=== PATIENT | female | born 1940 | race Caucasian/White ===

== ENCOUNTER 2017-01-01 17:32 | Emergency (ER) | payer MEDICARE ==
--- NOTE | 2017-01-01 18:11 | ERPHSYRPT ---
- History of Present Illness Time Seen by Provider: 01/01/17 18:04 Source: patient, family Patient Subjective Stated Complaint: stepped off ladder too soon and twisted right knee. also having pain to right hand Triage Nursing Assessment: amublated to room limping on right leg. skin w/d, color normal, resp easy. right knee tender to touch. no swelling noted. good pedal pulse noted Physician History: CC: fall Hx: 76 y/o patient of Dr Estrada/Stefanie stepped off second rung of ladder and fell at 2:30 PM today. She twisted and injured the right knee. No neck or back pain. No other injuries. No lOC. Not better with ice so came to ER. She has bilateral knee prosthesis. Severity of Pain-Max: moderate Severity of Pain-Current: moderate Lower Extremities Pain: knee: right Allergies/Adverse Reactions: Penicillins Allergy (Mild, Verified 01/01/17 18:06) rash ibuprofen [From Motrin] Allergy (Unknown, Verified 01/01/17 18:06) Swelling high doses only soy Allergy (Unknown, Verified 01/01/17 18:06) Swelling swell to the point of suffocation aspirin Adverse Reaction (Verified 01/01/17 18:06) pt is on low dose and dose fine. Pt states she brakes out with regular dose asa Home Medications: Iron,Carbonyl [Iron Chews] 65 mg PO DAILY 09/25/14 [History] Multivitamin [Multivitamins] 1 cap PO DAILY 09/25/14 [History] Omeprazole 40 mg PO DAILY 09/25/14 [History] Potassium 99 mg PO DAILY PRN PRN 09/25/14 [History] Torsemide [Demadex] 20 mg PO DAILY PRN PRN 09/25/14 [History] Alendronate Sodium 70 mg [Fosamax 70 MG] 70 mg PO WEEKLY 03/06/15 [History ] Folic Acid 1 mg PO DAILY 03/06/15 [History] Losartan Potassium 100 mg PO DAILY 03/06/15 [History] Methotrexate Sodium [Methotrexate] 6 tab PO WEEKLY 03/06/15 [History] Naproxen Sodium 220 mg [Aleve 220 MG] 440 mg PO BID 11/14/15 [History] Hydrocodone Bit/Acetaminophen [Hydrocodon-Acetaminophen 5-325] 1 each PO Q6H PRN PRN 01/17/16 [History] Metoprolol Tartrate 25 mg [Lopressor 25MG Tab] 25 mg PO HS 01/17/16 [ History] Metoprolol Tartrate 50 mg [Lopressor 50 MG] 50 mg PO DAILY 01/17/16 [ History] Prednisone 10 mg [Deltasone 10 mg] 10 mg PO DAILY 01/17/16 [History] Hx Tetanus, Diphtheria Vaccination/Date Given: No (UP TO DATE) Hx Influenza Vaccination/Date Given: Yes Hx Pneumococcal Vaccination/Date Given: Yes - Review of Systems Constitutional: No Symptoms Respiratory: No Dyspnea Cardiac: No Chest Pain, No Syncope Abdominal/Gastrointestinal: No Abdominal Pain, No Nausea, No Vomiting Musculoskeletal: Fall, Injury (right knee), No Back Pain, No Neck Pain Neurological: No Focal Weakness, No Headache, No Parasthesia All Other Systems: Reviewed and Negative - Past Medical History Pertinent Past Medical History: Yes Neurological History: No Pertinent History ENT History: Cataracts Cardiac History: Hypertension, Other Respiratory History: COPD, Pneumonia, Sleep Apnea, Other Endocrine Medical History: No Pertinent History Musculoskeletal History: Arthritis, Rheumatoid Arthritis GI Medical History: GERD, Hemorrhoids, Polyps History: No Pertinent History Psycho-Social History: No Pertinent History Female Reproductive Disorders: Abnormal Uterine Bleeding Other Medical History: POLYMYALGIA, COPD, CPAP FOR NIGHT, OXYGEN FOR NIGHT USE. - Past Surgical History Past Surgical History: Yes Neuro Surgical History: No Pertinent History Cardiac: Cardiac Catheterization Respiratory: Lobectomy Gastrointestinal: Appendectomy Genitourinary: No Pertinent History Musculoskeletal: Orthopedic Surgery Female Surgical History: Hysterectomy Other Surgical History: ZAHIDA KNEE REPLACEMENTS, knee scopes also - Social History Smoking Status: Former smoker How long have you smoked: 1 year Exposure to second hand smoke: No Drug Use: none Patient Lives Alone: No - Nursing Vital Signs Nursing Vital Signs: Initial Vital Signs Temperature 97.6 F Temperature Source Oral Pulse Rate 67 Respiratory Rate 16 Pain Intensity 8 - Physical Exam General Appearance: alert, other (pleasant lady) Eyes, Ears, Nose, Throat Exam: normal ENT inspection, moist mucous membranes Neck Exam: normal inspection, non-tender, supple, No tenderness midline Cardiovascular/Respiratory Exam: chest non-tender, normal breath sounds, regular rate/rhythm Gastrointestinal/Abdominal Exam: non-tender, soft Back Exam: normal inspection, No vertebral tenderness Hips Exam: bilateral: non-tender, normal range of motion, no evidence of injury Knees Exam: right knee: bone tenderness Ankle Exam: bilateral ankle: non-tender, normal inspection, normal range of motion Foot Exam: bilateral foot: non-tender, normal inspection, normal range of motion Neuro/Tendon Exam: normal sensation (some neuropathy reported feet), normal motor functions Mental Status Exam: alert, oriented x 3, cooperative Skin Exam: warm, dry SpO2 Interpretation: normal SpO2: 96 Oxygen Delivery: Room Air - Course Nursing assessment & vital signs reviewed: Yes - Radiology Exams right knee X-ray Interpretation: Reviewed by me, No Fracture (harware intact) Ordered Tests: Active Orders 24 hr Category Date Time Status Cold Application STAT Care 01/01/17 18:08 Active KNEE (3 VIEWS) Stat Exams 01/01/17 18:08 Taken - Progress Progress Note: 01/01/17 18:51 She has a walker at home. Will use shivam wrap. Advised follow up with Dr Diaz. She declines pain meds here or at home. Counseled pt/family regarding: diagnosis, need for follow-up, rad results - Departure Time of Disposition: 18:51 Departure Disposition: Home Clinical Impression: History of arthroplasty of right knee Sprain of right knee Qualifiers: Encounter type: initial encounter Involved ligament of knee: other ligament Qualified Code(s): S83.8X1A - Sprain of other specified parts of right knee, initial encounter Condition: Stable Critical Care Time: No Referrals: TYREL ESTRADA MD [Primary Care Provider] - REJI DIAZ [NON-STAFF PHY W/O PRIVILEGES] - Instructions: Knee Sprain, Use an Elastic Bandage-Knee Sprain, Choose and Use a Walker Additional Instructions: Shivam wrap right knee. Ice packs off and on. Use a walker to limit weight beating. Follow up next week with Dr Rush.
[2017-01-01 19:07] VITALS: BP 140/62; PULSE 64; O2SAT 95
--- NOTE | 2017-01-02 08:05 | XRAY ---
Indication: Pain following twisting injury. Comparison: None 3 views of the right knee intact with osteopenia and previous total knee arthroplasty with intact prosthesis. Tiny anterior soft tissue calcified granulomas. No other bony, articular, or soft tissue abnormalities.
== END 2017-01-01 19:28 | disposition home or self-care (01) ==
LOC: ED 17:32
DX: S83.8X1A Sprain of other specified parts of right knee, initial encounter (principal); W11.XXXA Fall on and from ladder, initial encounter; X50.0XXA Overexertion from strenuous movement or load, initial encounter; Z98.890 Other specified postprocedural states; Z79.899 Other long term (current) drug therapy; I10 Essential (primary) hypertension; J44.9 Chronic obstructive pulmonary disease, unspecified
CPT/HCPCS: 73562; 99282

== ENCOUNTER 2017-05-23 20:05 | Observation (INO) | payer MEDICARE ==
[2017-05-23] MEDS ORDERED: Pepcid 20 MG VIAL IV ONE ×2 (20:13→20:23)
[2017-05-23] MEDS ORDERED: PROVENTIL 2.5 MG/3 ML NEB IH ONE ×4 (20:13→23:20)
[2017-05-23] MEDS ORDERED: solu-MEDROL 125 MG IV ONE (20:13)
[2017-05-23] MEDS ORDERED: Sodium Chloride 0.9% 1000 ML 1,000 ML IV SCH (20:15)
[2017-05-23] MEDS ORDERED: Sodium Chloride 0.9% 1000 ML 1,000 ML ONE (20:23)
[2017-05-23] MEDS ORDERED: solu-MEDROL 125 MG ONE (20:23)
--- NOTE | 2017-05-23 20:29 | ERPHSYRPT ---
- History of Present Illness Time Seen by Provider: 05/23/17 20:10 Historian: patient, family Physician History: CC: abd pain HX: 77 y/o patient of Dr Cazares has abd pain since this AM, similar to prior diverticulitis. Some urinary dribbling and freq and burning. She had diarrhea until yesterday but none today. No vomiting. No fever or chills. She finished her abtx prescribed for infection last month. Pain is aching and moderate. She had prior abdominal surgeries including cholecystectomy, ventral hernia, hysterectomy, unsure about appy. Timing/Duration: today Allergies/Adverse Reactions: Penicillins Allergy (Mild, Verified 01/01/17 18:06) rash ibuprofen [From Motrin] Allergy (Unknown, Verified 01/01/17 18:06) Swelling high doses only soy Allergy (Unknown, Verified 01/01/17 18:06) Swelling swell to the point of suffocation aspirin Adverse Reaction (Verified 01/01/17 18:06) pt is on low dose and dose fine. Pt states she brakes out with regular dose asa Home Medications: Iron,Carbonyl [Iron Chews] 65 mg PO DAILY 09/25/14 [History] Multivitamin [Multivitamins] 1 cap PO DAILY 09/25/14 [History] Omeprazole 40 mg PO DAILY 09/25/14 [History] Potassium 99 mg PO DAILY PRN PRN 09/25/14 [History] Torsemide [Demadex] 20 mg PO DAILY PRN PRN 09/25/14 [History] Alendronate Sodium 70 mg [Fosamax 70 MG] 70 mg PO WEEKLY 03/06/15 [History ] Folic Acid 1 mg PO DAILY 03/06/15 [History] Losartan Potassium 100 mg PO DAILY 03/06/15 [History] Methotrexate Sodium [Methotrexate] 6 tab PO WEEKLY 03/06/15 [History] Naproxen Sodium 220 mg [Aleve 220 MG] 440 mg PO BID 11/14/15 [History] Hydrocodone Bit/Acetaminophen [Hydrocodon-Acetaminophen 5-325] 1 each PO Q6H PRN PRN 01/17/16 [History] Metoprolol Tartrate 25 mg [Lopressor 25MG Tab] 25 mg PO HS 01/17/16 [ History] Metoprolol Tartrate 50 mg [Lopressor 50 MG] 50 mg PO DAILY 01/17/16 [ History] Prednisone 10 mg [Deltasone 10 mg] 10 mg PO DAILY 01/17/16 [History] Hx Tetanus, Diphtheria Vaccination/Date Given: No (UP TO DATE) Hx Influenza Vaccination/Date Given: Yes Hx Pneumococcal Vaccination/Date Given: Yes - Review of Systems Constitutional: Malaise, Weakness, No Fever, No Chills Eyes: No Symptoms Ears, Nose, & Throat: No Symptoms Respiratory: No Cough, No Dyspnea Cardiac: No Chest Pain Abdominal/Gastrointestinal: Abdominal Pain, No Nausea, No Vomiting, No Constipation Genitourinary Symptoms: Dysuria, Frequency, Hesitancy Skin: No Rash Neurological: No Focal Weakness, No Headache, No Parasthesia All Other Systems: Reviewed and Negative - Past Medical History Pertinent Past Medical History: Yes Neurological History: No Pertinent History ENT History: Cataracts Cardiac History: No Pertinent History Respiratory History: COPD Endocrine Medical History: No Pertinent History Musculoskeletal History: Osteoarthritis, Rheumatoid Arthritis, Other GI Medical History: GERD, Hemorrhoids, Polyps History: No Pertinent History Psycho-Social History: No Pertinent History Female Reproductive Disorders: Abnormal Uterine Bleeding Other Medical History: RA diagnosis 2014, goes for infusion every 8 weeks. - Past Surgical History Past Surgical History: Yes Neuro Surgical History: No Pertinent History Cardiac: Cardiac Catheterization Respiratory: Lobectomy Gastrointestinal: Appendectomy Genitourinary: No Pertinent History Musculoskeletal: Orthopedic Surgery Female Surgical History: Hysterectomy Other Surgical History: ZAHIDA KNEE REPLACEMENTS, knee scopes also - Social History Smoking Status: Former smoker How long have you smoked: 1 year Exposure to second hand smoke: No Drug Use: none Patient Lives Alone: No - Nursing Vital Signs Nursing Vital Signs: Initial Vital Signs Pulse Rate 90 05/23/17 20:21 Respiratory Rate 20 05/23/17 20:21 O2 Sat by Pulse Oximetry 96 05/23/17 20:21 - Physical Exam General Appearance: alert, other (pleasant lady) Eye Exam: PERRL/EOMI Ears, Nose, Throat Exam: moist mucous membranes Neck Exam: normal inspection, non-tender, supple Respiratory Exam: normal breath sounds Cardiovascular Exam: regular rate/rhythm Gastrointestinal/Abdomen Exam: soft, tenderness (mild diffuse discomfort), No distention, No mass, No guarding Back Exam: normal inspection Extremity Exam: normal inspection, normal range of motion Neurologic Exam: alert, oriented x 3, cooperative, sensation nml, No motor deficits Skin Exam: warm, dry, No rash SpO2 Interpretation: normal SpO2: 96 Oxygen Delivery: Room Air - Course Nursing assessment & vital signs reviewed: Yes Ordered Tests: Active Orders 24 hr Category Date Time Status EKG-ER Only STAT Care 05/23/17 20:13 Active IV Insertion STAT Care 05/23/17 20:13 Active Pulse Oximetry (ED) STAT Care 05/23/17 20:13 Active BMP Stat Lab 05/23/17 20:13 Ordered Respiratory Nebulizer STAT RT 05/23/17 20:14 Completed Medication Summary Generic Name Dose Route Start Last Admin Trade Name Freq PRN Reason Stop Dose Admin Sodium Chloride 1,000 mls @ 100 mls/hr 05/23/17 20:15 05/23/17 20:26 Sodium Chloride 0.9% 1000 Ml IV 06/22/17 20:14 100 mls/hr .Q10H MALIK Administration Discontinued Medications Generic Name Dose Route Start Last Admin Trade Name Freq PRN Reason Stop Dose Admin Albuterol Sulfate 2.5 mg 05/23/17 20:13 05/23/17 20:21 Proventil 2.5 Mg/3 Ml Neb IH 05/23/17 20:14 2.5 mg STAT ONE Administration Albuterol Sulfate Confirm 05/23/17 20:17 Proventil 2.5 Mg/3 Ml Neb Administered 05/23/17 20:18 Dose 2.5 mg IH .STK-MED ONE Famotidine 20 mg 05/23/17 20:13 05/23/17 20:26 Pepcid 20 Mg Vial IV 05/23/17 20:14 20 mg STAT ONE Administration Famotidine Confirm 05/23/17 20:23 Pepcid 20 Mg Vial Administered 05/23/17 20:24 Dose 20 mg IV .STK-MED ONE Methylprednisolone Sodium Succinate 125 mg 05/23/17 20:13 05/23/17 20:26 Solu-Medrol 125 Mg IV 05/23/17 20:14 125 mg STAT ONE Administration Methylprednisolone Sodium Succinate Confirm 05/23/17 20:23 Solu-Medrol 125 Mg Administered 05/23/17 20:24 Dose 125 mg .ROUTE .STK-MED ONE - Departure Referrals: TYREL JIN MD [Primary Care Provider] -
--- NOTE | 2017-05-23 20:33 | ERPHSYRPT ---
- History of Present Illness Time Seen by Provider: 05/23/17 20:10 Source: patient Physician History: CC: allergic Hx: 77 y/o patient of Dr Jin is allergic to soft serve ice cream. She carries epi pen but has never used before. Tonite she thought butter ariana looked good so ate a small dish. She had swelling of the lips, itching, hives. She felt trouble breathing so took 3 benadryl tablets and then used epi pen and came to ER. 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 She now has some improvement. No V/D. Rash better. Still feels some itching. No chest pain. No hx of heart disease. Timing/Duration: today Severity: severe Allergies/Adverse Reactions: Penicillins Allergy (Mild, Verified 01/01/17 18:06) rash ibuprofen [From Motrin] Allergy (Unknown, Verified 01/01/17 18:06) Swelling high doses only soy Allergy (Unknown, Verified 01/01/17 18:06) Swelling swell to the point of suffocation aspirin Adverse Reaction (Verified 01/01/17 18:06) pt is on low dose and dose fine. Pt states she brakes out with regular dose asa Home Medications: Iron,Carbonyl [Iron Chews] 65 mg PO DAILY 09/25/14 [History] Multivitamin [Multivitamins] 1 cap PO DAILY 09/25/14 [History] Omeprazole 40 mg PO DAILY 09/25/14 [History] Potassium 99 mg PO DAILY PRN PRN 09/25/14 [History] Torsemide [Demadex] 20 mg PO DAILY PRN PRN 09/25/14 [History] Alendronate Sodium 70 mg [Fosamax 70 MG] 70 mg PO WEEKLY 03/06/15 [History ] Folic Acid 1 mg PO DAILY 03/06/15 [History] Losartan Potassium 100 mg PO DAILY 03/06/15 [History] Methotrexate Sodium [Methotrexate] 6 tab PO WEEKLY 03/06/15 [History] Naproxen Sodium 220 mg [Aleve 220 MG] 440 mg PO BID 11/14/15 [History] Hydrocodone Bit/Acetaminophen [Hydrocodon-Acetaminophen 5-325] 1 each PO Q6H PRN PRN 01/17/16 [History] Metoprolol Tartrate 25 mg [Lopressor 25MG Tab] 25 mg PO HS 01/17/16 [ History] Metoprolol Tartrate 50 mg [Lopressor 50 MG] 50 mg PO DAILY 01/17/16 [ History] Prednisone 10 mg [Deltasone 10 mg] 10 mg PO DAILY 01/17/16 [History] Hx Tetanus, Diphtheria Vaccination/Date Given: No (UP TO DATE) Hx Influenza Vaccination/Date Given: Yes Hx Pneumococcal Vaccination/Date Given: Yes - Review of Systems Constitutional: No Fever, No Chills Eyes: No Symptoms Ears, Nose, & Throat: Mouth Swelling Respiratory: Dyspnea, No Cough Cardiac: No Chest Pain, No Palpitations, No Syncope Abdominal/Gastrointestinal: No Abdominal Pain, No Nausea, No Vomiting, No Diarrhea Skin: Pruritis, Rash Neurological: No Dizziness, No Focal Weakness, No Headache, No Parasthesia All Other Systems: Reviewed and Negative - Past Medical History Pertinent Past Medical History: Yes Neurological History: No Pertinent History ENT History: Cataracts Cardiac History: No Pertinent History Respiratory History: COPD Endocrine Medical History: No Pertinent History Musculoskeletal History: Osteoarthritis, Rheumatoid Arthritis, Other GI Medical History: GERD, Hemorrhoids, Polyps History: No Pertinent History Psycho-Social History: No Pertinent History Female Reproductive Disorders: Abnormal Uterine Bleeding Other Medical History: RA diagnosis 2014, goes for infusion every 8 weeks. - Past Surgical History Past Surgical History: Yes Neuro Surgical History: No Pertinent History Cardiac: Cardiac Catheterization Respiratory: Lobectomy Gastrointestinal: Appendectomy Genitourinary: No Pertinent History Musculoskeletal: Orthopedic Surgery Female Surgical History: Hysterectomy Other Surgical History: ZAHIDA KNEE REPLACEMENTS, knee scopes also - Social History Smoking Status: Former smoker How long have you smoked: 1 year Exposure to second hand smoke: No Drug Use: none Patient Lives Alone: No - Nursing Vital Signs Nursing Vital Signs: Initial Vital Signs Temperature 98.1 F 05/23/17 20:05 Pulse Rate 88 05/23/17 20:05 Respiratory Rate 20 05/23/17 20:05 Blood Pressure 154/78 05/23/17 20:05 O2 Sat by Pulse Oximetry 98 05/23/17 20:05 Pain Scale Pain Intensity 0 - Physical Exam General Appearance: alert, other (no stridor) Eye Exam: PERRL/EOMI Ears, Nose, Throat Exam: moist mucous membranes, other (no lip swelling) Neck Exam: normal inspection, non-tender, supple Respiratory Exam: normal breath sounds, lungs clear, No respiratory distress, No wheezing Cardiovascular Exam: regular rate/rhythm, No murmur Gastrointestinal/Abdomen Exam: soft, No tenderness, No distention Extremity Exam: normal inspection, normal range of motion Neurologic Exam: alert, oriented x 3, cooperative, sensation nml, No motor deficits Skin Exam: warm, dry, No rash SpO2 Interpretation: normal SpO2: 96 Oxygen Delivery: Room Air - Course Nursing assessment & vital signs reviewed: Yes EKG Interpreted by Me: RATE (87), Sinus Rhythm, NORMAL AXIS, NORMAL INTERVALS ( QTc 433), NORMAL QRS, NORMAL ST-T Ordered Tests: Active Orders 24 hr Category Date Time Status EKG-ER Only STAT Care 05/23/17 20:13 Active EKG-ER Only STAT Care 05/23/17 23:15 Active IV Insertion STAT Care 05/23/17 20:13 Active Pulse Oximetry (ED) STAT Care 05/23/17 20:13 Active BMP Stat Lab 05/23/17 20:32 Completed CBC W DIFF Stat Lab 05/23/17 20:13 Completed TROPONIN Q3H Lab 05/23/17 20:13 Completed TROPONIN Q3H Lab 05/24/17 02:15 Ordered TROPONIN Q3H Lab 05/24/17 05:15 Ordered TROPONIN Q3H Lab 05/24/17 08:15 Ordered TROPONIN Routine Lab 05/23/17 23:30 Completed Respiratory Nebulizer STAT RT 05/23/17 20:14 Completed Respiratory Nebulizer STAT RT 05/23/17 23:05 Completed Medication Summary Generic Name Dose Route Start Last Admin Trade Name Freq PRN Reason Stop Dose Admin Sodium Chloride 1,000 mls @ 100 mls/hr 05/23/17 20:15 05/23/17 20:26 Sodium Chloride 0.9% 1000 Ml IV 06/22/17 20:14 100 mls/hr .Q10H MALIK Administration Discontinued Medications Generic Name Dose Route Start Last Admin Trade Name Freq PRN Reason Stop Dose Admin Albuterol Sulfate 2.5 mg 05/23/17 20:13 05/23/17 20:21 Proventil 2.5 Mg/3 Ml Neb IH 05/23/17 20:14 2.5 mg STAT ONE Administration Albuterol Sulfate Confirm 05/23/17 20:17 Proventil 2.5 Mg/3 Ml Neb Administered 05/23/17 20:18 Dose 2.5 mg IH .STK-MED ONE Albuterol Sulfate 2.5 mg 05/23/17 23:05 05/23/17 23:21 Proventil 2.5 Mg/3 Ml Neb IH 05/23/17 23:06 2.5 mg STAT ONE Administration Albuterol Sulfate Confirm 05/23/17 23:20 Proventil 2.5 Mg/3 Ml Neb Administered 05/23/17 23:21 Dose 2.5 mg IH .STK-MED ONE Diphenhydramine HCl 25 mg 05/23/17 23:15 05/23/17 23:25 Benadryl 50 Mg/Ml IV 05/23/17 23:16 25 mg STAT ONE Administration Diphenhydramine HCl Confirm 05/23/17 23:24 Benadryl 50 Mg/Ml Administered 05/23/17 23:25 Dose 50 mg .ROUTE .STK-MED ONE Epinephrine HCl 0.3 mg 05/23/17 22:26 05/23/17 22:31 Epinephrine 1mg/Ml Amp IM 05/23/17 22:27 0.3 mg STAT ONE Administration Epinephrine HCl Confirm 05/23/17 22:29 Epinephrine 1mg/Ml Amp Administered 05/23/17 22:30 Dose 1 mg .ROUTE .STK-MED ONE Famotidine 20 mg 05/23/17 20:13 05/23/17 20:26 Pepcid 20 Mg Vial IV 05/23/17 20:14 20 mg STAT ONE Administration Famotidine Confirm 05/23/17 20:23 Pepcid 20 Mg Vial Administered 05/23/17 20:24 Dose 20 mg IV .STK-MED ONE Methylprednisolone Sodium Succinate 125 mg 05/23/17 20:13 05/23/17 20:26 Solu-Medrol 125 Mg IV 05/23/17 20:14 125 mg STAT ONE Administration Methylprednisolone Sodium Succinate Confirm 05/23/17 20:23 Solu-Medrol 125 Mg Administered 05/23/17 20:24 Dose 125 mg .ROUTE .STK-MED ONE Lab/Rad Data: Laboratory Result Diagrams 05/23/17 20:13 05/23/17 20:32 Laboratory Results 05/23/17 05/23/17 05/23/17 Range/Units 23:30 20:32 20:13 WBC 5.6 (4.0-10.5) K/mm3 RBC 3.56 L (4.1-5.4) M/mm3 Hgb 11.7 L (12.0-16.0) gm/dl Hct 36.2 (35-47) % MCV 101.7 H (78-100) fl MCH 32.8 H (26-32) pg MCHC 32.3 (32-36) g/dl RDW 13.8 (11.5-14.0) % Plt Count 155 (150-450) K/mm3 MPV 13.4 H (6-9.5) fl Gran % 37.3 (36.0-66.0) % Lymphocytes % 49.5 H (24.0-44.0) % Monocytes % 10.9 (0.0-12.0) % Eosinophils % 1.8 (0.00-5.0) % Basophils % 0.5 (0.0-0.4) % Basophils # 0.03 (0-0.4) Sodium 142 (136-145) mEq/L Potassium 4.6 (3.5-5.1) mEq/L Chloride 106 (98-107) mEq/L Carbon Dioxide 24.2 (21-32) mEq/L Anion Gap 16.3 H (5-15) MEQ/L BUN 21 H (9-20) mg/dL Creatinine 1.24 (0.55-1.30) mg/dl Estimated GFR 45 ML/MIN Glucose 140 H (70-110) MG/DL Calcium 9.1 (8.5-10.1) mg/dL Troponin I < 0.017 (0.000-0.056) ng/ml 05/23/17 Range/Units 20:13 WBC (4.0-10.5) K/mm3 RBC (4.1-5.4) M/mm3 Hgb (12.0-16.0) gm/dl Hct (35-47) % MCV (78-100) fl MCH (26-32) pg MCHC (32-36) g/dl RDW (11.5-14.0) % Plt Count (150-450) K/mm3 MPV (6-9.5) fl Gran % (36.0-66.0) % Lymphocytes % (24.0-44.0) % Monocytes % (0.0-12.0) % Eosinophils % (0.00-5.0) % Basophils % (0.0-0.4) % Basophils # (0-0.4) Sodium (136-145) mEq/L Potassium (3.5-5.1) mEq/L Chloride (98-107) mEq/L Carbon Dioxide (21-32) mEq/L Anion Gap (5-15) MEQ/L BUN (9-20) mg/dL Creatinine (0.55-1.30) mg/dl Estimated GFR ML/MIN Glucose (70-110) MG/DL Calcium (8.5-10.1) mg/dL Troponin I < 0.017 (0.000-0.056) ng/ml - Progress Progress Note: 05/23/17 22:27 She was feeling better. Up to BR. Itchign gone. Then vomited. Now has feeling of dyspnea and throat closing like before. Will repeat epi IM. She will need to stay for observation. 05/24/17 00:30 REpeat EKG wnl. She ambulated to BR. She is breathing better. 05/24/17 00:[address] Elena and will place in ICU observation for anaphylaxis. 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
[2017-05-23 20:49] LABS: ANION GAP 16.3 MEQ/L (5-15); Carbon Dioxide 24.2 mEq/L (21-32); Potassium 4.6 mEq/L (3.5-5.1)
[2017-05-23] MEDS ORDERED: EPINEPHRINE 1MG/ML AMP IM ONE (22:26)
[2017-05-23] MEDS ORDERED: EPINEPHRINE 1MG/ML AMP ONE (22:29)
[2017-05-23] MEDS ORDERED: BENADRYL 50 MG/ML IV ONE (23:15)
[2017-05-23 23:20] LABS: BASOPHIL % 0.5 % (0.0-0.4); Eosinophil % 1.8 % (0.00-5.0); Granulocytes % 37.3 % (36.0-66.0); Lymphocytes % 49.5 % (24.0-44.0); Mean Cell Volume 101.7 fl (78-100); Mean Platelet Volume 13.4 fl (6-9.5); Monocytes % 10.9 % (0.0-12.0); Platelet Count 155 K/mm3 (150-450); Red Blood Count 3.56 M/mm3 (4.1-5.4); Red Cell Distribution Width 13.8 % (11.5-14.0); White Blood Count 5.6 K/mm3 (4.0-10.5)
[2017-05-23] MEDS ORDERED: BENADRYL 50 MG/ML ONE (23:24)
[2017-05-23 23:25] LABS: Mean Corpuscular Hemoglobin 32.8 pg (26-32)
[2017-05-24] MEDS ORDERED: PROVENTIL 2.5 MG/3 ML NEB IH PRN (01:22)
[2017-05-24] MEDS ORDERED: solu-MEDROL 125 MG IV SCH ×2 (01:22→12:00)
[2017-05-24] MEDS ORDERED: Sodium Chloride 0.9% 1000 ML 1,000 ML IV SCH (01:22)
[2017-05-24] MEDS ORDERED: BENADRYL 50 MG/ML IV PRN (01:22)
[2017-05-24] MEDS ORDERED: NovoLOG Insulin SQ PRN (01:22)
[2017-05-24 08:32] VITALS: PULSE 78; O2SAT 96
--- NOTE | 2017-05-24 08:35 | PCM.SSS ---
History of Present Illness - Chief Complaint Chief Complaint: anaphylaxis History of Present Illness: is a 77 year old female who has a history of soft serve ice cream allergy. Yesterday evening she ate some hard serve butter pecan ice cream and developed tingling around her mouth, difficulty swallowing and shortness of breath. she took benadryl and used her epi-pen with improvement, her symptoms recurred in the ER so she had to be given a second dose and was kept for observation. she has no difficulty swallowing, is tolerating a regular diet, oxygen saturation is normal and she has no rash or complaints today. - Review of Systems Constitutional: No Fever, No Chills Respiratory: No Cough, No Short Of Breath Cardiac: No Chest Pain, No Edema, No Syncope Abdominal/Gastrointestinal: No Abdominal Pain, No Nausea, No Vomiting, No Diarrhea Skin: Rash All Other Systems: Reviewed and Negative Medications & Allergies Home Medications: Home Medication List Iron,Carbonyl [Iron Chews] 65 mg PO DAILY 09/25/14 [History Confirmed 05/24/17] Multivitamin [Multivitamins] 1 cap PO DAILY 09/25/14 [History Confirmed 05/24/17 ] Omeprazole 40 mg PO DAILY 09/25/14 [History Confirmed 05/24/17] Potassium 99 mg PO DAILY PRN PRN 09/25/14 [History Confirmed 05/24/17] Torsemide [Demadex] 20 mg PO DAILY PRN PRN 09/25/14 [History Confirmed 05/24/17] Alendronate Sodium 70 mg [Fosamax 70 MG] 70 mg PO WEEKLY 03/06/15 [ History Confirmed 05/24/17] Folic Acid 1 mg PO DAILY 03/06/15 [History Confirmed 05/24/17] Losartan Potassium 50 mg PO BID 03/06/15 [History Confirmed 05/24/17] Methotrexate Sodium [Methotrexate] 6 tab PO WEEKLY 03/06/15 [History Confirmed 05/24/17] Albuterol 2.5 mg/3 ml Neb [Proventil 2.5 mg/3 ml Neb] 2.5 mg IH QID #30 udcap 11/17/15 [Rx Confirmed 05/24/17] Metoprolol Tartrate 50 mg [Lopressor 50 MG] 100 mg PO BID 01/17/16 [ History Confirmed 05/24/17] Methylprednisolone [Medrol Dose Pack] 4 mg PO UD #1 pack 05/24/17 [Rx] Allergies/Adverse Reactions: Allergies Allergy/AdvReac Type Severity Reaction Status Date / Time Penicillins Allergy Mild Verified 01/01/17 18:06 ibuprofen [From Motrin] Allergy Unknown Swelling Verified 01/01/17 18:06 soy Allergy Unknown Swelling Verified 01/01/17 18:06 aspirin AdvReac Verified 01/01/17 18:06 - Past Medical History Past Medical History: Yes Neurological History: No Pertinent History ENT History: Cataracts Cardiac History: No Pertinent History Respiratory History: COPD Endocrine Medical History: No Pertinent History Musculoskelatal History: Osteoarthritis, Rheumatoid Arthritis, Other GI Medical History: GERD, Hemorrhoids, Polyps History: No Pertinent History Pyscho-Social History: No Pertinent History Reproductive Disorders: No Pertinent History Comment: RA diagnosis 2014, goes for infusion every 8 weeks. - Female History Are you now?: No - Past Surgical History Past Surgical History: Yes Neuro Surgical History: No Pertinent History Cardiac History: Cardiac Catheterization Respiratory Surgery: Lobectomy GI Surgical History: Appendectomy Genitourinary Surgical Hx: No Pertinent History Musculskeletal Surgical Hx: Orthopedic Surgery Female Surgical History: Hysterectomy Other Surgical History: ZAHIDA KNEE REPLACEMENTS, knee scopes x4, carpel tunnel x2 - Social History Smoking Status: Former smoker How long have you smoked: 1 year Exposure to second hand smoke: No Alcohol: None Drug Use: none - Physical Exam Vital Signs: Vital Signs - 24 hr Temp Pulse Resp BP Pulse Ox 05/24/17 06:00 60 18 94 L 05/24/17 04:00 60 20 135/66 93 L 05/24/17 01:37 97.9 F 85 20 144/71 96 05/24/17 01:28 88 18 96 05/24/17 00:57 101 H 20 140/62 96 05/24/17 00:54 96 05/24/17 00:44 90 20 140/62 95 05/23/17 23:54 94 H 18 140/76 94 L 05/23/17 23:29 76 20 161/75 100 05/23/17 23:21 77 23 93 L 05/23/17 23:04 98.1 F 80 22 153/66 97 05/23/17 22:42 81 24 162/78 95 05/23/17 22:35 73 28 H 152/79 95 05/23/17 22:09 70 18 151/83 96 05/23/17 21:10 90 18 131/50 96 05/23/17 20:34 98 05/23/17 20:21 90 20 96 05/23/17 20:05 98.1 F 88 20 154/78 98 General Appearance: no apparent distress, alert Eye Exam: PERRL/EOMI, eyes nml inspection Neck Exam: normal inspection, non-tender, supple, full range of motion Respiratory Exam: normal breath sounds, lungs clear, No respiratory distress Cardiovascular Exam: regular rate/rhythm, normal heart sounds, normal peripheral pulses Gastrointestinal/Abdomen Exam: soft, normal bowel sounds, No tenderness, No mass Extremity Exam: normal inspection, normal range of motion, pelvis stable Results - Labs Lab/Micro Results: Accuchecks Date 05/24/17 Time 07:49 Accucheck Value: 146 Lab Results-Last 24 Hours 05/24/17 05/24/17 Range/Units 02:24 05:15 Troponin I < 0.017 < 0.017 (0.000-0.056) ng/ml Accuchecks Date 05/24/17 Time 07:49 Accucheck Value: 146 - Other Procedures and Tests Respiratory Therapy 05/24/17 01:47 Oxygen NASAL CANNULA 2 lpm Respiratory Nebulizer PRN Assessment/Plan (1) Anaphylaxis due to food Current Visit: No Status: Acute Qualifiers: Encounter type: initial encounter Qualified Code(s): T78.00XA - Anaphylactic reaction due to unspecified food, initial encounter Assessment & Plan: will send home on medrol dosepak Code(s): T78.00XA - ANAPHYLACTIC REACTION DUE TO UNSPECIFIED FOOD, [facility] Summary - Vitals & Intake/Output Vital Signs: Vital Signs Temperature 97.9 F 05/24/17 01:37 Pulse Rate 60 05/24/17 06:00 Respiratory Rate 18 05/24/17 06:00 Blood Pressure 135/66 05/24/17 04:00 O2 Sat by Pulse Oximetry 94 L 05/24/17 06:00 Intake & Output: Intake & Output 05/21/17 05/22/17 05/23/17 05/24/17 11:59 11:59 11:59 11:59 Intake Total 560 Balance 560 Weight 92.7 kg - Lab Result Diagrams: 05/23/17 20:13 05/23/17 20:32 Lab Results-Last 24 Hrs: Accuchecks Date 05/24/17 Time 07:49 Accucheck Value: 146 Lab Results-Last 24 Hours 05/24/17 05/24/17 Range/Units 02:24 05:15 Troponin I < 0.017 < 0.017 (0.000-0.056) ng/ml Micro Results-Entire Visit: Accuchecks Date 05/24/17 Time 07:49 Accucheck Value: 146 - Procedures and Test Procedures and Tests throughout Hospitalization: Therapy Orders & Screens 05/24/17 01:47 Oxygen NASAL CANNULA 2 lpm Comment: TO KEEP SPO2 >92% PER R.T. PROTOCOL Diagnosis: anaphylaxis Respiratory Nebulizer PRN Comment: ALBUTEROL Q4PRN FOR SOB/WHEEZING Diagnosis: anaphylaxis 05/24/17 01:48 Respiratory Therapy Consult ROUTINE Comment: Reason For Exam: Diagnosis: anaphylaxis - Discharge Disposition: Home, Self-Care Condition: Stable Prescriptions: New Methylprednisolone [Medrol Dose Pack] 4 mg PO UD #1 pack Continue Iron,Carbonyl [Iron Chews] 65 mg PO DAILY Torsemide [Demadex] 20 mg PO DAILY PRN PRN PRN Reason: FLUID RETENTION Omeprazole 40 mg PO DAILY Multivitamin [Multivitamins] 1 cap PO DAILY Potassium 99 mg PO DAILY PRN PRN PRN Reason: FLUID RETENTION Alendronate Sodium 70 mg [Fosamax 70 MG] 70 mg PO WEEKLY Methotrexate Sodium [Methotrexate] 6 tab PO WEEKLY Losartan Potassium 50 mg PO BID Folic Acid 1 mg PO DAILY Albuterol 2.5 mg/3 ml Neb [Proventil 2.5 mg/3 ml Neb] 2.5 mg IH QID # 30 udcap Metoprolol Tartrate 50 mg [Lopressor 50 MG] 100 mg PO BID Follow up with: TYREL JIN MD [Primary Care Provider] -
[2017-05-24 08:49] VITALS: BP 156/77
[2017-05-24] MEDS ORDERED: Pepcid 20 MG VIAL IV SCH (10:00)
== END 2017-05-24 10:00 | disposition home or self-care (01) ==
LOC: ED 20:05 → ICU 05-24 01:05
PROVIDERS: ADMIT Internal Medicine; ATTEND Family Medicine
DX: T78.07XA Anaphylactic reaction due to milk and dairy products, initial encounter (principal)
CPT/HCPCS: 36000; 36415; 80048; 84484; 85025; 93005; 93268; 94640; 96360; 96361; 96372; 99285; G0378; J0171; J1200; J2930; A9270-GY

== ENCOUNTER 2019-04-19 11:39 | Emergency (ER) | payer MEDICARE ==
[2019-04-19] MEDS ORDERED: Nitrostat 0.4 MG (ED) SL ONE ×2 (12:00→12:22)
[2019-04-19] MEDS ORDERED: Sodium Chloride 0.9% 1000 ML 1,000 ML IV SCH (12:00)
[2019-04-19] MEDS ORDERED: Pepcid 20 MG VIAL IV ONE ×2 (12:00→12:22)
[2019-04-19] MEDS ORDERED: BABY ASPIRIN 81 MG CHEW PO ONE (12:00)
--- NOTE | 2019-04-19 12:21 | XRAY ---
Indication: Dyspnea. Short of breath. Comparison: August 30, 2006. Portable chest remains clear again with right upper lobe fibrosis/scarring. Heart is not enlarged with interval enlarging large hiatal hernia and intrathoracic stomach. Bony thorax intact again with osteopenia and degenerative changes.
--- NOTE | 2019-04-19 12:21 | ERPHSYRPT ---
- History of Present Illness Historian: patient Exam Limitations: no limitations Patient Subjective Stated Complaint: Pt states "I have had chest pressure for the past 3 days. I am not sure what I was doing when it first started. " Triage Nursing Assessment: Pt presented through the front. Pt brought down from [facility] due to having chest pressure. Pt in no apparent respiratory distres. Pt able to speak in clear full sentences. Timing/Duration: day(s) (3) Location: substernal Chest Pain Radiation: no radiation Severity of Pain-Max: moderate Severity of Pain-Current: moderate Modifying Factors: Improves With: nothing Associated Symptoms: No nausea, No vomiting, No palpitations, No heartburn, No abdominal pain, No shortness of breath, No cough, No hurts to breathe, No diaphoresis, No chills, No fever, No fatigue, No weakness, No swelling/lump in chest, No syncope, No rash, No headache, No dizziness, No edema, No back pain Prior Chest Pain/Cardiac Workup: no prior chest pain Nitro Today/Relief: no nitro taken today Aspirin Treatment Today: no aspirin today Allergies/Adverse Reactions: Penicillins Allergy (Mild, Verified 01/01/17 18:06) rash ibuprofen [From Motrin] Allergy (Unknown, Verified 01/01/17 18:06) Swelling high doses only soy Allergy (Unknown, Verified 01/01/17 18:06) Swelling swell to the point of suffocation aspirin Adverse Reaction (Verified 01/01/17 18:06) pt is on low dose and dose fine. Pt states she brakes out with regular dose asa Home Medications: Iron,Carbonyl [Iron Chews] 65 mg PO DAILY 09/25/14 [History] Multivitamin [Multivitamins] 1 cap PO DAILY 09/25/14 [History] Omeprazole 40 mg PO DAILY 09/25/14 [History] Potassium 99 mg PO DAILY PRN PRN 09/25/14 [History] Torsemide [Demadex] 20 mg PO DAILY PRN PRN 09/25/14 [History] Alendronate Sodium 70 mg [Fosamax 70 MG] 70 mg PO WEEKLY 03/06/15 [History ] Folic Acid 1 mg PO DAILY 03/06/15 [History] Losartan Potassium 50 mg PO BID 03/06/15 [History] Methotrexate Sodium [Methotrexate] 6 tab PO WEEKLY 03/06/15 [History] Metoprolol Tartrate 50 mg [Lopressor 50 MG] 100 mg PO BID 01/17/16 [ History] Hx Tetanus, Diphtheria Vaccination/Date Given: No Hx Influenza Vaccination/Date Given: Yes Hx Pneumococcal Vaccination/Date Given: Yes Immunizations Up to Date: Yes - Review of Systems Constitutional: No Fever, No Chills Eyes: No Symptoms Ears, Nose, & Throat: No Symptoms Respiratory: No Cough, No Dyspnea, No Dyspnea on Exertion (ROONEY) Cardiac: Chest Pain, No Edema, No Syncope Abdominal/Gastrointestinal: No Abdominal Pain, No Nausea, No Vomiting, No Diarrhea, No Hematemesis, No Hematochezia Genitourinary Symptoms: No Dysuria, No Hematuria, No Flank Pain Musculoskeletal: No Back Pain, No Neck Pain Skin: No Rash Neurological: No Dizziness, No Focal Weakness, No Sensory Changes Psychological: No Symptoms Endocrine: No Symptoms Hematologic/Lymphatic: No Easy Bleeding, No Easy Bruising All Other Systems: Reviewed and Negative - Past Medical History Pertinent Past Medical History: Yes Neurological History: No Pertinent History ENT History: Cataracts Cardiac History: No Pertinent History Respiratory History: COPD Endocrine Medical History: No Pertinent History Musculoskeletal History: Osteoarthritis, Rheumatoid Arthritis, Other GI Medical History: GERD, Hemorrhoids, Polyps History: No Pertinent History Psycho-Social History: No Pertinent History Female Reproductive Disorders: No Pertinent History Other Medical History: RA diagnosis 2014, goes for infusion every 8 weeks. - Past Surgical History Past Surgical History: Yes Neuro Surgical History: No Pertinent History Cardiac: Cardiac Catheterization Respiratory: Lobectomy Gastrointestinal: Appendectomy Genitourinary: No Pertinent History Musculoskeletal: Orthopedic Surgery Female Surgical History: Hysterectomy Other Surgical History: ZAHIDA KNEE REPLACEMENTS, knee scopes x4, carpel tunnel x2 - Social History Smoking Status: Former smoker How long have you smoked: 1 year Exposure to second hand smoke: Yes Drug Use: none Patient Lives Alone: No - Female History Hx Now: No - Nursing Vital Signs Nursing Vital Signs: Initial Vital Signs Temperature 97.3 F 04/19/19 11:44 Pulse Rate 60 04/19/19 11:44 Respiratory Rate 16 04/19/19 11:44 Blood Pressure 161/61 04/19/19 11:44 O2 Sat by Pulse Oximetry 94 L 04/19/19 11:44 Pain Scale Pain Intensity 0 - Physical Exam General Appearance: no apparent distress, alert Eye Exam: PERRL/EOMI, eyes nml inspection Ears, Nose, Throat Exam: normal ENT inspection, moist mucous membranes Neck Exam: normal inspection, non-tender, supple, full range of motion Respiratory Exam: normal breath sounds, lungs clear, No respiratory distress, No accessory muscle use, No crackles/rales, No rhonchi, No wheezing Cardiovascular Exam: regular rate/rhythm, normal heart sounds Gastrointestinal/Abdomen Exam: soft, No tenderness, No mass Back Exam: normal inspection, No CVA tenderness, No vertebral tenderness Extremity Exam: normal inspection, normal range of motion, No calf tenderness Neurologic Exam: alert, oriented x 3, cooperative, normal mood/affect, sensation nml, No motor deficits Skin Exam: normal color, warm, dry SpO2: 94 - Course Nursing assessment & vital signs reviewed: Yes EKG Interpreted by Me: RATE (63), Sinus Rhythm, NORMAL AXIS, NORMAL INTERVALS, NORMAL QRS, NORMAL ST-T, Other (no change from comparison EKG from 05/24/2017) - Radiology Exams Chest X-ray Interpretation: Reviewed by me, No Pneumonia, No Pneumothorax, Nml Alignment, Nml Heart Size, Pneumonia, Other (interval enlarging large hiatal hernia and intrathoracic stomach. Right upper lobe fibrosis/scarring. Bony thorax intact again with osteopenia and degenerative changes.) Ordered Tests: Active Orders 24 hr Category Date Time Status Drywall Application Supervisor STAT Care 04/19/19 12:00 Active EKG-ER Only STAT Care 04/19/19 12:00 Active IV Insertion STAT Care 04/19/19 12:00 Active Pulse Oximetry (ED) STAT Care 04/19/19 12:00 Active Re-Check Vital Signs STAT Care 04/19/19 12:00 Active CHEST 1 VIEW (PORTABLE) Stat Exams 04/19/19 12:00 Completed AMYLASE Stat Lab 04/19/19 13:44 Ordered CBC W DIFF Stat Lab 04/19/19 12:00 Completed CK-Creatinine Phosphokinase Stat Lab 04/19/19 12:00 Completed CMP Stat Lab 04/19/19 12:00 Completed LIPASE Stat Lab 04/19/19 13:44 Ordered MAGNESIUM Stat Lab 04/19/19 12:00 Completed NT PRO BNP Stat Lab 04/19/19 12:00 Completed PROTIME WITH INR Stat Lab 04/19/19 12:00 Completed PTT Stat Lab 04/19/19 12:00 Completed TROPONIN Q3H Lab 04/19/19 12:00 Completed TROPONIN Q3H Lab 04/19/19 15:00 Ordered TROPONIN Q3H Lab 04/19/19 18:00 Ordered TROPONIN Q3H Lab 04/19/19 21:00 Ordered TROPONIN Q3H Lab 04/20/19 00:00 Ordered Medication Summary Generic Name Dose Route Start Last Admin Trade Name Freq PRN Reason Stop Dose Admin Sodium Chloride 1,000 mls @ 100 mls/hr 04/19/19 12:00 04/19/19 12:24 Sodium Chloride 0.9% 1000 Ml IV 05/19/19 11:59 100 mls/hr .Q10H MALIK Administration Discontinued Medications Generic Name Dose Route Start Last Admin Trade Name Freq PRN Reason Stop Dose Admin Aspirin 324 mg 04/19/19 12:00 04/19/19 12:23 Baby Aspirin 81 Mg Chew PO 04/19/19 12:01 324 mg STAT ONE Administration Aspirin Confirm 04/19/19 12:22 Baby Aspirin 81 Mg Chew Administered 04/19/19 12:23 Dose 324 mg .ROUTE .STK-MED ONE Famotidine 20 mg 04/19/19 12:00 04/19/19 12:24 Pepcid 20 Mg Vial IV 04/19/19 12:01 20 mg STAT ONE Administration Famotidine Confirm 04/19/19 12:22 Pepcid 20 Mg Vial Administered 04/19/19 12:23 Dose 20 mg IV .STK-MED ONE Nitroglycerin 0.4 mg 04/19/19 12:00 04/19/19 12:24 Nitrostat 0.4 Mg (Ed) SL 04/19/19 12:01 0.4 mg STAT ONE Administration Nitroglycerin Confirm 04/19/19 12:22 Nitrostat 0.4 Mg (Ed) Administered 04/19/19 12:23 Dose 0.4 mg SL .STK-MED ONE Lab/Rad Data: Laboratory Result Diagrams 04/19/19 12:00 04/19/19 12:00 Laboratory Results 04/19/19 04/19/19 04/19/19 Range/Units Unknown 12:00 12:00 WBC (4.0-10.5) K/mm3 RBC (4.1-5.4) M/mm3 Hgb (12.0-16.0) gm/dl Hct (35-47) % MCV (78-100) fl MCH (26-32) pg MCHC (32-36) g/dl RDW (11.5-14.0) % Plt Count (150-450) K/mm3 MPV (6-9.5) fl Gran % (36.0-66.0) % Eos # (Auto) (0-0.5) Absolute Lymphs (auto) (1.0-4.6) Absolute Monos (auto) (0.0-1.3) Lymphocytes % (24.0-44.0) % Monocytes % (0.0-12.0) % Eosinophils % (0.00-5.0) % Basophils % (0.0-0.4) % Absolute Granulocytes (1.4-6.9) Basophils # (0-0.4) PT 11.3 (9.95-12.35) SECONDS INR 1.00 (0.8-3.0) APTT 28.2 (25.3-37.0) SECONDS Sodium 140 (137-145) mmol/L Potassium 4.2 (3.5-5.1) mmol/L Chloride 107 (98-107) mmol/L Carbon Dioxide 27 (22-30) mmol/L Anion Gap 10.0 (5-15) MEQ/L BUN 24 H (7-17) mg/dL Creatinine 1.16 H (0.52-1.04) mg/dL Estimated GFR 48.1 ML/MIN Glucose 129 H (74-106) mg/dL Calcium 9.4 (8.4-10.2) mg/dL Magnesium 1.7 (1.6-2.3) mg/dL Total Bilirubin 0.40 (0.2-1.3) mg/dL AST 26 (14-36) U/L ALT 24 (0-35) U/L Alkaline Phosphatase 57 (38-126) U/L Creatine Kinase 32 (30-135) U/L Troponin I (0.000-0.034) ng/mL NT-Pro-B Natriuret Pep 415 (0-1800) pg/mL Serum Total Protein 7.6 (6.3-8.2) g/dL Albumin 3.8 (3.5-5.0) g/dL Amylase 51 (30-110) U/L Lipase 77 (23-300) U/L 04/19/19 04/19/19 Range/Units 12:00 12:00 WBC 4.9 (4.0-10.5) K/mm3 RBC 3.42 L (4.1-5.4) M/mm3 Hgb 11.3 L (12.0-16.0) gm/dl Hct 35.7 (35-47) % MCV 104.4 H (78-100) fl MCH 33.0 H (26-32) pg MCHC 31.7 L (32-36) g/dl RDW 13.6 (11.5-14.0) % Plt Count 159 (150-450) K/mm3 MPV 10.0 H (6-9.5) fl Gran % 60.1 (36.0-66.0) % Eos # (Auto) 0.14 (0-0.5) Absolute Lymphs (auto) 1.23 (1.0-4.6) Absolute Monos (auto) 0.54 (0.0-1.3) Lymphocytes % 25.3 (24.0-44.0) % Monocytes % 11.1 (0.0-12.0) % Eosinophils % 2.9 (0.00-5.0) % Basophils % 0.6 (0.0-0.4) % Absolute Granulocytes 2.92 (1.4-6.9) Basophils # 0.03 (0-0.4) PT (9.95-12.35) SECONDS INR (0.8-3.0) APTT (25.3-37.0) SECONDS Sodium (137-145) mmol/L Potassium (3.5-5.1) mmol/L Chloride (98-107) mmol/L Carbon Dioxide (22-30) mmol/L Anion Gap (5-15) MEQ/L BUN (7-17) mg/dL Creatinine (0.52-1.04) mg/dL Estimated GFR ML/MIN Glucose (74-106) mg/dL Calcium (8.4-10.2) mg/dL Magnesium (1.6-2.3) mg/dL Total Bilirubin (0.2-1.3) mg/dL AST (14-36) U/L ALT (0-35) U/L Alkaline Phosphatase (38-126) U/L Creatine Kinase (30-135) U/L Troponin I < 0.012 (0.000-0.034) ng/mL NT-Pro-B Natriuret Pep (0-1800) pg/mL Serum Total Protein (6.3-8.2) g/dL Albumin (3.5-5.0) g/dL Amylase (30-110) U/L Lipase (23-300) U/L - Progress Progress: improved, re-examined Air Movement: good Progress Note: 04/19/19 13:45 Patient's chest pressure is improved, down to a 2-3/10, but she has a mild headache from the SL nitroglycerin 04/19/19 13:[address] Jin, patient's physician/hospitalist. With patient 's negative troponin, normal EKG, and findings on chest x-ray with enlarging hiatal hernia, Dr. Jin recommends the patient be discharged home with a PPI and does not need admitted at this time for further cardiac evaluation or immediate endoscopy or meets any other inpatient admission criteria at this time. Blood Culture(s) Obtained: No Antibiotics given: No Discussed with : Roderick Will see patient in: office Counseled pt/family regarding: lab results, diagnosis, need for follow-up, rad results - Departure Departure Disposition: Home, Extended Care Facility Clinical Impression: Chest pressure, Hiatal hernia, Elevated blood pressure reading without diagnosis of hypertension Condition: Good Critical Care Time: No Referrals: TYREL JIN MD [Primary Care Provider] - Instructions: DASH Diet, Hernia Repair (DC), Chest Pain (DC) Additional Instructions: return immediately back to the emergency room if any worse at any time including any recurrent or worsening chest pain, any shortness of breath, new or worsening abdominal pain, back pain, and any other concerning signs or symptoms that were not present at the emergency department today for immediate evaluation. Prescriptions: Omeprazole 40 mg PO BID #10 capsule.
[2019-04-19] MEDS ORDERED: BABY ASPIRIN 81 MG CHEW ONE (12:22)
[2019-04-19] MEDS ORDERED: Sodium Chloride 0.9% 1000 ML 1,000 ML ONE (12:22)
[2019-04-19 12:23] LABS: BASOPHIL % 0.6 % (0.0-0.4); Basophil (Absolute #) 0.03 (0-0.4); Eosinophil % 2.9 % (0.00-5.0); Eosinophil (Absolute #) 0.14 (0-0.5); Granulocyte Absolute (ANC) 2.92 (1.4-6.9); Granulocytes % 60.1 % (36.0-66.0); Hematocrit 35.7 % (35-47); Hemoglobin 11.3 gm/dl (12.0-16.0); Lymphocyte (Absolute #) 1.23 (1.0-4.6); Lymphocytes % 25.3 % (24.0-44.0); Mean Cell Volume 104.4 fl (78-100); Mean Corpuscular Hgb Concent. 31.7 g/dl (32-36); Monocyte (Absolute #) 0.54 (0.0-1.3); Monocytes % 11.1 % (0.0-12.0); Platelet Count 159 K/mm3 (150-450); Red Blood Count 3.42 M/mm3 (4.1-5.4); Red Cell Distribution Width 13.6 % (11.5-14.0); White Blood Count 4.9 K/mm3 (4.0-10.5)
[2019-04-19 12:29] LABS: PROTIME 11.3 SECONDS (9.95-12.35)
[2019-04-19 12:32] LABS: PTT 28.2 SECONDS (25.3-37.0)
[2019-04-19 12:44] LABS: ALBUMIN 3.8 g/dL (3.5-5.0); BILIRUBIN,TOTAL 0.4 mg/dL (0.2-1.3); Calcium 9.4 mg/dL (8.4-10.2); Creatinine 1 1.16 mg/dL (0.52-1.04); MAGNESIUM 1.7 mg/dL (1.6-2.3); Potassium 4.2 mmol/L (3.5-5.1); Total Protein 7.6 g/dL (6.3-8.2)
[2019-04-19 13:57] LABS: AMYLASE 51 U/L (30-110); LIPASE 77 U/L (23-300)
[2019-04-19 14:07] VITALS: BP 125/66; PULSE 57
[2019-04-19 14:08] VITALS: O2SAT 94
== END 2019-04-19 14:18 | disposition home or self-care (01) ==
LOC: ED 11:39
DX: R07.89 Other chest pain (principal); K44.9 Diaphragmatic hernia without obstruction or gangrene; R03.0 Elevated blood-pressure reading, without diagnosis of hypertension; I10 Essential (primary) hypertension
CPT/HCPCS: 36000; 36415; 71045; 80053; 82150; 82550; 83690; 83735; 83880; 84484; 85025; 85610; 85730; 93005; 93041; 94760; 96360; 96361; 96374; 96375; 99284; A9270-GY

== ENCOUNTER 2020-09-06 23:11 | Emergency (ER) | payer MEDICARE ==
--- NOTE | 2020-09-06 23:36 | ERPHSYRPT ---
- History of Present Illness Time Seen by Provider: 09/06/20 23:20 Source: patient Exam Limitations: no limitations Physician History: Patient is a 80-year-old female with history of rheumatoid arthritis who presents with right ankle pain. Onset was last night. Patient denies any injury or trauma. No history of same. Patient does get pretty severe pain on her hands from her rheumatoid arthritis and had to be seen in the ER here in the past. No history of blood clots. No history of gout. Patient currently denies fever or any other issues. Patient has chronic calf pain due to bilateral knee replacements. Patient also complains of swelling as well. Especially on the right. Method of Injury: unknown Occurred: yesterday Quality: constant, aching, throbbing Severity of Pain-Max: mild Severity of Pain-Current: moderate Lower Extremities Pain: ankle: right Modifying Factors: Improves With: movement Allergies/Adverse Reactions: Penicillins Allergy (Mild, Verified 09/06/20 23:20) rash ibuprofen [From Motrin] Allergy (Unknown, Verified 09/06/20 23:20) Swelling high doses only soy Allergy (Unknown, Verified 09/06/20 23:20) Swelling swell to the point of suffocation aspirin Adverse Reaction (Verified 09/06/20 23:20) pt is on low dose and dose fine. Pt states she brakes out with regular dose asa Home Medications: Iron,Carbonyl [Iron Chews] 65 mg PO DAILY 09/25/14 [History] Multivitamin [Multivitamins] 1 cap PO DAILY 09/25/14 [History] Omeprazole 40 mg PO DAILY 09/25/14 [History] Potassium 99 mg PO DAILY PRN PRN 09/25/14 [History] Torsemide [Demadex] 20 mg PO DAILY PRN PRN 09/25/14 [History] Alendronate Sodium 70 mg [Fosamax 70 MG] 70 mg PO WEEKLY 03/06/15 [History] Folic Acid 1 mg PO DAILY 03/06/15 [History] Losartan Potassium 50 mg PO BID 03/06/15 [History] Metoprolol Tartrate 50 mg [Lopressor 50 MG] 100 mg PO BID 01/17/16 [History] hydroCHLOROthiazide [Hydrochlorothiazide] 1 tab PO DAILY 09/06/20 [History] Hx Tetanus, Diphtheria Vaccination/Date Given: No Hx Influenza Vaccination/Date Given: Yes Hx Pneumococcal Vaccination/Date Given: Yes - Review of Systems Constitutional: No Fever, No Chills Eyes: No Symptoms Ears, Nose, & Throat: No Symptoms Respiratory: No Cough, No Dyspnea Cardiac: Edema, No Chest Pain, No Syncope Abdominal/Gastrointestinal: No Abdominal Pain, No Nausea, No Vomiting, No Diarrhea Genitourinary Symptoms: No Dysuria Musculoskeletal: Arthralgias, Joint Swelling, No Back Pain, No Neck Pain Skin: No Rash Neurological: No Dizziness, No Focal Weakness, No Sensory Changes Psychological: No Symptoms Endocrine: No Symptoms All Other Systems: Reviewed and Negative - Past Medical History Pertinent Past Medical History: Yes Neurological History: No Pertinent History ENT History: Cataracts Cardiac History: No Pertinent History Respiratory History: COPD Endocrine Medical History: No Pertinent History Musculoskeletal History: Osteoarthritis, Rheumatoid Arthritis, Other GI Medical History: GERD, Hemorrhoids, Polyps History: No Pertinent History Psycho-Social History: No Pertinent History Female Reproductive Disorders: No Pertinent History Other Medical History: RA diagnosis 2014, goes for infusion every 8 weeks. - Past Surgical History Past Surgical History: Yes Neuro Surgical History: No Pertinent History Cardiac: Cardiac Catheterization Respiratory: Lobectomy Gastrointestinal: Appendectomy Genitourinary: No Pertinent History Musculoskeletal: Orthopedic Surgery Female Surgical History: Hysterectomy Other Surgical History: ZAHIDA KNEE REPLACEMENTS, knee scopes x4, carpel tunnel x2 - Social History Smoking Status: Former smoker How long have you smoked: 1 year Exposure to second hand smoke: Yes Drug Use: none Patient Lives Alone: No - Nursing Vital Signs Nursing Vital Signs: Initial Vital Signs Temperature 98.9 F 09/06/20 23:12 Pulse Rate 91 H 09/06/20 23:12 Respiratory Rate 20 09/06/20 23:12 Blood Pressure 149/73 09/06/20 23:12 O2 Sat by Pulse Oximetry 96 09/06/20 23:12 Pain Scale Pain Intensity 5 - Physical Exam General Appearance: alert Eyes, Ears, Nose, Throat Exam: moist mucous membranes Neck Exam: non-tender, supple Cardiovascular/Respiratory Exam: chest non-tender, normal breath sounds, regular rate/rhythm, no respiratory distress Gastrointestinal/Abdominal Exam: non-tender, guarding Back Exam: normal inspection, No vertebral tenderness Hips Exam: bilateral: non-tender, normal inspection, normal range of motion, no evidence of injury Legs Exam: right leg: swelling, left leg: soft tissue tenderness, bilateral leg: no evidence of injury Knees Exam: bilateral knee: normal inspection, normal range of motion, no evidence of injury Ankle Exam: right ankle: no evidence of injury, pain, swelling Foot Exam: bilateral foot: non-tender, normal inspection, normal range of motion, no evidence of injury Neuro/Tendon Exam: normal sensation, normal motor functions Mental Status Exam: alert, oriented x 3, cooperative Skin Exam: normal color, warm, dry SpO2 Interpretation: normal - Course Nursing assessment & vital signs reviewed: Yes - Radiology Exams Right Ankle X-ray Interpretation: Interpreted by me, Negative, No Fracture - Radiology Ultrasound Exam Right Venous Lower Extremity Ultrasound: Other (US tech with neg prelim report) Ordered Tests: Active Orders 24 hr Category Date Time Status IV Insertion STAT Care 09/06/20 23:26 Active ANKLE (3 VIEWS) Stat Exams 09/06/20 23:26 Taken VENOUS UNILAT/LIMITED EXTREMIT [US] Stat Exams 09/07/20 00:04 Taken CBC W DIFF Stat Lab 09/06/20 23:43 Completed CMP Stat Lab 09/06/20 23:43 Completed D-DIMER QUANTITATIVE Stat Lab 09/06/20 23:43 Completed ESR [Erythrocyte Sedimentation Rate] Stat Lab 09/06/20 23:43 Completed PROTIME WITH INR Stat Lab 09/07/20 00:00 Completed PTT Stat Lab 09/07/20 00:00 Completed Uric Acid Stat Lab 09/06/20 23:43 Completed Medication Summary Discontinued Medications Generic Name Dose Route Start Last Admin Trade Name Kennedyq PRN Reason Stop Dose Admin Dexamethasone Sodium Phosphate 10 mg 09/07/20 00:43 09/07/20 01:05 Decadron 10mg Inj. IV 09/07/20 00:44 10 mg STAT ONE Administration Dexamethasone Sodium Phosphate Confirm 09/07/20 01:04 Decadron 10mg Inj. Administered 09/07/20 01:05 Dose 10 mg .ROUTE .STK-MED ONE Morphine Sulfate 2 mg 09/06/20 23:28 09/06/20 23:48 Morphine Sulfate 2 Mg Inj IV 09/06/20 23:29 2 mg STAT ONE Administration Morphine Sulfate Confirm 09/06/20 23:45 Morphine Sulfate 2 Mg Inj Administered 09/06/20 23:46 Dose 2 mg .ROUTE .STK-MED ONE Ondansetron HCl 4 mg 09/06/20 23:44 09/06/20 23:48 Zofran 4 Mg/2 Ml Vial IV 09/06/20 23:45 4 mg STAT ONE Administration Ondansetron HCl Confirm 09/06/20 23:45 Zofran 4 Mg/2 Ml Vial Administered 09/06/20 23:46 Dose 4 mg .ROUTE .STK-MED ONE Oxycodone/Acetaminophen 1 tab 09/07/20 00:42 09/07/20 01:05 Percocet Tablet 5/325mg PO 09/07/20 00:43 1 tab STAT STA Administration Oxycodone/Acetaminophen Confirm 09/07/20 01:04 Percocet Tablet 5/325mg Administered 09/07/20 01:05 Dose 1 tab .ROUTE .STK-MED ONE Lab/Rad Data: Laboratory Result Diagrams 09/06/20 23:43 09/06/20 23:43 Laboratory Results 09/07/20 09/06/20 09/06/20 Range/Units 00:00 23:43 23:43 WBC (4.0-10.5) K/mm3 RBC (4.1-5.4) M/mm3 Hgb (12.0-16.0) gm/dl Hct (35-47) % MCV (78-100) fl MCH (26-32) pg MCHC (32-36) g/dl RDW (11.5-14.0) % Plt Count (150-450) K/mm3 MPV (7.5-11.0) fl Gran % (36.0-66.0) % Eos # (Auto) (0-0.5) Absolute Lymphs (auto) (1.0-4.6) Absolute Monos (auto) (0.0-1.3) Lymphocytes % (24.0-44.0) % Monocytes % (0.0-12.0) % Eosinophils % (0.00-5.0) % Basophils % (0.0-0.4) % Absolute Granulocytes (1.4-6.9) Basophils # (0-0.4) ESR (0-20) mm/hr PT 11.9 (9.95-12.35) SECONDS INR 1.05 (0.8-3.0) APTT 26.5 (25.3-37.0) SECONDS D-Dimer 1643 H* (215-500) ng/mL Sodium 136 L (137-145) mmol/L Potassium 4.6 (3.5-5.1) mmol/L Chloride 101 (98-107) mmol/L Carbon Dioxide 28 (22-30) mmol/L Anion Gap 10.8 (5-15) MEQ/L BUN 28 H (7-17) mg/dL Creatinine 1.44 H (0.52-1.04) mg/dL Estimated GFR 37.4 ML/MIN Glucose 131 H (74-106) mg/dL Uric Acid 6.2 H (2.6-6.0) mg/dL Calcium 9.3 (8.4-10.2) mg/dL Total Bilirubin 0.60 (0.2-1.3) mg/dL AST 21 (14-36) U/L ALT 19 (0-35) U/L Alkaline Phosphatase 61 (38-126) U/L Serum Total Protein 8.1 (6.3-8.2) g/dL Albumin 3.9 (3.5-5.0) g/dL 09/06/20 Range/Units 23:43 WBC 9.3 (4.0-10.5) K/mm3 RBC 3.50 L (4.1-5.4) M/mm3 Hgb 11.0 L (12.0-16.0) gm/dl Hct 35.3 (35-47) % MCV 100.9 H (78-100) fl MCH 31.4 (26-32) pg MCHC 31.2 L (32-36) g/dl RDW 13.0 (11.5-14.0) % Plt Count 173 (150-450) K/mm3 MPV 9.3 (7.5-11.0) fl Gran % 62.1 (36.0-66.0) % Eos # (Auto) 0.14 (0-0.5) Absolute Lymphs (auto) 2.05 (1.0-4.6) Absolute Monos (auto) 1.30 (0.0-1.3) Lymphocytes % 22.0 L (24.0-44.0) % Monocytes % 14.0 H (0.0-12.0) % Eosinophils % 1.5 (0.00-5.0) % Basophils % 0.4 (0.0-0.4) % Absolute Granulocytes 5.78 (1.4-6.9) Basophils # 0.04 (0-0.4) ESR 83 H (0-20) mm/hr PT (9.95-12.35) SECONDS INR (0.8-3.0) APTT (25.3-37.0) SECONDS D-Dimer (215-500) ng/mL Sodium (137-145) mmol/L Potassium (3.5-5.1) mmol/L Chloride (98-107) mmol/L Carbon Dioxide (22-30) mmol/L Anion Gap (5-15) MEQ/L BUN (7-17) mg/dL Creatinine (0.52-1.04) mg/dL Estimated GFR ML/MIN Glucose (74-106) mg/dL Uric Acid (2.6-6.0) mg/dL Calcium (8.4-10.2) mg/dL Total Bilirubin (0.2-1.3) mg/dL AST (14-36) U/L ALT (0-35) U/L Alkaline Phosphatase (38-126) U/L Serum Total Protein (6.3-8.2) g/dL Albumin (3.5-5.0) g/dL - Progress Progress: improved Progress Note: 09/07/20 02:19 Pt better with meds. Ankle XR, uric acid, D-dimer, labs. XR neg, uric acid slightly positive, D-dimer very positive. LE venous doppler neg for DVT. no SOB, hypoxia, tachycardia, coughs, h emoptysis, CP. Do not suspect PE. Will treat as gout. Can't use colchicine due to renal impairment. DC with steroids and pain meds. Follow up recommended with PCP. Counseled pt/family regarding: lab results, diagnosis, need for follow-up, rad results - Departure Departure Disposition: Home Clinical Impression: Acute gout of ankle, Renal failure, Elevated d-dimer Condition: Stable Critical Care Time: No Referrals: TYREL JIN MD [Primary Care Provider] - Instructions: Gout (DC) Additional Instructions: Monitor symptoms closely. Take meds as prescribed. May be due to your water pills. Minimize intake of red meat and alcohol. Follow up with your PCP for recheck. Return to ER if worse. Prescriptions: Oxycodone HCl/Acetaminophen [Percocet 5-325 mg Tablet] 1 each PO Q6H PRN PRN #12 tablet MDD 20mg PRN Reason: Pain Prednisone 20 mg [Deltasone 20 mg] 40 mg PO DAILY 5 Days #10 tablet
[2020-09-06] MEDS ORDERED: Zofran 4 MG/2 ML VIAL ONE (23:45)
[2020-09-06] MEDS ORDERED: MORPHINE SULFATE 2 MG INJ ONE (23:45)
[2020-09-06 23:47] LABS: Absolute Neutrophil Ct (ANC) 5.78 (1.4-6.9); BASOPHIL % 0.4 % (0.0-0.4); Basophil (Absolute #) 0.04 (0-0.4); Eosinophil % 1.5 % (0.00-5.0); Eosinophil (Absolute #) 0.14 (0-0.5); Hematocrit 35.3 % (35-47); Lymphocyte (Absolute #) 2.05 (1.0-4.6); Mean Cell Volume 100.9 fl (78-100); Mean Corpuscular Hemoglobin 31.4 pg (26-32); Mean Corpuscular Hgb Concent. 31.2 g/dl (32-36); Mean Platelet Volume 9.3 fl (7.5-11.0); Neutrophil % 62.1 % (36.0-66.0); Platelet Count 173 K/mm3 (150-450); White Blood Count 9.3 K/mm3 (4.0-10.5)
[2020-09-06] MEDS: Zofran 4 MG/2 ML VIAL IV ONE (23:48)
[2020-09-06] MEDS: MORPHINE SULFATE 2 MG INJ IV ONE (23:48)
[2020-09-06 23:59] LABS: ALBUMIN 3.9 g/dL (3.5-5.0); ANION GAP 10.8 MEQ/L (5-15); BILIRUBIN,TOTAL 0.6 mg/dL (0.2-1.3); Calcium 9.3 mg/dL (8.4-10.2); Creatinine 1 1.44 mg/dL (0.52-1.04); EST GLOMERULAR FILTRATION RATE 37.4 ML/MIN; Potassium 4.6 mmol/L (3.5-5.1); Total Protein 8.1 g/dL (6.3-8.2); Uric Acid 6.2 mg/dL (2.6-6.0)
[2020-09-07 00:12] LABS: Erythrocyte Sedimentation Rate 83 mm/hr (0-20)
[2020-09-07] MEDS ORDERED: DECADRON 10MG INJ. ONE (01:04)
[2020-09-07] MEDS ORDERED: PERCOCET TABLET 5/325MG ONE (01:04)
[2020-09-07] MEDS: PERCOCET TABLET 5/325MG PO STA (01:05)
[2020-09-07] MEDS: DECADRON 10MG INJ. IV ONE (01:05)
[2020-09-07 01:10] LABS: INR 1.05 (0.8-3.0); PROTIME 11.9 SECONDS (9.95-12.35)
[2020-09-07 01:12] LABS: PTT 26.5 SECONDS (25.3-37.0)
[2020-09-07 02:11] VITALS: BP 142/58; PULSE 89; O2SAT 99
--- NOTE | 2020-09-07 07:47 | XRAY ---
Indication: Pain right ankle pain and swelling. 2-dimensional sonogram and color Doppler imaging of the major venous vessels of the right leg was performed. Comparison: None No thrombus seen in the examined deep vessels of the right leg including greater saphenous vein. Veins demonstrate normal compressibility. Venous waveforms are normal with and without augmentation. Impression: Right leg negative for DVT. Comment: Preliminary report was given.
--- NOTE | 2020-09-07 07:52 | XRAY ---
Indication: Pain and swelling. No known injury. Comparison: January 19, 2016. 3 view right ankle again demonstrates mild soft tissue swelling, osteopenia, moderate midfoot degenerative changes, small plantar heel spur, faint calcifications Achilles tendon/plantar aponeurosis, and cuboid accessory ossicle. No new/acute bony, articular, or soft tissue abnormalities.
== END 2020-09-07 02:30 | disposition home or self-care (01) ==
LOC: ED 23:11
DX: M10.9 Gout, unspecified (principal); N19 Unspecified kidney failure; R79.1 Abnormal coagulation profile; M79.661 Pain in right lower leg
CPT/HCPCS: 36000; 36415; 73610; 80053; 84550; 85025; 85379; 85610; 85652; 85730; 93971; 96374; 96375; 99284; J1100; J2270; J2405; A9270-GY

== ENCOUNTER 2022-01-16 07:15 | Observation (INO) | payer MEDICARE ==
[2022-01-16] MEDS ORDERED: MORPHINE SULFATE 2 MG INJ IV ONE (07:25)
[2022-01-16] MEDS ORDERED: NITRO-BID 2% UD PACKETS TOP ONE (07:25)
[2022-01-16] MEDS ORDERED: Zofran 4 MG/2 ML VIAL IV ONE (07:25)
--- NOTE | 2022-01-16 07:30 | ERPHSYRPT ---
- History of Present Illness Time Seen by Provider: 01/16/22 07:25 Historian: patient Exam Limitations: no limitations Patient Subjective Stated Complaint: PT HERE FOR CHEST PAIN THAT WOKE HER UP AT 0500 TODAY, SHEWAS GIVEN ASA AT HOME, CO INCREASE SOB BUT STATES SHE IS NOMRALLY SOB AT TIMES, HAS INCREASE SWELLING TO LOWER LEGS Triage Nursing Assessment: PT ALERT, RESP LABORED AT TIMES, FACE MASK IN PLACE, CHEST CLEAR, ABD SOFT, HAS SWELLING TO LOWER LEGS , Physician History: 81-year-old female with a history of hypertension, hyperlipidemia, congestive heart failure presented in the ER with sudden onset substernal chest pressure or fullness waking her up from sleep around 5 AM. Patient described this initially 8/10 intensity, without radiation, was given 4 baby aspirin and started to improve and currently 4/10. Does have shortness of breath at her baseline off and on which is not any worse than usual. Denies palpitations. Denies fever chills or cough. No known sick contact. Per patient she had a cardiac work-up done in 2019 which was negative. She does have increased bilateral lower extremity swelling lately without any pain. Timing/Duration: hour(s) (2), constant, sudden, improved Activities at Onset: rest, sleep Quality: fullness, pressure Location: substernal Chest Pain Radiation: no radiation Severity of Pain-Max: severe Severity of Pain-Current: moderate Modifying Factors: Improves With: aspirin Associated Symptoms: denies symptoms Nitro Today/Relief: no nitro taken today Aspirin Treatment Today: 81 mg x 4 Allergies/Adverse Reactions: Penicillins Allergy (Mild, Verified 01/16/22 07:24) rash ibuprofen [From Motrin] Allergy (Unknown, Verified 01/16/22 07:24) Swelling high doses only soy Allergy (Unknown, Verified 01/16/22 07:24) Swelling swell to the point of suffocation aspirin Adverse Reaction (Verified 01/16/22 07:24) pt is on low dose and dose fine. Pt states she brakes out with regular dose asa Home Medications: Iron,Carbonyl [Iron Chews] 65 mg PO DAILY 09/25/14 [History] Multivitamin [Multivitamins] 1 cap PO DAILY 09/25/14 [History] Potassium 99 mg PO DAILY PRN PRN 09/25/14 [History] Torsemide [Demadex] 20 mg PO DAILY PRN PRN 09/25/14 [History] Folic Acid 1 mg PO DAILY 03/06/15 [History] Losartan Potassium 50 mg PO BID 03/06/15 [History] Metoprolol Tartrate 50 mg [Lopressor 50 MG] 100 mg PO BID 01/17/16 [History] hydroCHLOROthiazide [Hydrochlorothiazide] 1 tab PO DAILY 09/06/20 [History] Mecobalamin [B12 Active] 500 mg DAILY 01/16/22 [History] Hx Tetanus, Diphtheria Vaccination/Date Given: No Hx Influenza Vaccination/Date Given: Yes Hx Pneumococcal Vaccination/Date Given: Yes Immunizations Up to Date: Yes Travel Risk - International Travel Have you traveled outside of the country in past 3 weeks: No - Coronavirus Screening Are you exhibiting any of the following symptoms?: No Close contact with a COVID-19 positive Pt in past 14-21 Days: No - Vaccine Status Have you recieved a Covid-19 vaccination: Yes 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: [employer] - Vaccination Dates Date of 2cond Vaccination (if applicable): 2020 - Review of Systems Constitutional: No Symptoms Eyes: No Symptoms Ears, Nose, & Throat: No Symptoms Respiratory: No Symptoms Cardiac: Chest Pain, Edema Abdominal/Gastrointestinal: No Symptoms Genitourinary Symptoms: No Symptoms Musculoskeletal: No Symptoms Skin: No Symptoms Neurological: No Symptoms Psychological: No Symptoms Endocrine: No Symptoms Hematologic/Lymphatic: No Symptoms Immunological/Allergic: No Symptoms - Past Medical History Pertinent Past Medical History: Yes Neurological History: No Pertinent History ENT History: Cataracts Cardiac History: No Pertinent History Respiratory History: COPD Endocrine Medical History: No Pertinent History Musculoskeletal History: Osteoarthritis, Rheumatoid Arthritis, Other GI Medical History: GERD, Hemorrhoids, Polyps History: No Pertinent History Psycho-Social History: No Pertinent History Female Reproductive Disorders: No Pertinent History Other Medical History: RA diagnosis 2014, goes for infusion every 8 weeks. - Past Surgical History Past Surgical History: Yes Neuro Surgical History: No Pertinent History Cardiac: Cardiac Catheterization Respiratory: Lobectomy Gastrointestinal: Appendectomy Genitourinary: No Pertinent History Musculoskeletal: Orthopedic Surgery Female Surgical History: Hysterectomy Other Surgical History: ZAHIDA KNEE REPLACEMENTS, knee scopes x4, carpel tunnel x2 - Social History Smoking Status: Former smoker How long have you smoked: 1 year Exposure to second hand smoke: Yes Drug Use: none Patient Lives Alone: No - Nursing Vital Signs Nursing Vital Signs: Initial Vital Signs Temperature 97.2 F 01/16/22 07:15 Pulse Rate 83 01/16/22 07:15 Respiratory Rate 20 01/16/22 07:15 Blood Pressure 141/87 01/16/22 07:15 O2 Sat by Pulse Oximetry 94 L 01/16/22 07:15 Pain Scale Pain Intensity 2 - Physical Exam General Appearance: no apparent distress, alert Eye Exam: PERRL/EOMI Ears, Nose, Throat Exam: normal ENT inspection Neck Exam: normal inspection, supple, full range of motion Respiratory Exam: normal breath sounds, lungs clear Cardiovascular Exam: regular rate/rhythm, normal heart sounds Gastrointestinal/Abdomen Exam: soft, No tenderness Back Exam: normal inspection, normal range of motion Extremity Exam: normal inspection, normal range of motion Neurologic Exam: alert, oriented x 3, cooperative Skin Exam: normal color SpO2 Interpretation: normal SpO2: 94 O2 Delivery: Room Air - Course EKG Interpreted by Me: RATE (77), Sinus Rhythm, NORMAL AXIS, NORMAL INTERVALS, NORMAL QRS Ordered Tests: Active Orders 24 hr Category Date Time Status Fish Butcher STAT Care 01/16/22 07:26 Active EKG-ER Only STAT Care 01/16/22 07:25 Active IV Insertion STAT Care 01/16/22 07:25 Active CHEST 1 VIEW (PORTABLE) Stat Exams 01/16/22 07:26 Completed CBC W DIFF Stat Lab 01/16/22 07:30 Completed CK-Creatinine Phosphokinase Stat Lab 01/16/22 07:30 Completed CMP Stat Lab 01/16/22 07:30 Completed NT PRO BNP Stat Lab 01/16/22 07:30 Completed TROPONIN Q3H Lab 01/16/22 07:30 Completed TROPONIN Q3H Lab 01/16/22 10:30 Ordered TROPONIN Q3H Lab 01/16/22 13:30 Ordered TROPONIN Q3H Lab 01/16/22 16:30 Ordered TROPONIN Q3H Lab 01/16/22 19:30 Ordered Transfer Order Routine Transfer 01/16/22 Ordered Medication Summary Discontinued Medications Generic Name Dose Route Start Last Admin Trade Name Freq PRN Reason Stop Dose Admin Morphine Sulfate 2 mg 01/16/22 07:25 01/16/22 07:36 Morphine Sulfate 2 Mg/Ml Inj IV 01/16/22 07:26 2 mg STAT ONE Administration Morphine Sulfate Confirm 01/16/22 07:34 Morphine Sulfate 2 Mg/Ml Inj Administered 01/16/22 07:35 Dose 2 mg .ROUTE .STK-MED ONE Nitroglycerin 0.5 gm 01/16/22 07:25 01/16/22 07:40 Nitroglycerin 1 Gm Packet TOP 01/16/22 07:26 0.5 gm STAT ONE Administration Nitroglycerin Confirm 01/16/22 07:33 Nitroglycerin 1 Gm Packet Administered 01/16/22 07:34 Dose 1 gm .ROUTE .STK-MED ONE Ondansetron HCl 4 mg 01/16/22 07:25 01/16/22 07:35 Ondansetron Hcl 4 Mg/2 Ml Vial IV 01/16/22 07:26 4 mg STAT ONE Administration Ondansetron HCl Confirm 01/16/22 07:33 Ondansetron Hcl 4 Mg/2 Ml Vial Administered 01/16/22 07:34 Dose 4 mg .ROUTE .STK-MED ONE Lab/Rad Data: Laboratory Result Diagrams 01/16/22 07:30 01/16/22 07:30 Laboratory Results 01/16/22 01/16/22 01/16/22 Range/Units 07:30 07:30 07:30 WBC 4.7 (4.0-10.5) x10^3/uL RBC 3.20 L (4.1-5.4) x10^6/uL Hgb 10.3 L (12.0-16.0) g/dL Hct 32.0 L (35-47) % MCV 100.0 (78-100) fL MCH 32.2 H (26-32) pg MCHC 32.2 (32-36) g/dL RDW 13.3 (11.5-14.0) % Plt Count 156 (150-450) x10^3/uL MPV 9.9 (7.5-11.0) fL Gran % 34.2 L (36.0-66.0) % Immature Gran % (Auto) 0.0 (0.00-0.4) % Nucleat RBC Rel Count 0.0 (0.00-0.1) % Eos # (Auto) 0.22 (0-0.5) x10^3/uL Immature Gran # (Auto) 0.00 (0.00-0.03) x10^3u/L Absolute Lymphs (auto) 2.28 (1.0-4.6) x10^3/uL Absolute Monos (auto) 0.57 (0.0-1.3) x10^3/uL Absolute Nucleated RBC 0.00 (0.00-0.01) x10^3u/L Lymphocytes % 48.4 H (24.0-44.0) % Monocytes % 12.1 H (0.0-12.0) % Eosinophils % 4.7 (0.00-5.0) % Basophils % 0.6 (0.0-0.4) % Absolute Granulocytes 1.61 (1.4-6.9) x10^3/uL Basophils # 0.03 (0-0.4) x10^3/uL Sodium 139 (137-145) mmol/L Potassium 4.4 (3.5-5.1) mmol/L Chloride 103 (98-107) mmol/L Carbon Dioxide 26 (22-30) mmol/L Anion Gap 14.4 (5-15) MEQ/L BUN 33 H (7-17) mg/dL Creatinine 1.40 H (0.52-1.04) mg/dL Estimated GFR 38.6 ML/MIN Glucose 100 (74-106) mg/dL Calcium 9.3 (8.4-10.2) mg/dL Total Bilirubin 0.40 (0.2-1.3) mg/dL AST 25 (14-36) U/L ALT 18 (0-35) U/L Alkaline Phosphatase 57 (38-126) U/L Creatine Kinase 46 (30-135) U/L Troponin I < 0.012 (0.000-0.034) ng/mL NT-Pro-B Natriuret Pep 490 (0-1800) pg/mL Serum Total Protein 8.1 (6.3-8.2) g/dL Albumin 3.9 (3.5-5.0) g/dL - Progress Progress: improved Air Movement: fair Progress Note: 01/16/22 09:01 81-year-old is evaluated for chest pain. EKG showed sinus rhythm without any ST elevations. Negative initial troponins, chest x-ray no acute cardiopulmonary findings. She has full dose aspirin prior to arrival. She is given 2 mg IV morphine along with Nitropaste, on reevaluation is pressure in the chest is much improved. Does have multiple risk factors for CAD and a heart score of 4, discussed with Dr. Estrada and patient is being admitted Blood Culture(s) Obtained: No Antibiotics given: No Discussed with : Roderick Will see patient in: hospital (observation) Counseled pt/family regarding: lab results, diagnosis, rad results - Departure Departure Disposition: Observation Clinical Impression: Chest pain, rule out acute myocardial infarction Condition: Stable Critical Care Time: No Referrals: MARY ALICE VIZCAINO FNP [Primary Care Provider] - Follow up/PCP as directed
[2022-01-16] MEDS ORDERED: NITRO-BID 2% UD PACKETS ONE (07:33)
[2022-01-16] MEDS ORDERED: Zofran 4 MG/2 ML VIAL ONE (07:33)
[2022-01-16] MEDS ORDERED: MORPHINE SULFATE 2 MG INJ ONE (07:34)
[2022-01-16 07:41] LABS: Absolute Neutrophil Ct (ANC) 1.61 x10^3/uL (1.4-6.9); Basophil (Absolute #) 0.03 x10^3/uL (0-0.4); Eosinophil % 4.7 % (0.00-5.0); Eosinophil (Absolute #) 0.22 x10^3/uL (0-0.5); Hemoglobin 10.3 g/dL (12.0-16.0); Lymphocyte (Absolute #) 2.28 x10^3/uL (1.0-4.6); Lymphocytes % 48.4 % (24.0-44.0); Mean Corpuscular Hemoglobin 32.2 pg (26-32); Mean Corpuscular Hgb Concent. 32.2 g/dL (32-36); Mean Platelet Volume 9.9 fL (7.5-11.0); Monocyte (Absolute #) 0.57 x10^3/uL (0.0-1.3); Monocytes % 12.1 % (0.0-12.0); Neutrophil % 34.2 % (36.0-66.0); Platelet Count 156 x10^3/uL (150-450); Red Cell Distribution Width 13.3 % (11.5-14.0); White Blood Count 4.7 x10^3/uL (4.0-10.5)
[2022-01-16 08:01] LABS: ALBUMIN 3.9 g/dL (3.5-5.0); ANION GAP 14.4 MEQ/L (5-15); BILIRUBIN,TOTAL 0.4 mg/dL (0.2-1.3); Calcium 9.3 mg/dL (8.4-10.2); Creatinine 1 1.4 mg/dL (0.52-1.04); EST GLOMERULAR FILTRATION RATE 38.6 ML/MIN; Potassium 4.4 mmol/L (3.5-5.1); Total Protein 8.1 g/dL (6.3-8.2)
--- NOTE | 2022-01-16 08:33 | XRAY ---
Indication: Chest pain. Comparison: January 01, 2021. Portable apical lordotic chest again hyperinflated with scattered fibrosis/scarring. No focal infiltrate, consolidation, or large effusion. Heart borderline enlarged again with large hiatal hernia. Bony thorax intact again with osteopenia and degenerative changes. Impression: Nonacute hyperinflated chest with chronic features.
[2022-01-16 09:30] LABS: INFLUENZA A NEGATIVE (NEGATIVE); INFLUENZA B NEGATIVE (NEGATIVE); RESPIRATORY SYNCTIAL VIRUS NEGATIVE (Negative); SARS-CoV-2 Xpert Express NEGATIVE (NEGATIVE)
[2022-01-16] MEDS ORDERED: DUONEB 0.5-3 MG/3 ml Neb IH PRN (10:15)
[2022-01-16] MEDS ORDERED: TYLENOL 325 MG PO PRN (10:15)
[2022-01-16] MEDS ORDERED: PROTONIX 40 MG IV IV SCH (10:15)
[2022-01-16] MEDS ORDERED: Zofran 4 MG/2 ML VIAL IV PRN (10:15)
[2022-01-16] MEDS ORDERED: MORPHINE SULFATE 2 MG INJ IV PRN (10:15)
[2022-01-16] MEDS: PROTONIX 40 MG IV IV SCH (12:40)
[2022-01-16] MEDS ORDERED: POTASSIUM GLUCONATE 600 MG PO SCH (13:15)
[2022-01-16] MEDS: NEURONTIN PO SCH ×2 (14:54→21:20)
[2022-01-16] MEDS: DEMADEX 20 MG PO SCH (14:54)
[2022-01-16] MEDS: hydroDIURIL 25 MG PO SCH (14:55)
[2022-01-16] MEDS: Cozaar 50 MG PO SCH ×2 (14:55→21:20)
[2022-01-16] MEDS ORDERED: VENTOLIN COMMON CANISTER IH PRN (15:00)
[2022-01-16] MEDS: NORCO 7.5/325 MG TAB PO PRN (15:00)
[2022-01-16] MEDS ORDERED: Neurontin PO SCH (15:00)
[2022-01-16] MEDS ORDERED: PROVENTIL 2.5 MG/3 ML NEB IH SCH (17:00)
[2022-01-16] MEDS: TYLENOL EXTRA STRENGTH 500 MG PO SCH (21:20)
[2022-01-16] MEDS: Lopressor 50 MG PO SCH (21:20)
[2022-01-16] MEDS ORDERED: NON-FORMULARY ITEM (Losartan Potassium [Losartan Potassium] 100 MG Tablet) PO SCH (22:00)
[2022-01-16] MEDS ORDERED: Singulair 10 MG PO SCH (22:00)
[2022-01-17] MEDS: NORCO 7.5/325 MG TAB PO PRN (06:02)
[2022-01-17 06:16] LABS: Basophil (Absolute #) 0.03 x10^3/uL (0-0.4); Eosinophil % 4.4 % (0.00-5.0); Eosinophil (Absolute #) 0.17 x10^3/uL (0-0.5); Hematocrit 33.5 % (35-47); Hemoglobin 10.8 g/dL (12.0-16.0); Lymphocyte (Absolute #) 1.47 x10^3/uL (1.0-4.6); Lymphocytes % 37.7 % (24.0-44.0); Mean Cell Volume 99.7 fL (78-100); Mean Corpuscular Hemoglobin 32.1 pg (26-32); Mean Corpuscular Hgb Concent. 32.2 g/dL (32-36); Mean Platelet Volume 9.8 fL (7.5-11.0); Monocyte (Absolute #) 0.62 x10^3/uL (0.0-1.3); Monocytes % 15.9 % (0.0-12.0); Neutrophil % 40.9 % (36.0-66.0); Platelet Count 181 x10^3/uL (150-450); Red Blood Count 3.36 x10^6/uL (4.1-5.4); Red Cell Distribution Width 13.6 % (11.5-14.0); White Blood Count 3.9 x10^3/uL (4.0-10.5)
[2022-01-17 06:29] LABS: ALBUMIN 3.9 g/dL (3.5-5.0); ANION GAP 11.2 MEQ/L (5-15); BILIRUBIN,TOTAL 0.6 mg/dL (0.2-1.3); Creatinine 1 1.37 mg/dL (0.52-1.04); EST GLOMERULAR FILTRATION RATE 39.5 ML/MIN; Potassium 4.3 mmol/L (3.5-5.1); Total Protein 8.5 g/dL (6.3-8.2)
[2022-01-17] MEDS: Lopressor 50 MG PO SCH (09:52)
[2022-01-17] MEDS: DEMADEX 20 MG PO SCH (09:53)
[2022-01-17] MEDS: Cozaar 50 MG PO SCH (09:53)
[2022-01-17] MEDS: hydroDIURIL 25 MG PO SCH (09:53)
[2022-01-17] MEDS: NEURONTIN PO SCH ×2 (09:53→15:46)
[2022-01-17] MEDS: TYLENOL EXTRA STRENGTH 500 MG PO SCH (09:53)
[2022-01-17] MEDS: PROTONIX 40 MG IV IV SCH (09:55)
[2022-01-17] MEDS ORDERED: NON-FORMULARY ITEM (Hydrochlorothiazide [Hydrochlorothiazide] 12.5 MG Tablet) PO SCH (10:00)
[2022-01-17] MEDS ORDERED: Klor Con PO SCH (10:00)
[2022-01-17 12:18] VITALS: BP 110/60; PULSE 65; O2SAT 95
--- NOTE | 2022-01-17 15:08 | PCM.SSS ---
History of Present Illness - Chief Complaint Chief Complaint: Chest pain rule out acute CO History of Present Illness: is a 81 year old female pt of Maki Goodson NP (out of Dr. Durand's office) with hx anemia, HTN, hyperlipidemia, CHF, RA, and partial R lung resection (d/t histoplasmosis) who was admitted through ER with chest pain to rule out CO. She has had herpes zoster on her L leg since 11/24/21 and she was having pain all night 2 nights ago. She woke at 5 am with L sided chest pain, 05/25, with L arm numbness and palpitations/pounding heart (no diaphoresis). She sat for a n hour but it didn't resolve - in fact she felt worse, as though her throat was closing off. Her daughter is a nurse and took her BP (180/102) and gave her 325mg ASA and took her to the ER. - Review of Systems Ears, Nose, & Throat: Throat Swelling Respiratory: Short Of Breath Cardiac: Chest Pain, Edema (increased bilat x 3-4 weeks. ), Palpitations Musculoskeletal: Other (L leg pain) Skin: Rash (Herpes zoster on L) All Other Systems: Reviewed and Negative Medications & Allergies Home Medications: Home Medication List Iron,Carbonyl [Iron Chews] 65 mg PO DAILY 09/25/14 [History Confirmed 01/16/22] Multivitamin [Multivitamins] 1 cap PO DAILY 09/25/14 [History Confirmed 01/16/22] Torsemide [Demadex] 20 mg PO UD PRN 09/25/14 [History Confirmed 01/16/22] Folic Acid 1 mg PO DAILY 03/06/15 [History Confirmed 01/16/22] Losartan Potassium 50 mg PO BID 03/06/15 [History Confirmed 01/16/22] Albuterol 2.5 mg/3 ml Neb [Proventil 2.5 mg/3 ml Neb] 2.5 mg IH QID #30 udcap 11/17/15 [Rx Confirmed 01/16/22] Metoprolol Tartrate 50 mg [Lopressor 50 MG] 100 mg PO BID 01/17/16 [Hist ory Confirmed 01/16/22] hydroCHLOROthiazide [Hydrochlorothiazide] 12.5 mg PO DAILY 09/06/20 [History Confirmed 01/16/22] Acetaminophen 500 mg [Tylenol Extra Strength 500 mg] 500 mg PO BID [History Confirmed 01/16/22] Cyclobenzaprine HCl 5 mg PO UD PRN 01/16/22 [History Confirmed 01/16/22] Gabapentin 300 mg PO TID 01/16/22 [History Confirmed 01/16/22] Hydrocodone/Acetaminophen [Hydrocodone-Acetamin 7.5-325] 1 each PO Q4H PRN PRN 01/16/22 [History Confirmed 01/16/22] Mecobalamin [B12 Active] 500 mg DAILY 01/16/22 [History Confirmed 01/16/22] Montelukast Sodium 10 mg [Singulair 10 MG] 10 mg PO QPM 01/16/22 [History Confirmed 01/16/22] Potassium Gluconate [Potassium] 595 mg PO UD 01/16/22 [History Confirmed 01/16/22] Prednisone 5 mg [Deltasone 5 mg] 5 mg PO UD 01/16/22 [History Confirmed 01/16/22] Allergies/Adverse Reactions: Allergies Allergy/AdvReac Type Severity Reaction Status Date / Time Penicillins Allergy Mild Verified 01/16/22 11:15 ibuprofen [From Motrin] Allergy Unknown Swelling Verified 01/16/22 07:24 soy Allergy Unknown Swelling Verified 01/16/22 07:24 aspirin AdvReac Verified 01/16/22 07:24 - Past Medical History Past Medical History: Yes Neurological History: No Pertinent History ENT History: Cataracts Cardiac History: No Pertinent History Respiratory History: COPD Endocrine Medical History: No Pertinent History Musculoskelatal History: Osteoarthritis, Osteoporosis, Rheumatoid Arthritis, Other GI Medical History: GERD, Hemorrhoids, Hernia, Polyps History: Other Pyscho-Social History: No Pertinent History Reproductive Disorders: No Pertinent History Comment: RA diagnosis 2014, goes for infusion every [address] Ulrich for "borderline" kidney disease , bladder infections, - Female History Are you now?: No - Past Surgical History Past Surgical History: Yes Neuro Surgical History: No Pertinent History Cardiac History: Cardiac Catheterization Respiratory Surgery: Lobectomy GI Surgical History: Appendectomy, Hernia Repair Genitourinary Surgical Hx: No Pertinent History Musculskeletal Surgical Hx: Orthopedic Surgery Female Surgical History: Hysterectomy Other Surgical History: ZAHIDA KNEE REPLACEMENTS, knee scopes x4, carpel tunnel x2 R hip replacement november 2020, - Social History Smoking Status: Former smoker How long have you smoked: 1 year Exposure to second hand smoke: Yes Alcohol: Rarely Drug Use: none - Physical Exam Vital Signs: Vital Signs - 24 hr Temp Pulse Resp BP Pulse Ox 01/17/22 12:00 97.1 F 65 18 110/60 95 01/17/22 08:03 96 01/17/22 08:00 98 F 77 21 123/67 96 01/17/22 04:05 97.9 F 76 20 130/62 98 01/16/22 23:27 97.7 F 88 24 131/59 94 L 01/16/22 19:17 97.0 F 92 H 18 106/55 94 L 01/16/22 18:17 93 L 01/16/22 15:51 97.5 F 91 H 20 117/66 91 L General Appearance: no apparent distress, alert Neurologic Exam: oriented x 3, cooperative Eye Exam: eyes nml inspection Ears, Nose, Throat Exam: moist mucous membranes Neck Exam: normal inspection, non-tender, No mass, No lymphadenopathy Respiratory Exam: normal breath sounds, lungs clear, No crackles/rales, No rhon chi, No wheezing Cardiovascular Exam: regular rate/rhythm, normal heart sounds, No murmur Gastrointestinal/Abdomen Exam: soft, normal bowel sounds, No tenderness, No distention, No mass, No guarding, No rebound Back Exam: normal inspection, No CVA tenderness, No rash Extremity Exam: swelling (trace pretibial edema bilat) Skin Exam: normal color, warm, dry, No rash Results - Labs Lab/Micro Results: Lab Results-Last 24 Hours 01/16/22 01/16/22 01/17/22 Range/Units 16:30 19:29 05:58 WBC 3.9 L (4.0-10.5) x10^3/uL RBC 3.36 L (4.1-5.4) x10^6/uL Hgb 10.8 L (12.0-16.0) g/dL Hct 33.5 L (35-47) % MCV 99.7 (78-100) fL MCH 32.1 H (26-32) pg MCHC 32.2 (32-36) g/dL RDW 13.6 (11.5-14.0) % Plt Count 181 (150-450) x10^3/uL MPV 9.8 (7.5-11.0) fL Gran % 40.9 (36.0-66.0) % Immature Gran % (Auto) 0.3 (0.00-0.4) % Nucleat RBC Rel Count 0.0 (0.00-0.1) % Eos # (Auto) 0.17 (0-0.5) x10^3/uL Immature Gran # (Auto) 0.01 (0.00-0.03) x10^3u/L Absolute Lymphs (auto) 1.47 (1.0-4.6) x10^3/uL Absolute Monos (auto) 0.62 (0.0-1.3) x10^3/uL Absolute Nucleated RBC 0.00 (0.00-0.01) x10^3u/L Lymphocytes % 37.7 (24.0-44.0) % Monocytes % 15.9 H (0.0-12.0) % Eosinophils % 4.4 (0.00-5.0) % Basophils % 0.8 (0.0-0.4) % Absolute Granulocytes 1.60 (1.4-6.9) x10^3/uL Basophils # 0.03 (0-0.4) x10^3/uL Sodium (137-145) mmol/L Potassium (3.5-5.1) mmol/L Chloride (98-107) mmol/L Carbon Dioxide (22-30) mmol/L Anion Gap (5-15) MEQ/L BUN (7-17) mg/dL Creatinine (0.52-1.04) mg/dL Estimated GFR ML/MIN Glucose (74-106) mg/dL Calcium (8.4-10.2) mg/dL Total Bilirubin (0.2-1.3) mg/dL AST (14-36) U/L ALT (0-35) U/L Alkaline Phosphatase (38-126) U/L Troponin I < 0.012 < 0.012 (0.000-0.034) ng/mL Serum Total Protein (6.3-8.2) g/dL Albumin (3.5-5.0) g/dL 01/17/22 Range/Units 05:58 WBC (4.0-10.5) x10^3/uL RBC (4.1-5.4) x10^6/uL Hgb (12.0-16.0) g/dL Hct (35-47) % MCV (78-100) fL MCH (26-32) pg MCHC (32-36) g/dL RDW (11.5-14.0) % Plt Count (150-450) x10^3/uL MPV (7.5-11.0) fL Gran % (36.0-66.0) % Immature Gran % (Auto) (0.00-0.4) % Nucleat RBC Rel Count (0.00-0.1) % Eos # (Auto) (0-0.5) x10^3/uL Immature Gran # (Auto) (0.00-0.03) x10^3u/L Absolute Lymphs (auto) (1.0-4.6) x10^3/uL Absolute Monos (auto) (0.0-1.3) x10^3/uL Absolute Nucleated RBC (0.00-0.01) x10^3u/L Lymphocytes % (24.0-44.0) % Monocytes % (0.0-12.0) % Eosinophils % (0.00-5.0) % Basophils % (0.0-0.4) % Absolute Granulocytes (1.4-6.9) x10^3/uL Basophils # (0-0.4) x10^3/uL Sodium 138 (137-145) mmol/L Potassium 4.3 (3.5-5.1) mmol/L Chloride 98 (98-107) mmol/L Carbon Dioxide 33 H (22-30) mmol/L Anion Gap 11.2 (5-15) MEQ/L BUN 29 H (7-17) mg/dL Creatinine 1.37 H (0.52-1.04) mg/dL Estimated GFR 39.5 ML/MIN Glucose 101 (74-106) mg/dL Calcium 9.0 (8.4-10.2) mg/dL Total Bilirubin 0.60 (0.2-1.3) mg/dL AST 28 (14-36) U/L ALT 19 (0-35) U/L Alkaline Phosphatase 53 (38-126) U/L Troponin I (0.000-0.034) ng/mL Serum Total Protein 8.5 H (6.3-8.2) g/dL Albumin 3.9 (3.5-5.0) g/dL - Radiology Impressions Radiology Exams & Impressions: Radiology Procedures Category Date Time Status CHEST 1 VIEW (PORTABLE) Stat Exams 01/16/22 07:26 Completed Assessment/Plan (1) Chest pain, rule out acute myocardial infarction Current Visit: Yes Status: Acute Assessment & Plan: Troponins neg, CO ruled out. Pain resolved. F/u with PCP in 1 week. Code(s): R07.9 - CHEST PAIN, UNSPECIFIED (2) Hypertensive urgency Current Visit: Yes Status: Resolved Assessment & Plan: She thinks related to her pain last night and I think this is reasonable. She does need to return to ER for similar increase in BP and/or chest pain. BP since admission have certainly been well-controlled, mostly in the 120s-130s systolic and down to 110 systolic. Code(s): I16.0 - HYPERTENSIVE URGENCY (3) Hypertension Current Visit: No Status: Chronic Qualifiers: Hypertension type: primary hypertension Qualified Code(s): I10 - Essential (primary) hypertension Code(s): I10 - ESSENTIAL (PRIMARY) HYPERTENSION (4) Anemia Current Visit: No Status: Chronic Qualifiers: Anemia type: unspecified type Qualified Code(s): D64.9 - Anemia, unspecified Assessment & Plan: Was told by Dr. Combs to take OTC iron. Code(s): D64.9 - ANEMIA, UNSPECIFIED (5) Chronic renal insufficiency Current Visit: Yes Status: Chronic Qualifiers: Chronic kidney disease stage: stage 3 (moderate) Assessment & Plan: sees Dr. Ulrich. eGFR is 39.5 this morning (was 38.6 on admission). Recheck BMP in 1 week. Code(s): N18.9 - CHRONIC KIDNEY DISEASE, UNSPECIFIED (6) Rheumatoid arthritis Current Visit: No Status: Chronic Qualifiers: Rheumatoid arthritis location: unspecified site Rheumatoid factor presence: unspecified presence Qualified Code(s): M06.9 - Rheumatoid arthritis, unspecif ied Assessment & Plan: Sees Dr. Combs. Code(s): M06.9 - RHEUMATOID ARTHRITIS, UNSPECIFIED Hospital Summary - Hospital Course Hospital Course: Pt was admitted through ER for chest pain and increased shortness of breath - troponins were neg x 5 and cxr was nonacute. She was hypertensive at home (180/100) but BP in the hospital have been well-controlled. D-dimer was not done in ER, but at the time of hospital discharge, she is back to baseline with no chest pain and her normal degree of dyspnea, so will not check at this time and will discharge her to home. 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 - Vitals & Intake/Output Vital Signs: Vital Signs Temperature 97.1 F 01/17/22 12:00 Pulse Rate 65 01/17/22 12:00 Respiratory Rate 18 01/17/22 12:00 Blood Pressure 110/60 01/17/22 12:00 O2 Sat by Pulse Oximetry 95 01/17/22 12:00 Intake & Output: Intake & Output 01/15/22 01/16/22 01/17/22 01/18/22 11:59 11:59 11:59 11:59 Intake Total 2060 480 Output Total 3750 Balance -1690 480 Weight 90.9 kg - Lab Result Diagrams: 01/17/22 05:58 01/17/22 05:58 Lab Results-Last 24 Hrs: Lab Results-Last 24 Hours 01/16/22 01/16/22 01/17/22 Range/Units 16:30 19:29 05:58 WBC 3.9 L (4.0-10.5) x10^3/uL RBC 3.36 L (4.1-5.4) x10^6/uL Hgb 10.8 L (12.0-16.0) g/dL Hct 33.5 L (35-47) % MCV 99.7 (78-100) fL MCH 32.1 H (26-32) pg MCHC 32.2 (32-36) g/dL RDW 13.6 (11.5-14.0) % Plt Count 181 (150-450) x10^3/uL MPV 9.8 (7.5-11.0) fL Gran % 40.9 (36.0-66.0) % Immature Gran % (Auto) 0.3 (0.00-0.4) % Nucleat RBC Rel Count 0.0 (0.00-0.1) % Eos # (Auto) 0.17 (0-0.5) x10^3/uL Immature Gran # (Auto) 0.01 (0.00-0.03) x10^3u/L Absolute Lymphs (auto) 1.47 (1.0-4.6) x10^3/uL Absolute Monos (auto) 0.62 (0.0-1.3) x10^3/uL Absolute Nucleated RBC 0.00 (0.00-0.01) x10^3u/L Lymphocytes % 37.7 (24.0-44.0) % Monocytes % 15.9 H (0.0-12.0) % Eosinophils % 4.4 (0.00-5.0) % Basophils % 0.8 (0.0-0.4) % Absolute Granulocytes 1.60 (1.4-6.9) x10^3/uL Basophils # 0.03 (0-0.4) x10^3/uL Sodium (137-145) mmol/L Potassium (3.5-5.1) mmol/L Chloride (98-107) mmol/L Carbon Dioxide (22-30) mmol/L Anion Gap (5-15) MEQ/L BUN (7-17) mg/dL Creatinine (0.52-1.04) mg/dL Estimated GFR ML/MIN Glucose (74-106) mg/dL Calcium (8.4-10.2) mg/dL Total Bilirubin (0.2-1.3) mg/dL AST (14-36) U/L ALT (0-35) U/L Alkaline Phosphatase (38-126) U/L Troponin I < 0.012 < 0.012 (0.000-0.034) ng/mL Serum Total Protein (6.3-8.2) g/dL Albumin (3.5-5.0) g/dL 01/17/22 Range/Units 05:58 WBC (4.0-10.5) x10^3/uL RBC (4.1-5.4) x10^6/uL Hgb (12.0-16.0) g/dL Hct (35-47) % MCV (78-100) fL MCH (26-32) pg MCHC (32-36) g/dL RDW (11.5-14.0) % Plt Count (150-450) x10^3/uL MPV (7.5-11.0) fL Gran % (36.0-66.0) % Immature Gran % (Auto) (0.00-0.4) % Nucleat RBC Rel Count (0.00-0.1) % Eos # (Auto) (0-0.5) x10^3/uL Immature Gran # (Auto) (0.00-0.03) x10^3u/L Absolute Lymphs (auto) (1.0-4.6) x10^3/uL Absolute Monos (auto) (0.0-1.3) x10^3/uL Absolute Nucleated RBC (0.00-0.01) x10^3u/L Lymphocytes % (24.0-44.0) % Monocytes % (0.0-12.0) % Eosinophils % (0.00-5.0) % Basophils % (0.0-0.4) % Absolute Granulocytes (1.4-6.9) x10^3/uL Basophils # (0-0.4) x10^3/uL Sodium 138 (137-145) mmol/L Potassium 4.3 (3.5-5.1) mmol/L Chloride 98 (98-107) mmol/L Carbon Dioxide 33 H (22-30) mmol/L Anion Gap 11.2 (5-15) MEQ/L BUN 29 H (7-17) mg/dL Creatinine 1.37 H (0.52-1.04) mg/dL Estimated GFR 39.5 ML/MIN Glucose 101 (74-106) mg/dL Calcium 9.0 (8.4-10.2) mg/dL Total Bilirubin 0.60 (0.2-1.3) mg/dL AST 28 (14-36) U/L ALT 19 (0-35) U/L Alkaline Phosphatase 53 (38-126) U/L Troponin I (0.000-0.034) ng/mL Serum Total Protein 8.5 H (6.3-8.2) g/dL Albumin 3.9 (3.5-5.0) g/dL - Radiology Exams Ordered Rad Exams-Entire Visit: Radiology Procedures Category Date Time Status CHEST 1 VIEW (PORTABLE) Stat Exams 01/16/22 07:26 Completed - Procedures and Test Procedures and Tests throughout Hospitalization: Therapy Orders & Screens 01/16/22 10:15 Oxygen Nasal Cannula 2 lpm Comment: - Discharge Disposition: Home, Self-Care Condition: Stable Prescriptions: Continue Iron,Carbonyl [Iron Chews] 65 mg PO DAILY Torsemide [Demadex] 20 mg PO UD PRN PRN Reason: FLUID RETENTION Multivitamin [Multivitamins] 1 cap PO DAILY Losartan Potassium 50 mg PO BID Folic Acid 1 mg PO DAILY Albuterol 2.5 mg/3 ml Neb [Proventil 2.5 mg/3 ml Neb] 2.5 mg IH QID #30 udcap Metoprolol Tartrate 50 mg [Lopressor 50 MG] 100 mg PO BID hydroCHLOROthiazide [Hydrochlorothiazide] 12.5 mg PO DAILY Mecobalamin [B12 Active] 500 mg DAILY Cyclobenzaprine HCl 5 mg PO UD PRN PRN Reason: Muscle Spasms Prednisone 5 mg [Deltasone 5 mg] 5 mg PO UD Hydrocodone/Acetaminophen [Hydrocodone-Acetamin 7.5-325] 1 each PO Q4H PRN PRN PRN Reason: Pain Montelukast Sodium 10 mg [Singulair 10 MG] 10 mg PO QPM Potassium Gluconate [Potassium] 595 mg PO UD Gabapentin 300 mg PO TID Acetaminophen 500 mg [Tylenol Extra Strength 500 mg] 500 mg PO BID Instructions: Chest Pain (DC)
== END 2022-01-17 15:55 | disposition home or self-care (01) ==
LOC: ED 07:15 → MED SURG 10:14
PROVIDERS: ADMIT Family Medicine; ATTEND Family Medicine
DX: R07.9 Chest pain, unspecified (principal); I16.0 Hypertensive urgency; I11.0 Hypertensive heart disease with heart failure; I50.9 Heart failure, unspecified; D64.9 Anemia, unspecified; N18.9 Chronic kidney disease, unspecified; M06.9 Rheumatoid arthritis, unspecified; E78.5 Hyperlipidemia, unspecified; B02.9 Zoster without complications; M79.89 Other specified soft tissue disorders; Z79.899 Other long term (current) drug therapy; Z20.828 Contact with and (suspected) exposure to other viral communicable diseases; Z90.2 Acquired absence of lung [part of]
CPT/HCPCS: 0241U; 36000; 36415; 71045; 80053; 82550; 83880; 84484; 85025; 93005; 93041; 94760; 96374; 96375; 99285; 93268; 94660; J2270; J2405; A9270-GY; G0378

== ENCOUNTER 2022-09-28 08:34 | Inpatient (IN) | payer MEDICARE ==
[2022-09-28] MEDS ORDERED: MORPHINE SULFATE 4 MG INJ IV ONE (08:46)
[2022-09-28] MEDS ORDERED: ZOFRAN ODT 4 MG PO ONE ×2 (08:46→11:24)
[2022-09-28] MEDS ORDERED: ZOFRAN ODT 4 MG ONE (08:49)
[2022-09-28] MEDS ORDERED: MORPHINE SULFATE 4 MG INJ ONE (08:50)
--- NOTE | 2022-09-28 09:30 | XRAY ---
Indication: Severe low back pain 3 days. History osteoporosis. Multiple contiguous axial images obtained through the lumbar spine. Sagittal and coronal reformatted images obtained. Comparison: None. There is a MRI lumbar spine October 02, 2019. Osseous structures demineralized. Superior endplate L2 demonstrates new concave deformity with approximately 25% height loss favoring fracture of uncertain chronicity. No spinal canal or foraminal compromise. Mild/moderate multilevel thoracolumbar degenerative disc disease including minimal L1-L2/L4-L5 degenerative vacuum disc phenomena. Sagittal and coronal reformatted images demonstrates 3-4 mm anterolisthesis of L4 on L5 unchanged. Visualized noncontrasted soft tissues are unremarkable. Impression: 1. New L2 superior endplate fracture of uncertain chronicity. 2. Multilevel degenerative spondylosis and minimal grade 1 L4 listhesis.
--- NOTE | 2022-09-28 09:42 | ERPHSYRPT ---
- History of Present Illness Time Seen by Provider: 09/28/22 08:45 Source: patient Exam Limitations: no limitations Patient Subjective Stated Complaint: Pt states "I have pain in my lower back and it will not go away." Triage Nursing Assessment: PT presented alert and oriented X 3, skin pwd. Pt able to speak in clear full sentences. Pt grunting and gasping. Pt unable to sit still, pt laying on her side and moaning. Physician History: Patient is an 82-year-old female presents via EMS for evaluation of low back pain. Pain started acutely while she was bending forward to lift her grandchild. Pain progressively worsened. Pain described as a ache that is localized to her lumbar spine. Pain worse with movement and palpation. Patient has a history of osteoporosis per patient. Patient admits to history of chronic back pain but not this severe. Patient advised that she lives alone and does not have any help. Patient denies change in bowel bladder function. No saddle anesthesia. No fever. No recent back procedure. Symptoms are moderate to severe in intensity. Patient voices no other complaints or concerns at this time. Portions of this note were created with voice recognition technology. There may be grammatical, spelling, punctuation or sound alike errors Timing/Duration: day(s) (3 days) Severity: severe (Severe pain) Modifying Factors: Improves With: movement (Movement reproduces pain.) Associated Symptoms: denies symptoms (No associated fever. No trauma. No rash. No change in bowel bladder function. No saddle anesthesia) Allergies/Adverse Reactions: Penicillins Allergy (Mild, Verified 01/16/22 11:15) shakes ibuprofen [From Motrin] Allergy (Unknown, Verified 01/16/22 07:24) Swelling high doses only soy Allergy (Unknown, Verified 01/16/22 07:24) Swelling swell to the point of suffocation aspirin Adverse Reaction (Verified 01/16/22 07:24) pt is on low dose and dose fine. Pt states she brakes out with regular dose asa Home Medications: Iron,Carbonyl [Iron Chews] 65 mg PO DAILY 09/25/14 [History] Multivitamin [Multivitamins] 1 cap PO DAILY 09/25/14 [History] Torsemide [Demadex] 20 mg PO UD PRN 09/25/14 [History] Folic Acid 1 mg PO DAILY 03/06/15 [History] Losartan Potassium 50 mg PO BID 03/06/15 [History] Metoprolol Tartrate 50 mg [Lopressor 50 MG] 100 mg PO BID 01/17/16 [History] hydroCHLOROthiazide [Hydrochlorothiazide] 12.5 mg PO DAILY 09/06/20 [History] Acetaminophen 500 mg [Tylenol Extra Strength 500 mg] 500 mg PO BID 01/16/22 [History] Cyclobenzaprine HCl 5 mg PO UD PRN 01/16/22 [History] Gabapentin 300 mg PO TID 01/16/22 [History] Hydrocodone/Acetaminophen [Hydrocodone-Acetamin 7.5-325] 1 each PO Q4H PRN PRN 01/16/22 [History] Mecobalamin [B12 Active] 500 mg DAILY 01/16/22 [History] Montelukast Sodium 10 mg [Singulair 10 MG] 10 mg PO QPM 01/16/22 [History] Potassium Gluconate [Potassium] 595 mg PO UD 01/16/22 [History] Prednisone 5 mg [Deltasone 5 mg] 5 mg PO UD 01/16/22 [History] Hx Tetanus, Diphtheria Vaccination/Date Given: No Hx Influenza Vaccination/Date Given: Yes Hx Pneumococcal Vaccination/Date Given: Yes Immunizations Up to Date: Yes Travel Risk - International Travel Have you traveled outside of the country in past 3 weeks: No - Coronavirus Screening Are you exhibiting any of the following symptoms?: No Close contact with a COVID-19 positive Pt in past 14-21 Days: No - Vaccine Status Have you recieved a Covid-19 vaccination: Yes 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 - Vaccination Dates Date of 2cond Vaccination (if applicable): 10/2020 Comment: patient states she also had a booster - Review of Systems Constitutional: No Symptoms, No Fever, No Chills Eyes: No Symptoms Ears, Nose, & Throat: No Symptoms Respiratory: No Symptoms, No Cough, No Dyspnea Cardiac: No Symptoms, No Chest Pain, No Edema, No Syncope Abdominal/Gastrointestinal: No Symptoms, No Abdominal Pain, No Nausea, No Vomiting, No Diarrhea Genitourinary Symptoms: No Symptoms, No Dysuria Musculoskeletal: Other (Back pain history of osteoporosis), No Back Pain, No Neck Pain Skin: No Symptoms, No Rash Neurological: No Symptoms, No Dizziness, No Focal Weakness, No Sensory Changes Psychological: No Symptoms Endocrine: No Symptoms Hematologic/Lymphatic: No Symptoms Immunological/Allergic: No Symptoms All Other Systems: Reviewed and Negative - Past Medical History Pertinent Past Medical History: Yes Neurological History: No Pertinent History ENT History: Cataracts Cardiac History: No Pertinent History Respiratory History: COPD Endocrine Medical History: No Pertinent History Musculoskeletal History: Osteoarthritis, Osteoporosis, Rheumatoid Arthritis, Other GI Medical History: GERD, Hemorrhoids, Hernia, Polyps History: Other Psycho-Social History: No Pertinent History Female Reproductive Disorders: No Pertinent History Other Medical History: RA diagnosis 2014, goes for infusion every [address] Ulrich for "borderline" kidney disease , bladder infections, - Past Surgical History Past Surgical History: Yes Neuro Surgical History: No Pertinent History Cardiac: Cardiac Catheterization Respiratory: Lobectomy Gastrointestinal: Appendectomy, Hernia Repair Genitourinary: No Pertinent History Musculoskeletal: Orthopedic Surgery Female Surgical History: Hysterectomy Other Surgical History: ZAHIDA KNEE REPLACEMENTS, knee scopes x4, carpel tunnel x2 R hip replacement november 2020, - Social History Smoking Status: Former smoker How long have you smoked: 1 year Exposure to second hand smoke: Yes Drug Use: none Patient Lives Alone: No - Nursing Vital Signs Nursing Vital Signs: Initial Vital Signs Temperature 98.7 F 09/28/22 08:37 Pulse Rate 67 09/28/22 08:37 Respiratory Rate 24 09/28/22 08:37 Blood Pressure 151/50 09/28/22 08:37 O2 Sat by Pulse Oximetry 97 09/28/22 08:37 Pain Scale Pain Intensity [] 8 Pain Intensity 6 - Physical Exam General Appearance: no apparent distress, alert Eye Exam: PERRL/EOMI, eyes nml inspection Ears, Nose, Throat Exam: normal ENT inspection, TMs normal, pharynx normal, moist mucous membranes Neck Exam: normal inspection, non-tender, supple, full range of motion Respiratory Exam: normal breath sounds, lungs clear, No respiratory distress Cardiovascular Exam: regular rate/rhythm, normal heart sounds, normal peripheral pulses Gastrointestinal/Abdomen Exam: soft, normal bowel sounds, No tenderness, No mass Back Exam: normal inspection, other (Range of motion limited at the lumbar spine due to pain. Tenderness to palpation along the midline lumbar spine and lumbar paraspinal musculature no signs of trauma), No CVA tenderness, No vertebral tenderness Extremity Exam: normal inspection, normal range of motion, pelvis stable Neurologic Exam: alert, oriented x 3, cooperative, normal mood/affect, sensation nml, No motor deficits Skin Exam: normal color, warm, dry, No rash Lymphatic Exam: No adenopathy SpO2 Interpretation: normal SpO2: 97 O2 Delivery: Room Air - Course Nursing assessment & vital signs reviewed: Yes - CT Exams Abdomen/Pelvis CT Interpretation: Tele-radiologist Report (New L2 superior endplate fracture of 25% height loss, chronicity uncertain. Multilevel degenerative spondylolysis and minimal grade 1 L4 spondylolisthesis L4-L5 3 to 4 mm anterolisthesis) Ordered Tests: Active Orders 24 hr Category Date Time Status LUMBAR SPINE W/O [CT] Stat Exams 09/28/22 08:44 Completed UA W/RFX UR CULTURE Stat Lab 09/28/22 09:27 Completed Transfer Order Routine Transfer 09/28/22 Ordered Medication Summary Discontinued Medications Generic Name Dose Route Start Last Admin Trade Name Freq PRN Reason Stop Dose Admin Morphine Sulfate 4 mg 09/28/22 08:46 09/28/22 08:51 Morphine Sulfate 4 Mg/Ml Injection IV 09/28/22 08:47 4 mg STAT ONE Administration Morphine Sulfate Confirm 09/28/22 08:50 Morphine Sulfate 4 Mg/Ml Injection Administered 09/28/22 08:51 Dose 4 mg .ROUTE .STK-MED ONE Ondansetron HCl 4 mg 09/28/22 08:46 09/28/22 08:51 Zofran 4 Mg/Udtablet Orally Disintegrating PO 09/28/22 08:47 4 mg STAT ONE Administration Ondansetron HCl Confirm 09/28/22 08:49 Zofran 4 Mg/Udtablet Orally Disintegrating Administered 09/28/22 08:50 Dose 4 mg .ROUTE .STK-MED ONE Lab/Rad Data: Laboratory Results 09/28/22 09/28/22 Range/Units 10:18 09:27 Urine Color Yellow (Yellow) Urine Appearance Clear (Clear) Urine pH 7.0 (4.6-8.0) Ur Specific [place] 1.010 (1.005-1.030) Urine Protein Negative (Negative) Urine Glucose (UA) Negative (Negative) mg/dL Urine Ketones Negative (Negative) Urine Blood Negative (Negative) Urine Nitrite Negative (Negative) Urine Bilirubin Negative (Negative) Urine Urobilinogen 0.2 (0.2) mg/dL Ur Leukocyte Esterase Trace A (Negative) Urine Microscopic RBC 3-5 (0-5) /HPF Urine Microscopic WBC 0-2 (0-5) /HPF Ur Epithelial Cells None Seen (None Seen) /HPF Urine Bacteria None Seen (None Seen) /HPF Urine Culture Reflexed NO (NO) Influenza Type A Ag NEGATIVE (NEGATIVE) Influenza Type B Ag NEGATIVE (NEGATIVE) RSV (PCR) NEGATIVE (Negative) SARS-CoV-2 (PCR) NEGATIVE (NEGATIVE) - Progress Progress: improved Progress Note: We obtain medical records from [facility]. The CT scan of the abdomen and pelvis with IV contrast read identifies a large paraesophageal hiatal hernia. The pancreatic tail is included in the hernia sac without inflammation. There is a 2 cm right renal cyst noted right hip arthroplasty with hysterectomy observed. A copy of the urinalysis CBC and chemistry was also forwarded to us from [facility]. This was reviewed by Dr. Giron. No significant abnormalities observed. Patient reassessed. Pain significantly improved however patient's pain is tolerable only when she lies onto her left side, left side-lying. Any movement produces severe pain. Patient states she lives alone. Patient has no one to help her at home. Patient requesting admission due to to the level of pain and the level of disability the pain is causing. CT scan reveals a new L2 superior endplate fracture with 25% height loss. This is likely acute. It is possible the patient's severe pain is emanating from this fracture. The patient is an 82-year-old female presents to our ED for evaluation of back pain that started Wednesday. Physical exam reveals significant tenderness at the upper lumbar segment. Patient's complaint is acute. Complexity of patient's problem is moderate. Patient has a history of osteoporosis that may have precipitated this fracture and pain sequence of events. CT scan as reported above. The results of the CT scan was used in medical decision-making. . Patient has a history of stage III kidney disease which she attributes to chronic steroid use. We were unable to give patient Toradol for pain control. Patient given morphine instead. Morphine intramuscularly appears to have been successful in improving patient's symptoms. She is now resting comfortably in a single position however movement reproduces severe pain. Patient unable to perform ADLs at this time due to back pain. We are currently awaiting COVID results for admission. Level of service provided was moderate. Complexity of medical problem addressed is moderate. Complex of data reviewed and analyzed is moderate. Include the level of EM service provided min/straightforward, low, moderate, high, critical care Risk of complication and or risk of morbidity/mortality patient management is moderate. EMS provided significant information regarding the history of HPI. Patient also provided some information although limited due to pain. Initial evaluation suggested possible lumbosacral strain however in light of the CAT scan report it is apparent that patient's pain is coming from her lumbar spine fracture. Time spent in disposition is approximately 15 minutes. Case discussed with Dr. Smiley who accepts admission to observation. Patient agrees to admission [facility] for further evaluation and treatment. Admission diagnoses lumbar spine fracture, intractable pain and acute disability due to pain. portions of this note were created with voice recognition technology. There may be grammatical, spelling, punctuation or sound alike errors 09/28/22 10:[address] Justyna Will see patient in: hospital (observation) Counseled pt/family regarding: lab results, diagnosis, rad results Medical Desision Making - Independent Historian Additional History obtained from: Assistant Oceanographer/EMT - External Record(s) Reviewed Records reviewed as a part of evaluation & management: Discharge Summary (We also obtained a copy of the CT scan laboratory work-up and urinalysis from [facility]) - Discussion of managment Care discussed with:: on-call "doc" Reviewed:: Test results Agreed on:: Treatment plan Will see patient: in hospital - Social Determinants of Health Patient's diagnosis & treatment plan are significantly: Unemployed (Patient lives alone and does not have an anyone to help her during her acute illness.) - Diagnostic Testing Diagnostic Testing: Diagnostic tests were ordered,analyzed, and reviewed by me and used in my medical decision making for this patient. Radiologic studies (if ordered) were read by me initially then discussed with the radiologist . - Risk of complications The pt has a high risk of morbidity or mortality based on: Drug therapy requiring intensive monitoring for toxicity - Departure Departure Disposition: Observation Clinical Impression: Spine fracture, Intractable back pain Condition: Stable Critical Care Time: No Referrals: MACIE MENDEZ MD [Primary Care Provider] - Follow up/PCP as directed
[2022-09-28 10:50] LABS: Appearance Clear (Clear); Bilirubin Negative (Negative); Blood Negative (Negative); Glucose, Urine Negative (Negative); Ketones Negative (Negative); Leukocyte Esterase Trace (Negative); Nitrite Negative (Negative); Protein,Urine Dip Negative (Negative); Urobilinogen 0.2 mg/dL (0.2)
[2022-09-28 10:52] LABS: WBC 0-2 /HPF (0-5)
[2022-09-28 10:53] LABS: ADD URINE CULTURE? NO (NO); Bacteria None Seen /HPF (None Seen); Epithelial Cells None Seen /HPF (None Seen)
[2022-09-28 10:55] LABS: INFLUENZA A NEGATIVE (NEGATIVE); INFLUENZA B NEGATIVE (NEGATIVE); RESPIRATORY SYNCTIAL VIRUS NEGATIVE (Negative); SARS-CoV-2 Xpert Express NEGATIVE (NEGATIVE)
[2022-09-28] MEDS ORDERED: MORPHINE SULFATE 4 MG INJ IV PRN (11:24)
[2022-09-28 14:28] LABS: Absolute Neutrophil Ct (ANC) 3.65 x10^3/uL (1.4-6.9); BASOPHIL % 0.8 % (0.0-0.4); Basophil (Absolute #) 0.05 x10^3/uL (0-0.4); Eosinophil % 3.8 % (0.00-5.0); Eosinophil (Absolute #) 0.25 x10^3/uL (0-0.5); Hematocrit 31.7 % (35-47); Hemoglobin 10.2 g/dL (12.0-16.0); IMMATURE GRAN # 0.01 x10^3u/L (0.00-0.03); IMMATURE GRAN % 0.2 % (0.00-0.4); Lymphocytes % 31.6 % (24.0-44.0); Mean Cell Volume 97.8 fL (78-100); Mean Corpuscular Hemoglobin 31.5 pg (26-32); Mean Corpuscular Hgb Concent. 32.2 g/dL (32-36); Mean Platelet Volume 9.6 fL (7.5-11.0); Monocyte (Absolute #) 0.58 x10^3/uL (0.0-1.3); Monocytes % 8.7 % (0.0-12.0); Neutrophil % 54.9 % (36.0-66.0); Platelet Count 163 x10^3/uL (150-450); Red Blood Count 3.24 x10^6/uL (4.1-5.4); Red Cell Distribution Width 12.5 % (11.5-14.0); White Blood Count 6.6 x10^3/uL (4.0-10.5)
[2022-09-28] MEDS: Hydromorphone 1 mg/ml Injection IV PRN ×2 (14:32→18:19)
[2022-09-28] MEDS ORDERED: Lasix 40 MG PO PRN (14:49)
[2022-09-28] MEDS ORDERED: TYLENOL EXTRA STRENGTH 500 MG PO PRN (14:49)
[2022-09-28] MEDS ORDERED: POTASSIUM GLUCONATE 600 MG PO SCH (15:00)
[2022-09-28] MEDS ORDERED: DELTASONE 5 MG PO PRN (15:00)
[2022-09-28 15:15] LABS: ALBUMIN 3.5 g/dL (3.5-5.0); ANION GAP 8.1 MEQ/L (5-15); BILIRUBIN,TOTAL 0.4 mg/dL (0.2-1.3); Calcium 8.4 mg/dL (8.4-10.2); Creatinine 1 1.16 mg/dL (0.52-1.04); EST GLOMERULAR FILTRATION RATE 47.8 ML/MIN; Potassium 3.8 mmol/L (3.5-5.1); TSH, 3RD Generation 2.34 mIU/L (0.47-4.68); Total Protein 7.6 g/dL (6.3-8.2)
[2022-09-28] MEDS ORDERED: MEDICATION INTERVENTION MC SCH (15:15)
[2022-09-28] MEDS: PROVENTIL 2.5 MG/3 ML NEB IH SCH ×2 (15:34→19:14)
[2022-09-28] MEDS: Cozaar 50 MG PO SCH ×2 (16:55→21:16)
[2022-09-28] MEDS: Lopressor 50 MG PO SCH ×2 (16:56→21:17)
[2022-09-28] MEDS: NORVASC 5 MG PO SCH (16:57)
[2022-09-28] MEDS: Vitamin B-12 500 MCG PO SCH (16:57)
[2022-09-28] MEDS ORDERED: HYDROMORPHONE 30 MG/30 ML-NS PCA IV PRN (18:32)
[2022-09-28] MEDS ORDERED: Sodium Chloride 0.9% 1000 ML 1,000 ML ONE (18:45)
[2022-09-28] MEDS: Sodium Chloride 0.9% 1000 ML 1,000 ML IV SCH (19:25)
[2022-09-28] MEDS: Acidophilus TABLET PO SCH (19:25)
[2022-09-28] MEDS: Protonix 40MG Tablet PO SCH (19:26)
[2022-09-28] MEDS: THERAGRAN MULTIVITAMIN PO SCH (19:26)
[2022-09-28] MEDS: Cyclobenzaprine 10 MG PO SCH ×2 (19:26→21:13)
[2022-09-28] MEDS: NEURONTIN PO SCH (19:26)
[2022-09-28] MEDS: FEOSOL 325 MG PO SCH (19:26)
[2022-09-28] MEDS: Docusate Sodium 100 MG PO SCH (21:16)
[2022-09-28] MEDS: Singulair 10 MG PO SCH (21:17)
[2022-09-28] MEDS ORDERED: NON-FORMULARY ITEM (Losartan Potassium [Losartan Potassium] 100 MG Tablet) PO SCH (22:00)
[2022-09-29] MEDS: Cyclobenzaprine 10 MG PO SCH ×5 (00:12→22:41)
[2022-09-29] MEDS: PROVENTIL 2.5 MG/3 ML NEB IH SCH ×4 (07:25→19:13)
[2022-09-29] MEDS ORDERED: NON-FORMULARY ITEM (Mecobalamin [B12 Active] 1,000 MCG Tab.Chew) PO SCH (10:00)
[2022-09-29] MEDS ORDERED: NON-FORMULARY ITEM (Omeprazole [Omeprazole] 40 MG Capsule.Dr) PO SCH (10:00)
[2022-09-29] MEDS ORDERED: IRON CARBONYL 15 MG PO SCH (10:00)
[2022-09-29] MEDS ORDERED: NON-FORMULARY ITEM (Multivitamin [Multivitamins] 1 EACH Capsule) PO SCH (10:00)
[2022-09-29] MEDS ORDERED: NON-FORMULARY ITEM (L.Acidoph,Paracasei, B.Lactis [Probiotic] 1 EACH Capsule) PO SCH (10:00)
[2022-09-29] MEDS: Protonix 40MG Tablet PO SCH (10:28)
[2022-09-29] MEDS: THERAGRAN MULTIVITAMIN PO SCH (10:28)
[2022-09-29] MEDS: NEURONTIN PO SCH (10:28)
[2022-09-29] MEDS: NORVASC 5 MG PO SCH (10:28)
[2022-09-29] MEDS: Vitamin B-12 500 MCG PO SCH (10:28)
[2022-09-29] MEDS: Cozaar 50 MG PO SCH ×2 (10:28→22:41)
[2022-09-29] MEDS: Acidophilus TABLET PO SCH (10:29)
[2022-09-29] MEDS: FEOSOL 325 MG PO SCH (10:29)
[2022-09-29] MEDS: Lopressor 50 MG PO SCH ×2 (10:29→22:41)
[2022-09-29] MEDS ORDERED: HYDROMORPHONE 30 MG/30 ML-NS PCA IV PRN (14:23)
[2022-09-29] MEDS: Sodium Chloride 0.9% 1000 ML 1,000 ML IV SCH (14:54)
--- NOTE | 2022-09-29 19:26 | PCM.HP ---
History of Present Illness - Chief Complaint Chief Complaint: L2 LUMBAR FRACTURE Date: 09/28/22 History of Present Illness: is a 82 year old female patient who presented to ER with C/O severe LBP that started after lifting her grandchild. Medications & Allergies Home Medications: Home Medication List Iron,Carbonyl [Iron Chews] 65 mg PO DAILY 09/25/14 [History Confirmed 09/28/22] Multivitamin [Multivitamins] 1 cap PO DAILY 09/25/14 [History Confirmed 09/28/22] Losartan Potassium 50 mg PO BID 03/06/15 [History Confirmed 09/28/22] Albuterol 2.5 mg/3 ml Neb [Proventil 2.5 mg/3 ml Neb] 2.5 mg IH QID #30 udcap 11/17/15 [Rx Confirmed 09/28/22] Metoprolol Tartrate 50 mg [Lopressor 50 MG] 100 mg PO BID 01/17/16 [History Confirmed 09/28/22] Acetaminophen 500 mg [Tylenol Extra Strength 500 mg] 500 mg PO BID PRN PRN 01/16/22 [History Confirmed 09/28/22] Cyclobenzaprine HCl 5 mg PO UD PRN 01/16/22 [History Confirmed 09/28/22] Gabapentin 300 mg PO DAILY 01/16/22 [History Confirmed 09/28/22] Mecobalamin [B12 Active] 1,000 mg PO DAILY 01/16/22 [History Confirmed 09/28/22] Montelukast Sodium 10 mg [Singulair 10 MG] 10 mg PO QPM 01/16/22 [History Confirmed 09/28/22] Potassium Gluconate [Potassium] 595 mg PO UD 01/16/22 [History Confirmed 09/28/22] Prednisone 5 mg [Deltasone 5 mg] 5 mg PO UD 01/16/22 [History Confirmed 09/28/22] Amlodipine Besylate 5 mg [Norvasc 5 mg] 10 mg PO DAILY 09/28/22 [History Confirmed 09/28/22] Docusate Sodium [Colace] 200 mg PO HS 09/28/22 [History Confirmed 09/28/22] Furosemide [Lasix] 40 mg PO UD PRN 09/28/22 [History Confirmed 09/28/22] L.acidoph,Paracasei, B.lactis [Probiotic] 1 each PO DAILY 09/28/22 [History Confirmed 09/28/22] Omeprazole 40 mg PO DAILY 09/28/22 [History Confirmed 09/28/22] Allergies/Adverse Reactions: Allergies Allergy/AdvReac Type Severity Reaction Status Date / Time Penicillins Allergy Mild Rash Verified 09/28/22 12:06 ibuprofen [From Motrin] Allergy Unknown Swelling Verified 01/16/22 07:24 soy Allergy Unknown Swelling Verified 01/16/22 07:24 aspirin AdvReac Rash Verified 09/28/22 12:06 - Past Medical History Past Medical History: Yes Neurological History: No Pertinent History ENT History: Cataracts Cardiac History: Hypertension Respiratory History: COPD Endocrine Medical History: No Pertinent History Musculoskelatal History: Osteoarthritis, Osteoporosis, Rheumatoid Arthritis, Other GI Medical History: GERD, Hemorrhoids, Hernia, Polyps History: Other Pyscho-Social History: No Pertinent History Reproductive Disorders: No Pertinent History Comment: RA diagnosis 2014, goes for infusion every [address] Ulrich for "borderline" kidney disease , bladder infections, r hip replacement, partial hysterectomy, double knee replacement - Female History Are you now?: No - Past Surgical History Past Surgical History: Yes Neuro Surgical History: No Pertinent History Cardiac History: Cardiac Catheterization Respiratory Surgery: Lobectomy GI Surgical History: Appendectomy, Hernia Repair Genitourinary Surgical Hx: No Pertinent History Musculskeletal Surgical Hx: Orthopedic Surgery Female Surgical History: Hysterectomy Other Surgical History: ZAHIDA KNEE REPLACEMENTS, knee scopes x4, carpel tunnel x2 R hip replacement november 2020, r upper lobectomy - Social History Smoking Status: Former smoker How long have you smoked: 1 year Exposure to second hand smoke: Yes Alcohol: None Drug Use: none - Physical Exam Vital Signs: Vital Signs - 24 hr Temp Pulse Resp BP Pulse Ox 09/29/22 16:00 100.7 F 74 17 139/70 90 L 09/29/22 11:47 97.6 F 68 18 129/74 91 L 09/29/22 06:45 98.3 F 63 17 128/64 92 L 09/29/22 04:00 98.0 F 65 18 117/56 94 L 09/28/22 23:18 97.5 F 70 18 123/58 94 L Results - Labs Lab/Micro Results: Microbiology 09/28/22 Unknown Urine Culture - Preliminary Urine, Indwelling Catheter NO GROWTH TO DATE - Radiology Impressions Radiology Exams & Impressions: Radiology Procedures Category Date Time Status LUMBAR SPINE W/O [CT] Stat Exams 09/28/22 08:44 Completed - Other Procedures and Tests Respiratory Therapy 09/28/22 22:02 Oxygen Nasal Cannula 2 lpm
[2022-09-29] MEDS ORDERED: PROVENTIL 2.5 MG/3 ML NEB IH PRN (19:54)
[2022-09-29] MEDS: Docusate Sodium 100 MG PO SCH (22:41)
[2022-09-29] MEDS: MILK OF MAGNESIA 30 ML PO PRN (22:41)
[2022-09-29] MEDS: Singulair 10 MG PO SCH (22:42)
[2022-09-30] MEDS ORDERED: HYDROMORPHONE 30 MG/30 ML-NS PCA IV PRN (09:00)
[2022-09-30] MEDS: NEURONTIN PO SCH (09:40)
[2022-09-30] MEDS: Cyclobenzaprine 10 MG PO SCH ×4 (09:40→21:28)
[2022-09-30] MEDS: Protonix 40MG Tablet PO SCH (09:40)
[2022-09-30] MEDS: Cozaar 50 MG PO SCH ×2 (09:40→21:28)
[2022-09-30] MEDS: NORVASC 5 MG PO SCH (09:40)
[2022-09-30] MEDS: Vitamin B-12 500 MCG PO SCH (09:40)
[2022-09-30] MEDS: Lopressor 50 MG PO SCH ×2 (09:40→21:27)
[2022-09-30] MEDS: Acidophilus TABLET PO SCH (09:40)
[2022-09-30] MEDS: THERAGRAN MULTIVITAMIN PO SCH (09:40)
[2022-09-30] MEDS: FEOSOL 325 MG PO SCH (09:40)
[2022-09-30] MEDS: Sodium Chloride 0.9% 1000 ML 1,000 ML IV SCH (11:03)
[2022-09-30] MEDS: OXYCODONE-ACETAMINOPHEN 10-325 PO PRN (11:08)
[2022-09-30] MEDS: Docusate Sodium 100 MG PO SCH (21:27)
[2022-09-30] MEDS: Singulair 10 MG PO SCH (21:28)
[2022-09-30] MEDS: MILK OF MAGNESIA 30 ML PO PRN (21:29)
[2022-10-01] MEDS: Sodium Chloride 0.9% 1000 ML 1,000 ML IV SCH (08:04)
[2022-10-01] MEDS: THERAGRAN MULTIVITAMIN PO SCH (11:06)
[2022-10-01] MEDS: NEURONTIN PO SCH (11:06)
[2022-10-01] MEDS: Vitamin B-12 500 MCG PO SCH (11:06)
[2022-10-01] MEDS: Acidophilus TABLET PO SCH (11:06)
[2022-10-01] MEDS: Cyclobenzaprine 10 MG PO SCH ×4 (11:06→22:51)
[2022-10-01] MEDS: FEOSOL 325 MG PO SCH (11:06)
[2022-10-01] MEDS: Cozaar 50 MG PO SCH ×2 (11:06→22:50)
[2022-10-01] MEDS: NORVASC 5 MG PO SCH (11:06)
[2022-10-01] MEDS: Protonix 40MG Tablet PO SCH (11:06)
[2022-10-01] MEDS: Lopressor 50 MG PO SCH ×2 (11:06→22:51)
[2022-10-01] MEDS: OXYCODONE-ACETAMINOPHEN 10-325 PO PRN ×2 (16:40→22:46)
[2022-10-01] MEDS: Docusate Sodium 100 MG PO SCH (22:50)
[2022-10-01] MEDS: Singulair 10 MG PO SCH (22:50)
[2022-10-01] MEDS: MILK OF MAGNESIA 30 ML PO PRN (22:51)
[2022-10-02] MEDS: OXYCODONE-ACETAMINOPHEN 10-325 PO PRN ×2 (03:13→08:00)
[2022-10-02 05:22] LABS: Absolute Neutrophil Ct (ANC) 4.47 x10^3/uL (1.4-6.9); BASOPHIL % 0.4 % (0.0-0.4); Basophil (Absolute #) 0.03 x10^3/uL (0-0.4); Eosinophil % 6.3 % (0.00-5.0); Eosinophil (Absolute #) 0.45 x10^3/uL (0-0.5); Hematocrit 29.2 % (35-47); Hemoglobin 9.2 g/dL (12.0-16.0); IMMATURE GRAN # 0.03 x10^3u/L (0.00-0.03); IMMATURE GRAN % 0.4 % (0.00-0.4); Lymphocyte (Absolute #) 1.51 x10^3/uL (1.0-4.6); Lymphocytes % 21.2 % (24.0-44.0); Mean Cell Volume 97.3 fL (78-100); Mean Corpuscular Hemoglobin 30.7 pg (26-32); Mean Corpuscular Hgb Concent. 31.5 g/dL (32-36); Mean Platelet Volume 9.9 fL (7.5-11.0); Monocyte (Absolute #) 0.62 x10^3/uL (0.0-1.3); Monocytes % 8.7 % (0.0-12.0); Platelet Count 170 x10^3/uL (150-450); Red Cell Distribution Width 12.6 % (11.5-14.0); White Blood Count 7.1 x10^3/uL (4.0-10.5)
[2022-10-02 05:58] LABS: ALBUMIN 3.3 g/dL (3.5-5.0); ANION GAP 8.1 MEQ/L (5-15); BILIRUBIN,TOTAL 0.4 mg/dL (0.2-1.3); Creatinine 1 1.22 mg/dL (0.52-1.04); EST GLOMERULAR FILTRATION RATE 45.1 ML/MIN; Potassium 4.9 mmol/L (3.5-5.1); Total Protein 7.2 g/dL (6.3-8.2)
[2022-10-02] MEDS ORDERED: ZOFRAN ODT 4 MG PO PRN (10:00)
[2022-10-02] MEDS ORDERED: PERCOCET TABLET 5/325MG PO PRN (10:01)
[2022-10-02] MEDS: Acidophilus TABLET PO SCH (10:59)
[2022-10-02] MEDS: Cyclobenzaprine 10 MG PO SCH ×2 (11:00→14:38)
[2022-10-02] MEDS: MILK OF MAGNESIA 30 ML PO PRN (11:18)
[2022-10-02] MEDS: Protonix 40MG Tablet PO SCH (11:27)
[2022-10-02] MEDS: FEOSOL 325 MG PO SCH (11:36)
[2022-10-02] MEDS: Cozaar 50 MG PO SCH (11:36)
[2022-10-02] MEDS: THERAGRAN MULTIVITAMIN PO SCH (11:37)
[2022-10-02] MEDS: NORVASC 5 MG PO SCH (11:37)
[2022-10-02] MEDS: Vitamin B-12 500 MCG PO SCH (11:37)
[2022-10-02] MEDS: Lopressor 50 MG PO SCH (11:37)
[2022-10-02] MEDS: NEURONTIN PO SCH (11:37)
[2022-10-02 11:59] VITALS: BP 118/59; PULSE 89; O2SAT 92
[2022-10-02] MEDS ORDERED: DULCOLAX 5 MG PO PRN (12:59)
== END 2022-10-02 15:00 | disposition swing bed (61) | DRG 552 ==
LOC: ED 08:34 → MED SURG 11:20 → OBSVTOIN 09-29 09:00
PROVIDERS: ADMIT Family Medicine; ATTEND Family Medicine
DX: S32.029A Unspecified fracture of second lumbar vertebra, initial encounter for closed fracture (principal); N28.9 Disorder of kidney and ureter, unspecified; I10 Essential (primary) hypertension; Z79.899 Other long term (current) drug therapy; Z20.828 Contact with and (suspected) exposure to other viral communicable diseases
CPT/HCPCS: 0241U; 36000; 36415; 72131; 80053; 81001; 82607; 84443; 85025; 87086; 93268; 94762; 96372; 97110; 97161; 97165; 97530; 99285; G0378; J1170; J2270; Q0162; A9270-GY

== ENCOUNTER 2022-10-02 14:01 | Inpatient (IN) | payer MEDICARE ==
[2022-10-02] MEDS ORDERED: PROVENTIL 2.5 MG/3 ML NEB IH PRN (15:24)
[2022-10-02] MEDS ORDERED: MEDICATION INTERVENTION MC SCH (15:24)
[2022-10-02] MEDS ORDERED: DELTASONE 5 MG PO PRN (15:24)
[2022-10-02] MEDS ORDERED: Lasix 40 MG PO PRN (15:24)
[2022-10-02] MEDS: PERCOCET TABLET 5/325MG PO PRN (17:08)
[2022-10-02] MEDS: ZOFRAN ODT 4 MG PO PRN (17:42)
[2022-10-02] MEDS: Cyclobenzaprine 10 MG PO SCH ×2 (17:56→21:26)
[2022-10-02] MEDS: Lopressor 50 MG PO SCH (21:26)
[2022-10-02] MEDS: Docusate Sodium 100 MG PO SCH (21:26)
[2022-10-02] MEDS: Cozaar 50 MG PO SCH (21:26)
[2022-10-02] MEDS: Singulair 10 MG PO SCH (21:27)
[2022-10-03] MEDS: PERCOCET TABLET 5/325MG PO PRN ×2 (08:01→20:01)
[2022-10-03] MEDS: THERAGRAN MULTIVITAMIN PO SCH (08:50)
[2022-10-03] MEDS: Vitamin B-12 500 MCG PO SCH (08:50)
[2022-10-03] MEDS: Cyclobenzaprine 10 MG PO SCH ×4 (08:50→20:01)
[2022-10-03] MEDS: Protonix 40MG Tablet PO SCH (08:50)
[2022-10-03] MEDS: NEURONTIN PO SCH (08:51)
[2022-10-03] MEDS: Cozaar 50 MG PO SCH ×2 (08:51→20:01)
[2022-10-03] MEDS: Acidophilus TABLET PO SCH (08:51)
[2022-10-03] MEDS: NORVASC 5 MG PO SCH (08:52)
[2022-10-03] MEDS: Lopressor 50 MG PO SCH ×2 (08:54→20:01)
[2022-10-03] MEDS: FEOSOL 325 MG PO SCH (08:58)
[2022-10-03] MEDS ORDERED: Aplisol ID ONE (10:00)
[2022-10-03] MEDS ORDERED: Dulcolax 10 MG SUPP PR ONE (14:07)
[2022-10-03] MEDS: MILK OF MAGNESIA 30 ML PO PRN (14:42)
[2022-10-03 15:27] LABS: Absolute Neutrophil Ct (ANC) 3.36 x10^3/uL (1.4-6.9); BASOPHIL % 0.8 % (0.0-0.4); Basophil (Absolute #) 0.05 x10^3/uL (0-0.4); Eosinophil % 6.3 % (0.00-5.0); Eosinophil (Absolute #) 0.39 x10^3/uL (0-0.5); Hematocrit 30.5 % (35-47); Hemoglobin 9.4 g/dL (12.0-16.0); IMMATURE GRAN # 0.02 x10^3u/L (0.00-0.03); IMMATURE GRAN % 0.3 % (0.00-0.4); Lymphocyte (Absolute #) 1.54 x10^3/uL (1.0-4.6); Lymphocytes % 24.8 % (24.0-44.0); Mean Cell Volume 99.7 fL (78-100); Mean Corpuscular Hemoglobin 30.7 pg (26-32); Mean Corpuscular Hgb Concent. 30.8 g/dL (32-36); Mean Platelet Volume 10.2 fL (7.5-11.0); Monocyte (Absolute #) 0.84 x10^3/uL (0.0-1.3); Monocytes % 13.5 % (0.0-12.0); Neutrophil % 54.3 % (36.0-66.0); Platelet Count 169 x10^3/uL (150-450); Red Blood Count 3.06 x10^6/uL (4.1-5.4); Red Cell Distribution Width 12.3 % (11.5-14.0); White Blood Count 6.2 x10^3/uL (4.0-10.5)
[2022-10-03 15:42] LABS: ALBUMIN 3.5 g/dL (3.5-5.0); BILIRUBIN,TOTAL 0.4 mg/dL (0.2-1.3); Calcium 8.4 mg/dL (8.4-10.2); Creatinine 1 1.24 mg/dL (0.52-1.04); EST GLOMERULAR FILTRATION RATE 44.2 ML/MIN; Potassium 4.5 mmol/L (3.5-5.1); Total Protein 7.8 g/dL (6.3-8.2)
[2022-10-03] MEDS ORDERED: Reglan 10 MG PO ONE (17:08)
[2022-10-03] MEDS: Docusate Sodium 100 MG PO SCH (20:01)
--- NOTE | 2022-10-03 20:12 | XRAY ---
Indication: Obstipation. Comparison: None Portable KUB limited due to patient body habitus. Mild diffuse scattered colonic fecal debris. No focal bowel dilatation, obstruction, or large free air. Solid organs unremarkable. Osseous structures intact with osteopenia, degenerative changes, and right hip arthroplasty. Comment: Preliminary interpretation made by [facility]. No critical discrepancy.
[2022-10-03] MEDS: Singulair 10 MG PO SCH (22:31)
[2022-10-04] MEDS: Acidophilus TABLET PO SCH (09:05)
[2022-10-04] MEDS: Cyclobenzaprine 10 MG PO SCH ×4 (09:05→21:08)
[2022-10-04] MEDS: Lopressor 50 MG PO SCH ×2 (09:05→21:09)
[2022-10-04] MEDS: THERAGRAN MULTIVITAMIN PO SCH (09:06)
[2022-10-04] MEDS: DULCOLAX 5 MG PO PRN (09:06)
[2022-10-04] MEDS: Protonix 40MG Tablet PO SCH (09:06)
[2022-10-04] MEDS: Vitamin B-12 500 MCG PO SCH (09:06)
[2022-10-04] MEDS: Cozaar 50 MG PO SCH ×2 (09:07→21:08)
[2022-10-04] MEDS: PERCOCET TABLET 5/325MG PO PRN (09:07)
[2022-10-04] MEDS: NEURONTIN PO SCH (09:07)
[2022-10-04] MEDS: FEOSOL 325 MG PO SCH (09:16)
[2022-10-04] MEDS: NORVASC 5 MG PO SCH (09:23)
[2022-10-04] MEDS ORDERED: Dulcolax 10 MG SUPP PR ONE (15:00)
[2022-10-04] MEDS ORDERED: Reglan 10 MG PO ONE (15:00)
[2022-10-04] MEDS: TYLENOL EXTRA STRENGTH 500 MG PO PRN (16:50)
[2022-10-04] MEDS: ZOFRAN ODT 4 MG PO PRN (18:10)
[2022-10-04] MEDS: Docusate Sodium 100 MG PO SCH (21:08)
[2022-10-04] MEDS: Singulair 10 MG PO SCH (21:09)
[2022-10-05] MEDS: TYLENOL EXTRA STRENGTH 500 MG PO PRN (04:30)
[2022-10-05] MEDS: NORVASC 5 MG PO SCH (11:01)
[2022-10-05] MEDS: Acidophilus TABLET PO SCH (11:01)
[2022-10-05] MEDS: Lopressor 50 MG PO SCH ×2 (11:01→22:01)
[2022-10-05] MEDS: THERAGRAN MULTIVITAMIN PO SCH (11:02)
[2022-10-05] MEDS: Cyclobenzaprine 10 MG PO SCH ×5 (11:02→22:01)
[2022-10-05] MEDS: Cozaar 50 MG PO SCH ×2 (11:02→22:01)
[2022-10-05] MEDS: NEURONTIN PO SCH (11:02)
[2022-10-05] MEDS: Protonix 40MG Tablet PO SCH (11:02)
[2022-10-05] MEDS: Vitamin B-12 500 MCG PO SCH (11:02)
[2022-10-05] MEDS: PERCOCET TABLET 5/325MG PO PRN (12:13)
[2022-10-05] MEDS: Docusate Sodium 100 MG PO SCH (22:00)
[2022-10-05] MEDS: Singulair 10 MG PO SCH (22:01)
[2022-10-06] MEDS: TYLENOL EXTRA STRENGTH 500 MG PO PRN (04:33)
[2022-10-06] MEDS: PERCOCET TABLET 5/325MG PO PRN ×3 (07:40→15:53)
[2022-10-06] MEDS: Cozaar 50 MG PO SCH ×2 (09:22→21:48)
[2022-10-06] MEDS: Vitamin B-12 500 MCG PO SCH (09:22)
[2022-10-06] MEDS: NEURONTIN PO SCH (09:22)
[2022-10-06] MEDS: Protonix 40MG Tablet PO SCH (09:22)
[2022-10-06] MEDS: NORVASC 5 MG PO SCH (09:22)
[2022-10-06] MEDS: Cyclobenzaprine 10 MG PO SCH ×4 (09:22→21:48)
[2022-10-06] MEDS: Lopressor 50 MG PO SCH ×2 (09:22→21:48)
[2022-10-06] MEDS: THERAGRAN MULTIVITAMIN PO SCH (09:23)
[2022-10-06] MEDS: Acidophilus TABLET PO SCH (09:36)
[2022-10-06] MEDS: MILK OF MAGNESIA 30 ML PO PRN (21:48)
[2022-10-06] MEDS: Docusate Sodium 100 MG PO SCH (21:48)
[2022-10-06] MEDS: Singulair 10 MG PO SCH (21:48)
[2022-10-07] MEDS: TYLENOL EXTRA STRENGTH 500 MG PO PRN ×2 (06:26→21:06)
[2022-10-07] MEDS: NORVASC 5 MG PO SCH (09:30)
[2022-10-07] MEDS: NEURONTIN PO SCH (09:31)
[2022-10-07] MEDS: PERCOCET TABLET 5/325MG PO PRN ×2 (09:31→13:57)
[2022-10-07] MEDS: DULCOLAX 5 MG PO PRN (09:31)
[2022-10-07] MEDS: Vitamin B-12 500 MCG PO SCH (09:31)
[2022-10-07] MEDS: THERAGRAN MULTIVITAMIN PO SCH (09:31)
[2022-10-07] MEDS: Cyclobenzaprine 10 MG PO SCH ×4 (09:32→21:06)
[2022-10-07] MEDS: Protonix 40MG Tablet PO SCH (09:32)
[2022-10-07] MEDS: Lopressor 50 MG PO SCH ×2 (09:32→21:07)
[2022-10-07] MEDS: Cozaar 50 MG PO SCH ×2 (09:32→21:07)
[2022-10-07] MEDS: Acidophilus TABLET PO SCH (09:32)
[2022-10-07] MEDS: MILK OF MAGNESIA 30 ML PO PRN (16:24)
[2022-10-07] MEDS: Singulair 10 MG PO SCH (21:06)
[2022-10-07] MEDS: Docusate Sodium 100 MG PO SCH (21:07)
[2022-10-08] MEDS: Vitamin B-12 500 MCG PO SCH (08:29)
[2022-10-08] MEDS: PERCOCET TABLET 5/325MG PO PRN ×2 (08:29→13:15)
[2022-10-08] MEDS: DULCOLAX 5 MG PO PRN (08:29)
[2022-10-08] MEDS: NORVASC 5 MG PO SCH (08:29)
[2022-10-08] MEDS: Lopressor 50 MG PO SCH ×2 (08:29→21:27)
[2022-10-08] MEDS: Protonix 40MG Tablet PO SCH (08:29)
[2022-10-08] MEDS: Cyclobenzaprine 10 MG PO SCH ×4 (08:30→21:27)
[2022-10-08] MEDS: Acidophilus TABLET PO SCH (08:30)
[2022-10-08] MEDS: NEURONTIN PO SCH (08:30)
[2022-10-08] MEDS: THERAGRAN MULTIVITAMIN PO SCH (08:30)
[2022-10-08] MEDS: Cozaar 50 MG PO SCH ×2 (08:30→21:27)
[2022-10-08] MEDS: FEOSOL 325 MG PO SCH (09:42)
[2022-10-08] MEDS ORDERED: Dulcolax 10 MG SUPP PR PRN (12:56)
[2022-10-08] MEDS: Docusate Sodium 100 MG PO SCH (21:26)
[2022-10-08] MEDS: Singulair 10 MG PO SCH (21:27)
[2022-10-08] MEDS: TYLENOL EXTRA STRENGTH 500 MG PO PRN (21:28)
[2022-10-09 07:13] VITALS: BP 101/53; PULSE 69; O2SAT 97
[2022-10-09] MEDS: Lopressor 50 MG PO SCH (09:38)
[2022-10-09] MEDS: Acidophilus TABLET PO SCH (09:38)
[2022-10-09] MEDS: FEOSOL 325 MG PO SCH (09:38)
[2022-10-09] MEDS: Cyclobenzaprine 10 MG PO SCH ×2 (09:38→15:24)
[2022-10-09] MEDS: Cozaar 50 MG PO SCH (09:38)
[2022-10-09] MEDS: Vitamin B-12 500 MCG PO SCH (09:39)
[2022-10-09] MEDS: NORVASC 5 MG PO SCH (09:39)
[2022-10-09] MEDS: NEURONTIN PO SCH (09:39)
[2022-10-09] MEDS: Protonix 40MG Tablet PO SCH (09:39)
[2022-10-09] MEDS: DULCOLAX 5 MG PO PRN (09:39)
[2022-10-09] MEDS: THERAGRAN MULTIVITAMIN PO SCH (09:43)
[2022-10-09] MEDS: TYLENOL EXTRA STRENGTH 500 MG PO PRN (11:04)
[2022-10-09] MEDS: PERCOCET TABLET 5/325MG PO PRN (15:24)
== END 2022-10-09 15:42 | disposition home health service (06) | DRG 552 ==
LOC: MED SURG 15:00
PROVIDERS: ADMIT Family Medicine; ATTEND Family Medicine
DX: S32.029A Unspecified fracture of second lumbar vertebra, initial encounter for closed fracture (principal); N28.9 Disorder of kidney and ureter, unspecified; I10 Essential (primary) hypertension; K59.00 Constipation, unspecified; Z79.899 Other long term (current) drug therapy; Z20.828 Contact with and (suspected) exposure to other viral communicable diseases
CPT/HCPCS: 36415; 74018; 80053; 85025; 94760; 94762; Q0162; 97110-GP; A9270-GY

== ENCOUNTER 2023-06-09 14:25 | Emergency (ER) | payer MEDICARE ==
--- NOTE | 2023-06-09 14:27 | ERPHSYRPT ---
- History of Present Illness Time Seen by Provider: 06/09/23 14:26 Source: patient, family Exam Limitations: no limitations Physician History: This is an 83-year-old white female patient of veterinary technician instructor Dr. Dave Dao. He called me prior to the patient arriving to the emergency department desiring to evaluate this patient here in the emergency department by drawing labs and obtaining a CT scan of the chest with contrast to evaluate for pulmonary embolism. Patient was diagnosed with COVID-19 infection on 05/29/2023 and received 5 days of Paxlovid intravenously. She continues to have shortness of breath and was seen by her primary care provider who placed her on Levaquin antibiotic on 06/07/2023. She did not feel that she was improving and she was referred to the veterinary technician instructor where he saw her today and contacted me. Patient arrives with a room air oxygen saturation level 98%. This is consistent with what Dr. Dao described as the patient having normal oxygen saturation level but working to breathe. Symptomatically, the patient complains of a productive cough with yellow, thick sputum and a heaviness in the chest that is central and nonradiating. Patient has a history of hypertension, COPD, gastroesophageal reflux disease, rheumatoid arthritis and chronic renal disease. She sees Dr. Ulrich for this. Patient uses 2 L of oxygen via nasal cannula at night only. Activities at Onset: none Severity of Dyspnea-Max: moderate Severity of Dyspnea-Current: moderate Possible Cause: occasional episodes Modifying Factors: Improves With: activity, oxygen, rest Associated Symptoms: anxiety, cough, chest pain/discomfort (Describes it as a 4 out of 10 heaviness) Allergies/Adverse Reactions: Penicillins Allergy (Mild, Verified 06/09/23 14:33) Rash shakes ibuprofen [From Motrin] Allergy (Unknown, Verified 06/09/23 14:33) Swelling high doses only soy Allergy (Unknown, Verified 06/09/23 14:33) Swelling swell to the point of suffocation aspirin Adverse Reaction (Verified 06/09/23 14:33) Rash pt is on low dose and dose fine. Pt states she brakes out with regular dose asa Home Medications: Iron,Carbonyl [Iron Chews] 65 mg PO DAILY 09/25/14 [History] Multivitamin [Multivitamins] 1 cap PO DAILY 09/25/14 [History] Losartan Potassium 50 mg PO BID 03/06/15 [History] Metoprolol Tartrate 50 mg [Lopressor 50 MG] 100 mg PO BID 01/17/16 [History] Acetaminophen 500 mg [Tylenol Extra Strength 500 mg] 500 mg PO BID PRN PRN 01/16/22 [History] Cyclobenzaprine HCl 5 mg PO UD PRN 01/16/22 [History] Gabapentin 300 mg PO DAILY 01/16/22 [History] Mecobalamin [B12 Active] 1,000 mg PO DAILY 01/16/22 [History] Montelukast Sodium 10 mg [Singulair 10 MG] 10 mg PO QPM 01/16/22 [History] Potassium Gluconate [Potassium] 595 mg PO UD 01/16/22 [History] Prednisone 5 mg [Deltasone 5 mg] 5 mg PO UD 01/16/22 [History] Amlodipine Besylate 5 mg [Norvasc 5 mg] 10 mg PO DAILY 09/28/22 [History] Docusate Sodium [Colace] 200 mg PO HS 09/28/22 [History] Furosemide [Lasix] 40 mg PO UD PRN 09/28/22 [History] L.acidoph,Paracasei, B.lactis [Probiotic] 1 each PO DAILY 09/28/22 [History] Omeprazole 40 mg PO DAILY 09/28/22 [History] Hx Tetanus, Diphtheria Vaccination/Date Given: No Hx Influenza Vaccination/Date Given: Yes Hx Pneumococcal Vaccination/Date Given: Yes Travel Risk - International Travel Have you traveled outside of the country in past 3 weeks: No - Coronavirus Screening Are you exhibiting any of the following symptoms?: Yes Symptoms: Cough: New Onset, Shortness of Breath - Vaccine Status Have you recieved a Covid-19 vaccination: Yes [employer] Consultant: Moderna - Vaccination Dates Date of 2cond Vaccination (if applicable): 10/2020 - Review of Systems Constitutional: Weakness Eyes: No Symptoms Ears, Nose, & Throat: No Symptoms Respiratory: Cough, Dyspnea Cardiac: Chest Pain (Describes it as a 4 out of 10 heaviness in the chest) Abdominal/Gastrointestinal: No Symptoms Genitourinary Symptoms: No Symptoms Musculoskeletal: No Symptoms Skin: No Symptoms Neurological: No Symptoms Psychological: No Symptoms Endocrine: No Symptoms Hematologic/Lymphatic: No Symptoms Immunological/Allergic: No Symptoms All Other Systems: Reviewed and Negative - Past Medical History Pertinent Past Medical History: Yes Neurological History: No Pertinent History ENT History: Cataracts Cardiac History: Hypertension Respiratory History: COPD Endocrine Medical History: No Pertinent History Musculoskeletal History: Fractures, Osteoarthritis, Osteoporosis, Rheumatoid Arthritis, Other GI Medical History: GERD, Hemorrhoids, Hernia, Polyps History: Other Psycho-Social History: No Pertinent History Female Reproductive Disorders: No Pertinent History Other Medical History: RA diagnosis 2014, goes for infusion every [address] Ulrich for "borderline" kidney disease , bladder infections, r hip replacement, partial hysterectomy, double knee replacement. L2 LUMBAR FX. - Past Surgical History Past Surgical History: Yes Neuro Surgical History: No Pertinent History Cardiac: Cardiac Catheterization Respiratory: Lobectomy Gastrointestinal: Appendectomy, Hernia Repair Genitourinary: No Pertinent History Musculoskeletal: Orthopedic Surgery Female Surgical History: Hysterectomy Other Surgical History: ZAHDIA KNEE REPLACEMENTS, knee scopes x4, carpel tunnel x2 R hip replacement november 2020, r upper lobectomy - Social History Smoking Status: Former smoker How long have you smoked: 1 year Exposure to second hand smoke: No Drug Use: none Patient Lives Alone: No - Nursing Vital Signs Nursing Vital Signs: Initial Vital Signs Pulse Rate 74 06/09/23 14:31 Respiratory Rate 21 06/09/23 14:31 Blood Pressure 152/62 06/09/23 14:31 O2 Sat by Pulse Oximetry 99 06/09/23 14:31 Pain Scale Pain Intensity 4 - Physical Exam General Appearance: no apparent distress, alert, anxiety Eye Exam: PERRL/EOMI, eyes nml inspection Ears, Nose, Throat Exam: hearing grossly normal, normal ENT inspection, normal pharynx Neck Exam: normal inspection, non-tender, supple, full range of motion Respiratory Exam: normal breath sounds, lungs clear, airway intact, No chest tenderness, No respiratory distress Cardiovascular/Chest Exam: normal heart sounds, regular rate/rhythm Abdominal/Gastrointestinal Exam: soft, normal bowel sounds, No tenderness Rectal Exam: not done Extremity Exam: non-tender, normal range of motion, normal inspection, normal capillary refill, no calf tenderness, no pedal edema, pelvis stable Neurologic Exam: alert, oriented x 3, cooperative, 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 as tested, normal mood/affect, nml cerebellar function, nml station & gait, sensation nml Skin Exam: normal color, warm, dry Lymphatic Exam: No adenopathy SpO2 Interpretation: normal O2 Delivery: Room Air - Course Nursing assessment & vital signs reviewed: Yes EKG Interpreted by Me: RATE (74), Sinus Rhythm, NORMAL AXIS, NORMAL INTERVALS, NORMAL QRS, NORMAL ST-T, Other (No acute ischemic changes on today's twelve-lead EKG.) Ordered Tests: Active Orders 24 hr Category Date Time Status EKG-ER Only STAT Care 06/09/23 14:27 Active IV Insertion STAT Care 06/09/23 14:27 Active Pulse Oximetry (ED) STAT Care 06/09/23 14:27 Active CHEST WITH CONTRAST [CT] Stat Exams 06/09/23 14:28 Completed CBC W DIFF Stat Lab 06/09/23 14:45 Completed CMP Stat Lab 06/09/23 14:45 Completed Manual Differential NC Stat Lab 06/09/23 14:45 Completed NT PRO BNPII Stat Lab 06/09/23 14:45 Completed TROPONIN Q4H Lab 06/09/23 14:45 Completed TROPONIN Q4H Lab 06/09/23 18:30 Ordered TROPONIN Q4H Lab 06/09/23 22:30 Ordered Medication Summary Generic Name Dose Route Start Last Admin Trade Name Freq PRN Reason Stop Dose Admin Sodium Chloride 500 mls @ 50 mls/hr 06/09/23 16:00 06/09/23 15:59 Sodium Chloride 0.9% 500 Ml IV 07/09/23 15:59 Not Given .Q10H MALIK Sodium Chloride 1,000 mls @ 50 mls/hr 06/09/23 16:00 06/09/23 16:00 Sodium Chloride 0.9% 1000 Ml IV 07/09/23 15:59 50 mls/hr .Q20H MALIK Administration Discontinued Medications Generic Name Dose Route Start Last Admin Trade Name Freq PRN Reason Stop Dose Admin Sodium Chloride Confirm 06/09/23 15:57 Sodium Chloride 0.9% 1000 Ml Administered 06/09/23 15:58 Dose 1,000 mls @ ud .ROUTE .[employer] Lab/Rad Data: Laboratory Result Diagrams 06/09/23 14:45 06/09/23 14:45 Laboratory Results 06/09/23 06/09/23 06/09/23 Range/Units 14:45 14:45 14:45 WBC 7.1 (4.0-10.5) x10^3/uL RBC 3.03 L (4.1-5.4) x10^6/uL Hgb 9.5 L (12.0-16.0) g/dL Hct 30.1 L (35-47) % MCV 99.3 (78-100) fL MCH 31.4 (26-32) pg MCHC 31.6 L (32-36) g/dL RDW 12.4 (11.5-14.0) % Plt Count 258 (150-450) x10^3/uL MPV 9.6 (7.5-11.0) fL Segmented Neutrophils 65 (36.0-66.0) % Lymphocytes (Manual) 28 (24-44) % Monocytes (Manual) 3 (0.0-12.0) % Eosinophils (Manual) 4 H (0.00-3.0) % Platelet Estimate NORMAL (NORMAL) RBC Morphology ABNORMAL Anisocytosis RARE Sodium 137 (137-145) mmol/L Potassium 4.3 (3.5-5.1) mmol/L Chloride 103 (98-107) mmol/L Carbon Dioxide 21 L (22-30) mmol/L Anion Gap 17.0 H (5-15) MEQ/L BUN 25 H (7-17) mg/dL Creatinine 1.42 H (0.52-1.04) mg/dL Estimated GFR 37.7 ML/MIN Glucose 118 H (74-106) mg/dL Calcium 9.1 (8.4-10.2) mg/dL Total Bilirubin 0.40 (0.2-1.3) mg/dL AST 31 (14-36) U/L ALT 24 (0-35) U/L Alkaline Phosphatase 76 (38-126) U/L Troponin I < 0.012 (0.000-0.034) ng/mL NT-Pro-B Natriuret Pep 865 (<300) pg/mL Serum Total Protein 8.8 H (6.3-8.2) g/dL Albumin 4.0 (3.5-5.0) g/dL - Progress Progress: re-examined Air Movement: fair Progress Note: 06/09/23 15:27 This patient's medical issue is 1 of moderate to high complexity. Level of complexity in the work-up performed is based on review of the patient's past medical history, review the patient's medication list, review the patient drug allergy list, history of present illness and physical findings on examination. This patient work-up includes placement of intravenous line, CBC, CMP, troponin level, BNP level, twelve-lead EKG. 06/09/23 16:[address] scan of the chest with contrast was interpreted by the radiologist and I reviewed the impression. This study states negative for pulmonary embolus. There is no acute cardiopulmonary abnormality. There is a very large hiatal hernia with complete intrathoracic stomach and subsequent bilateral lobe atelectasis. There is no comparison films available. 06/09/23 16:50 I reviewed the results of the laboratory studies that were performed. Patient has chronic anemia and it is in the same range as her anemia/hemoglobins have been since September 2022. Patient also has chronic renal disease and this may account for her chronic anemia. Patient has a normal room air oxygenation level. She feels as though she is short of breath. The CT scan does not show pneumonia or evidence of pulmonary embolus. Part of her shortness of breath may be secondary to the large hiatal hernia that is compressing bilateral lower lobes of her lungs. Her troponin level and BNP level are in appropriate ranges. I will discuss with the patient the findings of the laboratory and r adiographic work-up and will discuss discharge plans. 06/09/23 16:59 I reviewed the results of the laboratory and radiographic work-up with the patient and the patient's daughter. They were aware of the patient having a very large hiatal hernia. Patient was told in the recent past not to undergo g eneral anesthesia for repair and reduction of this large hiatal hernia. Blood Culture(s) Obtained: Yes Antibiotics given: No Counseled pt/family regarding: lab results, need for follow-up Medical Desision Making - Independent Historian Additional History obtained from: Child - Diagnostic Testing Diagnostic test were ordered, analyzed, and reviewed by me: Yes Radiological Interpretation: Reviewed by me, Teleradiologist Report - Risk of complications Low Risk: Low risk of morbidity from additional dx testing or treatment - Departure Departure Disposition: Home Clinical Impression: COVID-19 virus infection, Large hiatal hernia Condition: Stable Critical Care Time: No Referrals: MACIE MENDEZ MD [Primary Care Provider] - Follow up/PCP as directed Additional Instructions: Take your medication as prescribed. Wear your oxygen 24 hours a day until your veterinary technician instructor tells you to stop. Return to the emergency department if symptoms worsen.
[2023-06-09 15:20] LABS: Hematocrit 30.1 % (35-47); Hemoglobin 9.5 g/dL (12.0-16.0); Mean Cell Volume 99.3 fL (78-100); Mean Corpuscular Hemoglobin 31.4 pg (26-32); Mean Corpuscular Hgb Concent. 31.6 g/dL (32-36); Mean Platelet Volume 9.6 fL (7.5-11.0); Platelet Count 258 x10^3/uL (150-450); Red Blood Count 3.03 x10^6/uL (4.1-5.4); Red Cell Distribution Width 12.4 % (11.5-14.0); White Blood Count 7.1 x10^3/uL (4.0-10.5)
[2023-06-09 15:26] LABS: BILIRUBIN,TOTAL 0.4 mg/dL (0.2-1.3); Calcium 9.1 mg/dL (8.4-10.2); Creatinine 1 1.42 mg/dL (0.52-1.04); EST GLOMERULAR FILTRATION RATE 37.7 ML/MIN; Potassium 4.3 mmol/L (3.5-5.1); Total Protein 8.8 g/dL (6.3-8.2)
[2023-06-09 15:37] LABS: NT PRO BNPII 865 pg/mL (<300); TROPONIN < 0.012 ng/mL (0.000-0.034)
[2023-06-09] MEDS ORDERED: Sodium Chloride 0.9% 1000 ML 1,000 ML ONE (15:57)
[2023-06-09] MEDS ORDERED: Sodium Chloride 0.9% 1000 ML 1,000 ML IV SCH (16:00)
[2023-06-09] MEDS ORDERED: Sodium Chloride 0.9% 500 ML 500 ML IV SCH (16:00)
[2023-06-09 16:09] VITALS: O2SAT 96
[2023-06-09 16:09] LABS: Eosinophil 4 % (0.00-3.0); Lymphocytes 28 % (24-44); Monocyte 3 % (0.0-12.0); Neutrophils 65 % (36.0-66.0); Total Cells Counted 100
[2023-06-09 16:10] LABS: ANISOCYTOSIS RARE; Platelet Estimate NORMAL (NORMAL)
--- NOTE | 2023-06-09 16:43 | XRAY ---
Indication: Short of breath. Positive Covid 19. Multiple contiguous axial images obtained through the chest using 100 cc Isovue 370 contrast and PE protocol. Comparison: None Good opacification of the pulmonary arteries to include the lobar and segmental branches. No pulmonary embolus. Heart borderline enlarged. Aorta is normal in course and caliber. No pathologic mediastinal/hilar adenopathy. Very large hiatal hernia with complete intrathoracic stomach. Lungs hyperinflated with medial left and right lower lobe compressive atelectasis secondary to hiatal hernia. Minimal scattered peripheral fibrosis/scarring. No suspicious pulmonary mass/nodule, infiltrate, or effusion. Bony thorax intact with osteopenia, mild/moderate degenerative changes throughout the spine, and L1/L2 vertebroplasty. Limited upper abdomen demonstrates 2.3 cm right renal cyst. Impression: 1. Negative pulmonary embolus. No acute cardiopulmonary abnormalities. 2. Very large hiatal hernia with complete intrathoracic stomach and subsequent bilateral lower lobe compressive atelectasis. 3. Incidental chronic bony findings and right renal cyst.
[2023-06-09 17:02] VITALS: BP 121/67; PULSE 76; RESP 18
== END 2023-06-09 17:12 | disposition home or self-care (01) ==
LOC: ED 14:25
DX: U07.1 COVID-19 (principal); K44.9 Diaphragmatic hernia without obstruction or gangrene; R06.02 Shortness of breath; R07.9 Chest pain, unspecified; R05.9 Cough, unspecified; I12.9 Hypertensive chronic kidney disease with stage 1 through stage 4 chronic kidney disease, or unspecified chronic kidney disease; N18.9 Chronic kidney disease, unspecified; Z79.52 Long term (current) use of systemic steroids; Z79.899 Other long term (current) drug therapy
CPT/HCPCS: 36000; 36415; 71260; 80053; 83880; 84484; 85025; 93005; 94760; 99284

== ENCOUNTER 2023-08-11 10:22 | Observation (INO) | payer MEDICARE ==
--- NOTE | 2023-08-11 11:03 | ERPHSYRPT ---
- History of Present Illness Time Seen by Provider: 08/11/23 10:30 Source: patient Exam Limitations: no limitations Patient Subjective Stated Complaint: Pt reports she has had a cough/congestion for approx 5 days, over the last two days patient worsened and started experie ncing shortness of breath at rest. Pt states she has been coughing up thick pink tinged flegm since this morning, previously it was white flegm. Triage Nursing Assessment: Pt alert and oriented x3. Respirations easy/nonlabored. Skin w/p/d. Febrile, temp 100.6F. Ambulated to ED cot with assist of cane and 1 staff member. Crackles bilater lobes anterand posterior. Edema to bilat lower extremities. Accompanied by daughter. Physician History: 83-year-old female presents to our ED for evaluation of productive cough and shortness of breath x 2 days. Patient reports her symptoms started 5 days ago with cough and congestion. Upon arrival to our ED patient was observed to be febrile at 100.6. Symptoms have been progressive. Symptoms are moderate in intensity. No specific worsening or improving factors. Patient has a history of COPD. Daughter at bedside. They voiced no other complaints or concerns at this time. Portions of this note were created with voice recognition technology. There may be grammatical, spelling, punctuation or sound alike errors Timing/Duration: day(s) (5 days ago) Activities at Onset: none Severity of Dyspnea-Max: moderate Severity of Dyspnea-Current: mild Possible Cause: unknown cause Modifying Factors: Improves With: activity Associated Symptoms: cough (Productive cough) Allergies/Adverse Reactions: Penicillins Allergy (Mild, Verified 08/11/23 10:36) Rash shakes ibuprofen [From Motrin] Allergy (Unknown, Verified 08/11/23 10:36) Swelling high doses only soy Allergy (Unknown, Verified 08/11/23 10:36) Swelling swell to the point of suffocation aspirin Adverse Reaction (Verified 08/11/23 10:36) Rash pt is on low dose and dose fine. Pt states she brakes out with regular dose asa Home Medications: Iron,Carbonyl [Iron Chews] 65 mg PO DAILY 09/25/14 [History] Multivitamin [Multivitamins] 1 cap PO DAILY 09/25/14 [History] Losartan Potassium 50 mg PO BID 03/06/15 [History] Metoprolol Tartrate 50 mg [Lopressor 50 MG] 100 mg PO BID 01/17/16 [History] Acetaminophen 500 mg [Tylenol Extra Strength 500 mg] 500 mg PO BID PRN PRN 01/16/22 [History] Gabapentin 300 mg PO DAILY 01/16/22 [History] Mecobalamin [B12 Active] 1,000 mg PO DAILY 01/16/22 [History] Montelukast Sodium 10 mg [Singulair 10 MG] 10 mg PO QPM 01/16/22 [History] Potassium Gluconate [Potassium] 595 mg PO UD 01/16/22 [History] Prednisone 5 mg [Deltasone 5 mg] 5 mg PO UD PRN 01/16/22 [History] Amlodipine Besylate 5 mg [Norvasc 5 mg] 10 mg PO DAILY 09/28/22 [History] Docusate Sodium [Colace] 200 mg PO HS 09/28/22 [History] Furosemide [Lasix] 40 mg PO UD PRN 09/28/22 [History] L.acidoph,Paracasei, B.lactis [Probiotic] 1 each PO DAILY 09/28/22 [History] Omeprazole 40 mg PO DAILY 09/28/22 [History] Hx Tetanus, Diphtheria Vaccination/Date Given: Yes Hx Influenza Vaccination/Date Given: Yes Hx Pneumococcal Vaccination/Date Given: Yes Travel Risk - International Travel Have you traveled outside of the country in past 3 weeks: No - Coronavirus Screening Are you exhibiting any of the following symptoms?: Yes Symptoms: Fever, Cough: New Onset, Shortness of Breath, Headaches/Body Aches/Fatigue - Vaccine Status Have you recieved a Covid-19 vaccination: Yes Pouncer Machine: Moderna - Vaccination Dates Date of 2cond Vaccination (if applicable): 10/2020 - Review of Systems Constitutional: No Symptoms, No Fever, No Chills Eyes: No Symptoms Ears, Nose, & Throat: No Symptoms Respiratory: No Symptoms, No Cough, No Dyspnea Cardiac: No Symptoms, No Chest Pain, No Edema, No Syncope Abdominal/Gastrointestinal: No Symptoms, No Abdominal Pain, No Nausea, No Vomiting, No Diarrhea Genitourinary Symptoms: No Symptoms, No Dysuria Musculoskeletal: No Symptoms, No Back Pain, No Neck Pain Skin: No Symptoms, No Rash Neurological: No Symptoms, No Dizziness, No Focal Weakness, No Sensory Changes Psychological: No Symptoms Endocrine: No Symptoms Hematologic/Lymphatic: No Symptoms Immunological/Allergic: No Symptoms All Other Systems: Reviewed and Negative - Past Medical History Pertinent Past Medical History: Yes Neurological History: No Pertinent History ENT History: Cataracts Cardiac History: Hypertension Respiratory History: COPD Endocrine Medical History: No Pertinent History Musculoskeletal History: Fractures, Osteoarthritis, Osteoporosis, Rheumatoid Arthritis, Other GI Medical History: GERD, Hemorrhoids, Hernia, Polyps History: Other Psycho-Social History: No Pertinent History Female Reproductive Disorders: No Pertinent History Other Medical History: RA diagnosis 2014, goes for infusion every [address] Ulrich for "borderline" kidney disease , bladder infections, r hip replacement, partial hysterectomy, double knee replacement. L2 LUMBAR FX. Leaky cardiac valve left side - Past Surgical History Past Surgical History: Yes Neuro Surgical History: No Pertinent History Cardiac: Cardiac Catheterization Respiratory: Lobectomy Gastrointestinal: Appendectomy, Hernia Repair Genitourinary: No Pertinent History Musculoskeletal: Orthopedic Surgery Female Surgical History: Hysterectomy Other Surgical History: ZAHIDA KNEE REPLACEMENTS, knee scopes x4, carpel tunnel x2 R hip replacement november 2020, r upper lobectomy. kyphoplasty January 2023 - Social History Smoking Status: Former smoker How long have you smoked: 1 year Exposure to second hand smoke: No Drug Use: none Patient Lives Alone: No - Nursing Vital Signs Nursing Vital Signs: Initial Vital Signs O2 Sat by Pulse Oximetry 94 L 08/11/23 10:25 Pain Scale Pain Intensity 8 - Physical Exam General Appearance: no apparent distress, alert Eye Exam: PERRL/EOMI Ears, Nose, Throat Exam: hearing grossly normal, normal ENT inspection, normal pharynx Neck Exam: normal inspection, supple Respiratory Exam: diminished breath sounds, rhonchi Cardiovascular/Chest Exam: normal heart sounds, regular rate/rhythm Abdominal/Gastrointestinal Exam: soft, No tenderness, No distention, No mass Extremity Exam: non-tender, normal range of motion, normal inspection, no calf tenderness, no pedal edema Neurologic Exam: alert, oriented x 3, cooperative, 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, sensation nml, No motor deficits Skin Exam: normal color, warm, No dry Lymphatic Exam: No adenopathy SpO2 Interpretation: normal SpO2: 92 O2 Delivery: Room Air - Course Nursing assessment & vital signs reviewed: Yes EKG Interpreted by Me: RATE (80), Sinus Rhythm, NORMAL AXIS, NORMAL INTERVALS Ordered Tests: Active Orders 24 hr Category Date Time Status Reaming Machine Tender STAT Care 08/11/23 11:01 Active EKG-ER Only STAT Care 08/11/23 11:00 Active IV Insertion STAT Care 08/11/23 11:00 Active Pulse Oximetry (ED) STAT Care 08/11/23 11:00 Active CHEST WITH CONTRAST [CT] Stat Exams 08/11/23 12:02 Completed BLOOD CULTURE Stat Lab 08/11/23 12:00 Received CBC W DIFF Stat Lab 08/11/23 11:00 Completed CMP Stat Lab 08/11/23 10:40 Completed D-DIMER QUANTITATIVE Stat Lab 08/11/23 10:40 Completed Lactic Acid Stat Lab 08/11/23 11:04 Completed NT PRO BNPII Stat Lab 08/11/23 Ordered NT PRO BNPII Stat Lab 08/11/23 10:40 Completed Medication Summary Discontinued Medications Generic Name Dose Route Start Last Admin Trade Name Freq PRN Reason Stop Dose Admin Albuterol/Ipratropium 3 ml 08/11/23 11:08 08/11/23 11:21 Ipratropium/Albuterol Sulfate 3 Ml Ampul.Neb IH 08/11/23 11:09 3 ml STAT ONE Administration Albuterol/Ipratropium Confirm 08/11/23 11:20 Ipratropium/Albuterol Sulfate 3 Ml Ampul.Neb Administered 08/11/23 11:21 Dose 3 ml IH .STK-MED ONE Methylprednisolone Sodium 0 mg 08/11/23 11:07 08/11/23 11:14 Succinate 125 mg/ Sterile IV 08/11/23 11:08 125 mg Water 2 ml STAT ONE Administration Azithromycin 500 mg in 250 mls @ 250 mls/hr 08/11/23 11:09 08/11/23 12:58 Zithromax 500 Mg/ 250 Ml Nacl Premix IV 08/11/23 12:08 250 ml/hr STAT STA 250 mls/hr Administration Ceftriaxone Sodium/Dextrose 2 g in 50 mls @ 100 mls/hr 08/11/23 11:09 08/11/23 11:58 Rocephin 2 Gm-D5w 50ml Bag IV 08/11/23 11:38 Infused STAT STA Infusion Ceftriaxone Sodium/Dextrose Confirm 08/11/23 11:22 Rocephin 2 Gm-D5w 50ml Bag Administered 08/11/23 11:23 Dose 2 g in 50 mls @ ud IV .STK-MED ONE Azithromycin Confirm 08/11/23 12:55 Zithromax 500 Mg/ 250 Ml Nacl Premix Administered 08/11/23 12:56 Dose 500 mg in 250 mls @ ud IV .STK-MED ONE Methylprednisolone Sodium Succinate Confirm 08/11/23 11:09 Methylprednis Sod Succ 125 Mg/2 Ml Vial Administered 08/11/23 11:10 Dose 125 mg .ROUTE .STK-MED ONE Sterile Water Confirm 08/11/23 11:09 Water For Injection,Sterile 10 Ml Vial Administered 08/11/23 11:10 Dose 10 ml IJ .STK-MED ONE Lab/Rad Data: Laboratory Result Diagrams 08/11/23 11:00 08/11/23 10:40 Laboratory Results 08/11/23 08/11/23 08/11/23 Range/Units 12:59 12:10 11:04 WBC (4.0-10.5) x10^3/uL RBC (4.1-5.4) x10^6/uL Hgb (12.0-16.0) g/dL Hct (35-47) % MCV (78-100) fL MCH (26-32) pg MCHC (32-36) g/dL RDW (11.5-14.0) % Plt Count (150-450) x10^3/uL MPV (7.5-11.0) fL Gran % (36.0-66.0) % Immature Gran % (Auto) (0.00-0.4) % Nucleat RBC Rel Count (0.00-0.1) % Eos # (Auto) (0-0.5) x10^3/uL Immature Gran # (Auto) (0.00-0.03) x10^3u/L Absolute Lymphs (auto) (1.0-4.6) x10^3/uL Absolute Monos (auto) (0.0-1.3) x10^3/uL Absolute Nucleated RBC (0.00-0.01) x10^3u/L Lymphocytes % (24.0-44.0) % Monocytes % (0.0-12.0) % Eosinophils % (0.00-5.0) % Basophils % (0.0-0.4) % Absolute Granulocytes (1.4-6.9) x10^3/uL Basophils # (0-0.4) x10^3/uL D-Dimer (0.0-0.50) mg/L Sodium (137-145) mmol/L Potassium (3.5-5.1) mmol/L Chloride (98-107) mmol/L Carbon Dioxide (22-30) mmol/L Anion Gap (5-15) MEQ/L BUN (7-17) mg/dL Creatinine (0.52-1.04) mg/dL Estimated GFR ML/MIN Glucose (74-106) mg/dL Lactic Acid 1.7 (0.4-2.0) Calcium (8.4-10.2) mg/dL Total Bilirubin (0.2-1.3) mg/dL AST (14-36) U/L ALT (0-35) U/L Alkaline Phosphatase (38-126) U/L NT-Pro-B Natriuret Pep (<300) pg/mL Serum Total Protein (6.3-8.2) g/dL Albumin (3.5-5.0) g/dL Urine Color YELLOW (YELLOW) Urine Appearance CLEAR (CLEAR) Urine pH 6.0 (5-6) Ur Specific Meredith <=1.005 A (1.005-1.025) POC Urine Protein Conf TRACE A (Negative) Urine Ketones NEGATIVE (NEGATIVE) Urine Nitrite NEGATIVE (NEGATIVE) Urine Bilirubin NEGATIVE (NEGATIVE) Urine Urobilinogen 0.2 (0-1) mg/dL Urine Leukocytes NEGATIVE (NEGATIVE) U Hyaline Cast (Auto) NONE SEEN (0-2) /LPF Urine RBC NEGATIVE (0-5) Renato/ul Urine Microscopic RBC 0-2 (0-5) /HPF Urine Microscopic WBC 0-2 (0-5) /HPF Ur Epithelial Cells None Seen (None Seen) /HPF Urine Bacteria None Seen (None Seen) /HPF Urine Culture Reflexed NO (NO) Urine Glucose NEGATIVE (NEGATIVE) mg/dL Influenza Type A Ag NEGATIVE (NEGATIVE) Influenza Type B Ag NEGATIVE (NEGATIVE) RSV (PCR) POSITIVE (NEGATIVE) SARS-CoV-2 (PCR) NEGATIVE (NEGATIVE) 08/11/23 08/11/23 08/11/23 Range/Units 11:00 10:40 10:40 WBC 5.7 (4.0-10.5) x10^3/uL RBC 3.40 L (4.1-5.4) x10^6/uL Hgb 10.5 L (12.0-16.0) g/dL Hct 33.4 L (35-47) % MCV 98.2 (78-100) fL MCH 30.9 (26-32) pg MCHC 31.4 L (32-36) g/dL RDW 13.4 (11.5-14.0) % Plt Count 169 (150-450) x10^3/uL MPV 10.3 (7.5-11.0) fL Gran % 58.5 (36.0-66.0) % Immature Gran % (Auto) 0.2 (0.00-0.4) % Nucleat RBC Rel Count 0.0 (0.00-0.1) % Eos # (Auto) 0.15 (0-0.5) x10^3/uL Immature Gran # (Auto) 0.01 (0.00-0.03) x10^3u/L Absolute Lymphs (auto) 1.44 (1.0-4.6) x10^3/uL Absolute Monos (auto) 0.73 (0.0-1.3) x10^3/uL Absolute Nucleated RBC 0.00 (0.00-0.01) x10^3u/L Lymphocytes % 25.2 (24.0-44.0) % Monocytes % 12.8 H (0.0-12.0) % Eosinophils % 2.6 (0.00-5.0) % Basophils % 0.7 (0.0-0.4) % Absolute Granulocytes 3.34 (1.4-6.9) x10^3/uL Basophils # 0.04 (0-0.4) x10^3/uL D-Dimer 1.73 H* (0.0-0.50) mg/L Sodium 134 L (137-145) mmol/L Potassium 4.1 (3.5-5.1) mmol/L Chloride 101 (98-107) mmol/L Carbon Dioxide 26 (22-30) mmol/L Anion Gap 11.1 (5-15) MEQ/L BUN 16 (7-17) mg/dL Creatinine 1.25 H (0.52-1.04) mg/dL Estimated GFR 43.3 ML/MIN Glucose 131 H (74-106) mg/dL Lactic Acid (0.4-2.0) Calcium 8.5 (8.4-10.2) mg/dL Total Bilirubin 1.00 (0.2-1.3) mg/dL AST 28 (14-36) U/L ALT 17 (0-35) U/L Alkaline Phosphatase 66 (38-126) U/L NT-Pro-B Natriuret Pep 2550 (<300) pg/mL Serum Total Protein 8.7 H (6.3-8.2) g/dL Albumin 4.0 (3.5-5.0) g/dL Urine Color (YELLOW) Urine Appearance (CLEAR) Urine pH (5-6) Ur Specific Meredith (1.005-1.025) POC Urine Protein Conf (Negative) Urine Ketones (NEGATIVE) Urine Nitrite (NEGATIVE) Urine Bilirubin (NEGATIVE) Urine Urobilinogen (0-1) mg/dL Urine Leukocytes (NEGATIVE) U Hyaline Cast (Auto) (0-2) /LPF Urine RBC (0-5) Renato/ul Urine Microscopic RBC (0-5) /HPF Urine Microscopic WBC (0-5) /HPF Ur Epithelial Cells (None Seen) /HPF Urine Bacteria (None Seen) /HPF Urine Culture Reflexed (NO) Urine Glucose (NEGATIVE) mg/dL Influenza Type A Ag (NEGATIVE) Influenza Type B Ag (NEGATIVE) RSV (PCR) (NEGATIVE) SARS-CoV-2 (PCR) (NEGATIVE) - Progress Progress: improved Air Movement: fair Progress Note: 83-year-old female presents to our ED for evaluation of shortness of breath. Patient was hypoxic upon arrival. Physical exam reveals wheezing coarse breath sounds diminished breath sounds as well. Laboratory workup reveals a normocytic anemia with a hemoglobin of 10. Chronic renal sufficiency. BNP elevated at 2550. D-dimer elevated. No pulmonary congestion observed on CTA chest. CTA chest negative for PE. Incidental large hiatal hernia. Bronchiolitis and a renal cyst observed. Patient will require hospitalization for further evaluation and treatment. Plan of care discussed with patient. She agrees to admission at [facility] for further evaluation and treatment. CTA chest was done with the permission of patient's daughter who is a nurse. Complexity of problems addressed is moderate acute complicated. No critical care time. Complexity of data reviewed and analyzed is extensive. Test ordered test reviewed. Results analyzed and correlated clinically. Case discussed with Dr. Watt at 12:58 PM. Risk of complication and or risk of morbidity/mortality of patient management is high. Patient requires hospitalization for further evaluation and treatment. Patient received nebulizer treatment as well. Vital stable. Time spent to admit patient is approximately 15 minutes. Plan of care established for shared decision making. No social determinants of health present impede follow-up. Portions of this note were created with voice recognition technology. There may be grammatical, spelling, punctuation or sound alike errors 08/11/23 13:25 Blood Culture(s) Obtained: Yes Antibiotics given: Yes Discussed with DrMichael: Other (Alysa) Will see patient in: hospital (observation) Counseled pt/family regarding: lab results, diagnosis, rad results - Departure Departure Disposition: Observation Clinical Impression: Hypoxia, Fever, SOB (shortness of breath), Normocytic anemia, Chronic renal insufficiency, Elevated brain natriuretic peptide (BNP) level, Large hiatal hernia, Bronchiolitis, RSV bronchiolitis, Renal cyst Condition: Stable Critical Care Time: No Referrals: MACIE MENDEZ MD [Primary Care Provider] - Follow up/PCP as directed
[2023-08-11] MEDS ORDERED: solu-MEDROL 125 MG, Sterile H2O 10 ml 2 ML IV ONE ×2 (11:07)
[2023-08-11] MEDS ORDERED: DUONEB 0.5-3 MG/3 ml Neb IH ONE ×2 (11:08→11:20)
[2023-08-11] MEDS ORDERED: Sterile H2O 10 ml IJ ONE (11:09)
[2023-08-11] MEDS ORDERED: ROCEPHIN 2 Gm-D5w 50ML BAG** 2 G/50 ML IVPB IV STA (11:09)
[2023-08-11] MEDS ORDERED: solu-MEDROL ONE (11:09)
[2023-08-11] MEDS ORDERED: Zithromax 500 MG/ 250 ML NaCl Premix 500 MG/250 ML IVPB IV STA (11:09)
[2023-08-11 11:19] LABS: Absolute Neutrophil Ct (ANC) 3.34 x10^3/uL (1.4-6.9); BASOPHIL % 0.7 % (0.0-0.4); Basophil (Absolute #) 0.04 x10^3/uL (0-0.4); Eosinophil % 2.6 % (0.00-5.0); Eosinophil (Absolute #) 0.15 x10^3/uL (0-0.5); Hematocrit 33.4 % (35-47); Hemoglobin 10.5 g/dL (12.0-16.0); IMMATURE GRAN # 0.01 x10^3u/L (0.00-0.03); IMMATURE GRAN % 0.2 % (0.00-0.4); Lymphocyte (Absolute #) 1.44 x10^3/uL (1.0-4.6); Lymphocytes % 25.2 % (24.0-44.0); Mean Cell Volume 98.2 fL (78-100); Mean Corpuscular Hemoglobin 30.9 pg (26-32); Mean Corpuscular Hgb Concent. 31.4 g/dL (32-36); Mean Platelet Volume 10.3 fL (7.5-11.0); Monocyte (Absolute #) 0.73 x10^3/uL (0.0-1.3); Monocytes % 12.8 % (0.0-12.0); Neutrophil % 58.5 % (36.0-66.0); Platelet Count 169 x10^3/uL (150-450); Red Cell Distribution Width 13.4 % (11.5-14.0); White Blood Count 5.7 x10^3/uL (4.0-10.5)
[2023-08-11] MEDS ORDERED: ROCEPHIN 2 Gm-D5w 50ML BAG** 2 G/50 ML IVPB IV ONE (11:22)
[2023-08-11 11:47] LABS: ANION GAP 11.1 MEQ/L (5-15); Calcium 8.5 mg/dL (8.4-10.2); Creatinine 1 1.25 mg/dL (0.52-1.04); EST GLOMERULAR FILTRATION RATE 43.3 ML/MIN; Potassium 4.1 mmol/L (3.5-5.1); Total Protein 8.7 g/dL (6.3-8.2)
[2023-08-11] MEDS ORDERED: Zithromax 500 MG/ 250 ML NaCl Premix 500 MG/250 ML IVPB IV ONE (12:55)
--- NOTE | 2023-08-11 12:57 | XRAY ---
Indication: Short of breath. Elevated d-dimer. Multiple contiguous axial images obtained through the chest using 80 cc Isovue 370 contrast and PE protocol. Comparison: June 09, 2023 Good opacification of the pulmonary arteries including lobar and segmental branches. No pulmonary embolus. Heart borderline enlarged. Aorta is normal in course and caliber. No pathologic mediastinal/hilar lymphadenopathy. Again very large hiatal hernia with intrathoracic stomach. Lungs again hyperinflated with medial left/right lower lobe compressive atelectasis secondary to hiatal hernia and scattered peripheral fibrosis/scarring. Anterior superior left lower lobe and lesser degree anterior left upper lobe demonstrates new small focus [id number]-like opacities favoring bronchiolitis. No consolidation, effusion, pneumothorax. Bony thorax intact again with osteopenia, mild/moderate degenerative changes throughout spine, and L1/L2 vertebroplasty. Limited upper abdomen again demonstrates right renal cysts. Impression: 1. Continued negative pulmonary embolus. 2. New small foci left upper and left lower lobe [id number] opacities favoring bronchiolitis. 3. Again chronic findings including pulmonary fibrosis/scarring, very large hiatal hernia with intrathoracic stomach, chronic bony findings, and right renal cyst.
[2023-08-11 13:08] LABS: Bacteria None Seen /HPF (None Seen); Epithelial Cells None Seen /HPF (None Seen); Hyaline Casts NONE SEEN /LPF (0-2); RBC 0-2 /HPF (0-5); WBC 0-2 /HPF (0-5)
[2023-08-11 13:11] LABS: ADD URINE CULTURE? NO (NO); Appearance CLEAR (CLEAR); Bilirubin NEGATIVE (NEGATIVE); Glucose NEGATIVE (NEGATIVE); Ketones NEGATIVE (NEGATIVE); Nitrite NEGATIVE (NEGATIVE); Protein,Urine Dip TRACE (Negative); RBC NEGATIVE Ery/ul (0-5); Specific Gravity <=1.005 (1.005-1.025); Urobilinogen 0.2 mg/dL (0-1)
[2023-08-11 13:16] LABS: INFLUENZA A NEGATIVE (NEGATIVE); INFLUENZA B NEGATIVE (NEGATIVE); SARS-CoV-2 Xpert Express NEGATIVE (NEGATIVE)
[2023-08-11 13:23] LABS: RESPIRATORY SYNCTIAL VIRUS POSITIVE (NEGATIVE)
--- NOTE | 2023-08-11 15:12 | PCM.HP ---
History of Present Illness - Chief Complaint Chief Complaint: RSV bronchiolitis, hypoxia shortness of breath Date: 08/11/23 History of Present Illness: is a 83 year old female with a pmhx of HTN, CKD (Dr. Ulrich), COPD, histoplasmosis, OA, OP, RA, and GERD who presented to ED 08/11/23 with complaints of a worsening productive cough, wheezing, PND, and shortness of breath for the past two days. Today she states her sputum was pink-tinged. She normally wears 2L of oxygen at night with CPAP at baseline. No sick contacts reported. Denies cp, abdominal pain, FAUST, dizziness, N/V/D. Upon presentation, patient was febrile with temp at 100.6 with spo2 @ 92% on RA. CT of the chest w/contrast is negative for PE. There is a new small foci left upper and left lower lobe qhgy-hc-qhw-like opacities favoring bronchiolitis as well as chronic findings of pulmonary fib rosis/scarring, very large hiatal hernia with intrathoracic stomach, chronic bony findings, and right renal cyst. EKG NS with no ST elevations/deviations. Lab findings remarkable for elevated Ddimer, elevated creat at 1.25 (baseline 1.2-1.4), BNP at 2550, and RSV positive. Patient given DuoNeb treatment, ceftriaxone, azithromycin, and solu-medrol. - Review of Systems Constitutional: Fever, Lethargy Eyes: No Symptoms Ears, Nose, & Throat: Nose Congestion, Nose Discharge, Sinus Drainage Respiratory: Cough, Short Of Breath Cardiac: Edema (BLE) Abdominal/Gastrointestinal: No Symptoms Genitourinary Symptoms: No Symptoms Musculoskeletal: No Symptoms Skin: No Symptoms Neurological: No Symptoms Psychological: No Symptoms Endocrine: No Symptoms Hematologic/Lymphatic: Anemia Immunological/Allergic: No Symptoms Medications & Allergies Home Medications: Home Medication List Iron,Carbonyl [Iron Chews] 65 mg PO DAILY 09/25/14 [History Confirmed 08/11/23] Multivitamin [Multivitamins] 1 cap PO DAILY 09/25/14 [History Confirmed 08/11/23] Losartan Potassium 50 mg PO BID 03/06/15 [History Confirmed 08/11/23] Metoprolol Tartrate 50 mg [Lopressor 50 MG] 100 mg PO BID 01/17/16 [History Confirmed 08/11/23] Gabapentin 300 mg PO DAILY 01/16/22 [History Confirmed 08/11/23] Mecobalamin [B12 Active] 1,000 mg PO DAILY 01/16/22 [History Confirmed 08/11/23] Montelukast Sodium 10 mg [Singulair 10 MG] 10 mg PO QPM 01/16/22 [History Confirmed 08/11/23] Potassium Gluconate [Potassium] 595 mg PO UD 01/16/22 [History Confirmed 08/11/23] Prednisone 5 mg [Deltasone 5 mg] 5 mg PO UD PRN 01/16/22 [History Confirmed 08/11/23] Amlodipine Besylate 5 mg [Norvasc 5 mg] 10 mg PO DAILY 09/28/22 [History Confirmed 08/11/23] Docusate Sodium [Colace] 200 mg PO HS 09/28/22 [History Confirmed 08/11/23] Furosemide [Lasix] 40 mg PO UD PRN 09/28/22 [History Confirmed 08/11/23] Omeprazole 40 mg PO DAILY 09/28/22 [History Confirmed 08/11/23] Bisacodyl 5 mg [Dulcolax 5 mg] 10 mg PO DAILY PRN PRN 10 Days #10 tablet 10/09/22 [Rx Confirmed 08/11/23] Linaclotide [Linzess] 72 mcg PO UD 08/11/23 [History Confirmed 08/11/23] Allergies/Adverse Reactions: Allergies Allergy/AdvReac Type Severity Reaction Status Date / Time Penicillins Allergy Mild Rash Verified 08/11/23 10:36 ibuprofen [From Motrin] Allergy Unknown Swelling Verified 08/11/23 10:36 soy Allergy Unknown Swelling Verified 08/11/23 10:36 aspirin AdvReac Rash Verified 08/11/23 10:36 - Past Medical History Past Medical History: Yes Neurological History: No Pertinent History ENT History: Cataracts Cardiac History: Hypertension Respiratory History: COPD Endocrine Medical History: No Pertinent History Musculoskelatal History: Fractures, Osteoarthritis, Osteoporosis, Rheumatoid Arthritis, Other GI Medical History: GERD, Hemorrhoids, Hernia, Polyps History: Other Pyscho-Social History: No Pertinent History Reproductive Disorders: No Pertinent History Comment: RA diagnosis 2014, goes for infusion every [address] Ulrich for "borderline" kidney disease , bladder infections, r hip replacement, partial hysterectomy, double knee replacement. L2 LUMBAR FX. Leaky cardiac valve left side - Past Surgical History Past Surgical History: Yes Neuro Surgical History: No Pertinent History Cardiac History: Cardiac Catheterization Respiratory Surgery: Lobectomy GI Surgical History: Appendectomy, Hernia Repair Genitourinary Surgical Hx: No Pertinent History Musculskeletal Surgical Hx: Orthopedic Surgery Female Surgical History: Hysterectomy Other Surgical History: ZAHIDA KNEE REPLACEMENTS, knee scopes x4, carpel tunnel x2 R hip replacement november 2020, r upper lobectomy. kyphoplasty January 2023 - Social History Smoking Status: Former smoker How long have you smoked: 1 year Exposure to second hand smoke: No Alcohol: Occasionally Drug Use: none - Physical Exam Vital Signs: Vital Signs - 24 hr Temp Pulse Resp BP BP Pulse Ox 08/11/23 14:01 118/62 08/11/23 13:30 92 L 08/11/23 13:30 78 14 123/70 93 L 08/11/23 13:06 78 26 H 126/64 95 08/11/23 12:00 80 25 H 123/59 93 L 08/11/23 11:48 73 18 127/52 92 L 08/11/23 11:31 75 18 85/44 93 L 08/11/23 11:24 73 18 91 L 08/11/23 11:21 89 L 08/11/23 11:00 73 15 125/60 90 L 08/11/23 10:30 74 26 H 129/57 93 L 08/11/23 10:29 91 L 08/11/23 10:26 100.6 F 81 20 129/57 92 L 08/11/23 10:25 94 L General Appearance: no apparent distress Neurologic Exam: alert, oriented x 3, cooperative Eye Exam: PERRL/EOMI Ears, Nose, Throat Exam: normal ENT inspection Neck Exam: normal inspection Respiratory Exam: crackles/rales, wheezing Cardiovascular Exam: regular rate/rhythm, normal heart sounds Gastrointestinal/Abdomen Exam: soft, normal bowel sounds Pelvic Exam: not done Rectal Exam: deferred Back Exam: normal inspection Extremity Exam: swelling (BLE) Skin Exam: pale Results - Labs Lab/Micro Results: Lab Results-Last 24 Hours 08/11/23 08/11/23 08/11/23 Range/Units 10:40 10:40 11:00 WBC 5.7 (4.0-10.5) x10^3/uL RBC 3.40 L (4.1-5.4) x10^6/uL Hgb 10.5 L (12.0-16.0) g/dL Hct 33.4 L (35-47) % MCV 98.2 (78-100) fL MCH 30.9 (26-32) pg MCHC 31.4 L (32-36) g/dL RDW 13.4 (11.5-14.0) % Plt Count 169 (150-450) x10^3/uL MPV 10.3 (7.5-11.0) fL Gran % 58.5 (36.0-66.0) % Immature Gran % (Auto) 0.2 (0.00-0.4) % Nucleat RBC Rel Count 0.0 (0.00-0.1) % Eos # (Auto) 0.15 (0-0.5) x10^3/uL Immature Gran # (Auto) 0.01 (0.00-0.03) x10^3u/L Absolute Lymphs (auto) 1.44 (1.0-4.6) x10^3/uL Absolute Monos (auto) 0.73 (0.0-1.3) x10^3/uL Absolute Nucleated RBC 0.00 (0.00-0.01) x10^3u/L Lymphocytes % 25.2 (24.0-44.0) % Monocytes % 12.8 H (0.0-12.0) % Eosinophils % 2.6 (0.00-5.0) % Basophils % 0.7 (0.0-0.4) % Absolute Granulocytes 3.34 (1.4-6.9) x10^3/uL Basophils # 0.04 (0-0.4) x10^3/uL D-Dimer 1.73 H* (0.0-0.50) mg/L Sodium 134 L (137-145) mmol/L Potassium 4.1 (3.5-5.1) mmol/L Chloride 101 (98-107) mmol/L Carbon Dioxide 26 (22-30) mmol/L Anion Gap 11.1 (5-15) MEQ/L BUN 16 (7-17) mg/dL Creatinine 1.25 H (0.52-1.04) mg/dL Estimated GFR 43.3 ML/MIN Glucose 131 H (74-106) mg/dL Lactic Acid (0.4-2.0) Calcium 8.5 (8.4-10.2) mg/dL Total Bilirubin 1.00 (0.2-1.3) mg/dL AST 28 (14-36) U/L ALT 17 (0-35) U/L Alkaline Phosphatase 66 (38-126) U/L NT-Pro-B Natriuret Pep 2550 (<300) pg/mL Serum Total Protein 8.7 H (6.3-8.2) g/dL Albumin 4.0 (3.5-5.0) g/dL Urine Color (YELLOW) Urine Appearance (CLEAR) Urine pH (5-6) Ur Specific [place] (1.005-1.025) POC Urine Protein Conf (Negative) Urine Ketones (NEGATIVE) Urine Nitrite (NEGATIVE) Urine Bilirubin (NEGATIVE) Urine Urobilinogen (0-1) mg/dL Urine Leukocytes (NEGATIVE) U Hyaline Cast (Auto) (0-2) /LPF Urine RBC (0-5) Renato/ul Urine Microscopic RBC (0-5) /HPF Urine Microscopic WBC (0-5) /HPF Ur Epithelial Cells (None Seen) /HPF Urine Bacteria (None Seen) /HPF Urine Culture Reflexed (NO) Urine Glucose (NEGATIVE) mg/dL Influenza Type A Ag (NEGATIVE) Influenza Type B Ag (NEGATIVE) RSV (PCR) (NEGATIVE) SARS-CoV-2 (PCR) (NEGATIVE) 08/11/23 08/11/23 08/11/23 Range/Units 11:04 12:10 12:59 WBC (4.0-10.5) x10^3/uL RBC (4.1-5.4) x10^6/uL Hgb (12.0-16.0) g/dL Hct (35-47) % MCV (78-100) fL MCH (26-32) pg MCHC (32-36) g/dL RDW (11.5-14.0) % Plt Count (150-450) x10^3/uL MPV (7.5-11.0) fL Gran % (36.0-66.0) % Immature Gran % (Auto) (0.00-0.4) % Nucleat RBC Rel Count (0.00-0.1) % Eos # (Auto) (0-0.5) x10^3/uL Immature Gran # (Auto) (0.00-0.03) x10^3u/L Absolute Lymphs (auto) (1.0-4.6) x10^3/uL Absolute Monos (auto) (0.0-1.3) x10^3/uL Absolute Nucleated RBC (0.00-0.01) x10^3u/L Lymphocytes % (24.0-44.0) % Monocytes % (0.0-12.0) % Eosinophils % (0.00-5.0) % Basophils % (0.0-0.4) % Absolute Granulocytes (1.4-6.9) x10^3/uL Basophils # (0-0.4) x10^3/uL D-Dimer (0.0-0.50) mg/L Sodium (137-145) mmol/L Potassium (3.5-5.1) mmol/L Chloride (98-107) mmol/L Carbon Dioxide (22-30) mmol/L Anion Gap (5-15) MEQ/L BUN (7-17) mg/dL Creatinine (0.52-1.04) mg/dL Estimated GFR ML/MIN Glucose (74-106) mg/dL Lactic Acid 1.7 (0.4-2.0) Calcium (8.4-10.2) mg/dL Total Bilirubin (0.2-1.3) mg/dL AST (14-36) U/L ALT (0-35) U/L Alkaline Phosphatase (38-126) U/L NT-Pro-B Natriuret Pep (<300) pg/mL Serum Total Protein (6.3-8.2) g/dL Albumin (3.5-5.0) g/dL Urine Color YELLOW (YELLOW) Urine Appearance CLEAR (CLEAR) Urine pH 6.0 (5-6) Ur Specific [place] <=1.005 A (1.005-1.025) POC Urine Protein Conf TRACE A (Negative) Urine Ketones NEGATIVE (NEGATIVE) Urine Nitrite NEGATIVE (NEGATIVE) Urine Bilirubin NEGATIVE (NEGATIVE) Urine Urobilinogen 0.2 (0-1) mg/dL Urine Leukocytes NEGATIVE (NEGATIVE) U Hyaline Cast (Auto) NONE SEEN (0-2) /LPF Urine RBC NEGATIVE (0-5) Renato/ul Urine Microscopic RBC 0-2 (0-5) /HPF Urine Microscopic WBC 0-2 (0-5) /HPF Ur Epithelial Cells None Seen (None Seen) /HPF Urine Bacteria None Seen (None Seen) /HPF Urine Culture Reflexed NO (NO) Urine Glucose NEGATIVE (NEGATIVE) mg/dL Influenza Type A Ag NEGATIVE (NEGATIVE) Influenza Type B Ag NEGATIVE (NEGATIVE) RSV (PCR) POSITIVE (NEGATIVE) SARS-CoV-2 (PCR) NEGATIVE (NEGATIVE) - Radiology Impressions Radiology Exams & Impressions: Radiology Procedures Category Date Time Status CHEST WITH CONTRAST [CT] Stat Exams 08/11/23 12:02 Completed Assessment/Plan (1) COPD with exacerbation Current Visit: No Status: Acute Assessment & Plan: -CT chest with no PE, small foci left upper and left lower lobe [id number]-like opacities favoring bronchiolitis. -RSV positive -Supplemental oxygen with goal spo2 > 92%, 2L at HS CPAP baseline -RT consult -Consider pulm consult if worsening - Duonebs Q4 - Albuterol Q2 PRN - Solumedrol 40mg BID +/- Azithromycin (for anti-inflammatory properties) - Mucinex - Incentive Spirometry - Flutter therapy +/- Flu shot/Prevnar/ Pneumovax shot Code(s): J44.1 - CHRONIC OBSTRUCTIVE PULMONARY DISEASE W (ACUTE) EXACERBATION (2) RSV bronchiolitis Current Visit: Yes Status: Acute Assessment & Plan: -see COPD exacerbation, supportive care Code(s): J21.0 - ACUTE BRONCHIOLITIS DUE TO RESPIRATORY SYNCYTIAL VIRUS (3) Fever Current Visit: Yes Status: Acute Assessment & Plan: -Most likely secondary to RSV infection -WBC wnl -blood cultures pending -UA negative Code(s): R50.9 - FEVER, UNSPECIFIED (4) Normocytic anemia Current Visit: Yes Status: Acute Assessment & Plan: -chronic, will continue to monitor Code(s): D64.9 - ANEMIA, UNSPECIFIED (5) Chronic kidney disease Current Visit: Yes Status: Chronic Assessment & Plan: -Follow with Dr. Ulrich, baseline creat (1.2-1.4) patient at baseline at 1.25 today -Continue to monitor renal/lytes daily -Avoid nephrotoxic medications Code(s): N18.9 - CHRONIC KIDNEY DISEASE, UNSPECIFIED (6) Elevated brain natriuretic peptide (BNP) level Current Visit: Yes Status: Acute Assessment & Plan: -No h/o CHF -No pulmonary congestion noted on CT -Most likely elevated due to COPD exacerbation/infection Code(s): R79.89 - OTHER SPECIFIED ABNORMAL FINDINGS OF BLOOD CHEMISTRY
[2023-08-11] MEDS ORDERED: TYLENOL 325 MG PO PRN (16:01)
[2023-08-11] MEDS ORDERED: Zofran 4 MG/2 ML VIAL IV PRN (16:01)
[2023-08-11] MEDS ORDERED: DUONEB 0.5-3 MG/3 ml Neb IH PRN (16:01)
[2023-08-11] MEDS ORDERED: POTASSIUM GLUCONATE 600 MG PO PRN (16:26)
[2023-08-11] MEDS ORDERED: Lasix 40 MG PO PRN (16:26)
[2023-08-11] MEDS ORDERED: Docusate Sodium 100 MG PO PRN (16:26)
[2023-08-11] MEDS ORDERED: NON-FORMULARY ITEM (Linaclotide [Linzess] 72 MCG Capsule) PO SCH (16:30)
[2023-08-11] MEDS ORDERED: MEDICATION INTERVENTION MC SCH ×2 (16:45)
[2023-08-11] MEDS: ENOXAPARIN SODIUM SQ SCH (16:52)
[2023-08-11] MEDS: Tessalon Perles 100 MG PO PRN (16:52)
[2023-08-11] MEDS: Lopressor 50 MG PO SCH (21:17)
[2023-08-11] MEDS: Mucinex 600MG ER Tabs PO SCH (21:17)
[2023-08-11] MEDS: solu-MEDROL 40 MG, Sterile H2O 10 ml 1 ML IV SCH ×2 (21:17)
[2023-08-11] MEDS: NEURONTIN PO SCH (21:17)
[2023-08-11] MEDS: Cozaar 50 MG PO SCH (21:18)
[2023-08-12 05:16] LABS: Hematocrit 33.2 % (35-47); Hemoglobin 10.7 g/dL (12.0-16.0); Mean Cell Volume 94.6 fL (78-100); Mean Corpuscular Hemoglobin 30.5 pg (26-32); Mean Corpuscular Hgb Concent. 32.2 g/dL (32-36); Mean Platelet Volume 9.9 fL (7.5-11.0); Platelet Count 150 x10^3/uL (150-450); Red Blood Count 3.51 x10^6/uL (4.1-5.4); Red Cell Distribution Width 12.6 % (11.5-14.0); White Blood Count 4.1 x10^3/uL (4.0-10.5)
--- NOTE | 2023-08-12 05:18 | PCM.NOTE ---
Date and Time: 08/12/23 0517 Subjective Assessment: is a 83 year old female with a pmhx of HTN, CKD (Dr. Ulrich), COPD, histoplasmosis, OA, OP, RA, and GERD who presented to ED 08/11/23 with complaints of a worsening productive cough, wheezing, PND, and shortness of breath for the past two days. Today she states her sputum was pink-tinged. She normally wears 2L of oxygen at night with CPAP at baseline. No sick contacts reported. Denies cp, abdominal pain, FAUST, dizziness, N/V/D.Upon presentation, patient was febrile with temp at 100.6 with spo2 @ 92% on RA. CT of the chest w/contrast is negative for PE. There is a new small foci left upper and left lower lobe [id number]-like opacities favoring bronchiolitis as well as chronic findings of pulmonary fibrosis/scarring, very large hiatal hernia with intrathoracic stomach, chronic bony findings, and right renal cyst. EKG NS with no ST elevations/deviations. Lab findings remarkable for elevated Ddimer, elevated creat at 1.25 (baseline 1.2-1.4), BNP at 2550, and RSV positive. Patient given DuoNeb treatment, ceftriaxone, azithromycin, and solu-medrol. 08/12: Met with patient bedside. Endorses continued shortness of breath, wheezing, and productive cough with thick white sputum although symptoms are improved today. Discussed lab findings, creat is now at baseline. Plan is to continue current treatment of azithromycin, and solu-medrol. Most likely will discharge tomorrow. Denies fever,cp, abdominal pain, FAUST, dizziness, N/V/D. - Review of Systems Constitutional: No Symptoms Eyes: No Symptoms Ears, Nose, & Throat: No Symptoms Respiratory: Cough, Short Of Breath Cardiac: No Symptoms Abdominal/Gastrointestinal: No Symptoms Genitourinary Symptoms: No Symptoms Musculoskeletal: No Symptoms Skin: No Symptoms Neurological: No Symptoms Psychological: No Symptoms Endocrine: No Symptoms Objective Exam General Appearance: no apparent distress Neurologic Exam: alert, oriented x 3, cooperative Skin Exam: normal color Eye Exam: PERRL Ears, Nose, Throat Exam: normal ENT inspection Neck Exam: normal inspection Respiratory Exam: wheezing Cardiovascular Exam: regular rate/rhythm, normal heart sounds Gastrointestinal/Abdomen Exam: soft, normal bowel sounds Extremity Exam: normal inspection Back Exam: normal inspection OBJECTIVE DATA Vital Signs: Vital Signs - 24 hr Temp Pulse Resp BP BP Pulse Ox 08/12/23 04:00 97.1 F 72 15 107/60 95 08/12/23 00:00 96.6 F 67 15 122/67 95 08/11/23 19:58 97.1 F 84 25 H 113/60 93 L 08/11/23 18:50 88 18 96 08/11/23 16:28 97.3 F 85 20 143/68 95 08/11/23 16:05 95 08/11/23 15:50 85 20 95 08/11/23 15:38 98.6 F 69 20 131/58 96 08/11/23 14:01 118/62 08/11/23 13:30 92 L 08/11/23 13:30 78 14 123/70 93 L 08/11/23 13:06 78 26 H 126/64 95 08/11/23 12:00 80 25 H 123/59 93 L 08/11/23 11:48 73 18 127/52 92 L 08/11/23 11:31 75 18 85/44 93 L 08/11/23 11:24 73 18 91 L 08/11/23 11:21 89 L 08/11/23 11:00 73 15 125/60 90 L 08/11/23 10:30 74 26 H 129/57 93 L 08/11/23 10:29 91 L 08/11/23 10:26 100.6 F 81 20 129/57 92 L 08/11/23 10:25 94 L Pain Assessment - Last Documented Pain Intensity 0 Intake and Output: Intake & Output 08/09/23 08/10/23 08/11/23 08/12/23 11:59 11:59 11:59 11:59 Intake Total 360 Output Total 1350 Balance -990 Weight 82.3 kg 81.7 kg Lab Results: Lab Results-Last 24 Hours 08/11/23 08/11/23 08/11/23 Range/Units 10:40 10:40 11:00 WBC 5.7 (4.0-10.5) x10^3/uL RBC 3.40 L (4.1-5.4) x10^6/uL Hgb 10.5 L (12.0-16.0) g/dL Hct 33.4 L (35-47) % MCV 98.2 (78-100) fL MCH 30.9 (26-32) pg MCHC 31.4 L (32-36) g/dL RDW 13.4 (11.5-14.0) % Plt Count 169 (150-450) x10^3/uL MPV 10.3 (7.5-11.0) fL Gran % 58.5 (36.0-66.0) % Immature Gran % (Auto) 0.2 (0.00-0.4) % Nucleat RBC Rel Count 0.0 (0.00-0.1) % Eos # (Auto) 0.15 (0-0.5) x10^3/uL Immature Gran # (Auto) 0.01 (0.00-0.03) x10^3u/L Absolute Lymphs (auto) 1.44 (1.0-4.6) x10^3/uL Absolute Monos (auto) 0.73 (0.0-1.3) x10^3/uL Absolute Nucleated RBC 0.00 (0.00-0.01) x10^3u/L Lymphocytes % 25.2 (24.0-44.0) % Monocytes % 12.8 H (0.0-12.0) % Eosinophils % 2.6 (0.00-5.0) % Basophils % 0.7 (0.0-0.4) % Absolute Granulocytes 3.34 (1.4-6.9) x10^3/uL Basophils # 0.04 (0-0.4) x10^3/uL D-Dimer 1.73 H* (0.0-0.50) mg/L Sodium 134 L (137-145) mmol/L Potassium 4.1 (3.5-5.1) mmol/L Chloride 101 (98-107) mmol/L Carbon Dioxide 26 (22-30) mmol/L Anion Gap 11.1 (5-15) MEQ/L BUN 16 (7-17) mg/dL Creatinine 1.25 H (0.52-1.04) mg/dL Estimated GFR 43.3 ML/MIN Glucose 131 H (74-106) mg/dL Lactic Acid (0.4-2.0) Calcium 8.5 (8.4-10.2) mg/dL Total Bilirubin 1.00 (0.2-1.3) mg/dL AST 28 (14-36) U/L ALT 17 (0-35) U/L Alkaline Phosphatase 66 (38-126) U/L NT-Pro-B Natriuret Pep 2550 (<300) pg/mL Serum Total Protein 8.7 H (6.3-8.2) g/dL Albumin 4.0 (3.5-5.0) g/dL Urine Color (YELLOW) Urine Appearance (CLEAR) Urine pH (5-6) Ur Specific [place] (1.005-1.025) POC Urine Protein Conf (Negative) Urine Ketones (NEGATIVE) Urine Nitrite (NEGATIVE) Urine Bilirubin (NEGATIVE) Urine Urobilinogen (0-1) mg/dL Urine Leukocytes (NEGATIVE) U Hyaline Cast (Auto) (0-2) /LPF Urine RBC (0-5) Renato/ul Urine Microscopic RBC (0-5) /HPF Urine Microscopic WBC (0-5) /HPF Ur Epithelial Cells (None Seen) /HPF Urine Bacteria (None Seen) /HPF Urine Culture Reflexed (NO) Urine Glucose (NEGATIVE) mg/dL Influenza Type A Ag (NEGATIVE) Influenza Type B Ag (NEGATIVE) RSV (PCR) (NEGATIVE) SARS-CoV-2 (PCR) (NEGATIVE) 08/11/23 08/11/23 08/11/23 Range/Units 11:04 12:10 12:59 WBC (4.0-10.5) x10^3/uL RBC (4.1-5.4) x10^6/uL Hgb (12.0-16.0) g/dL Hct (35-47) % MCV (78-100) fL MCH (26-32) pg MCHC (32-36) g/dL RDW (11.5-14.0) % Plt Count (150-450) x10^3/uL MPV (7.5-11.0) fL Gran % (36.0-66.0) % Immature Gran % (Auto) (0.00-0.4) % Nucleat RBC Rel Count (0.00-0.1) % Eos # (Auto) (0-0.5) x10^3/uL Immature Gran # (Auto) (0.00-0.03) x10^3u/L Absolute Lymphs (auto) (1.0-4.6) x10^3/uL Absolute Monos (auto) (0.0-1.3) x10^3/uL Absolute Nucleated RBC (0.00-0.01) x10^3u/L Lymphocytes % (24.0-44.0) % Monocytes % (0.0-12.0) % Eosinophils % (0.00-5.0) % Basophils % (0.0-0.4) % Absolute Granulocytes (1.4-6.9) x10^3/uL Basophils # (0-0.4) x10^3/uL D-Dimer (0.0-0.50) mg/L Sodium (137-145) mmol/L Potassium (3.5-5.1) mmol/L Chloride (98-107) mmol/L Carbon Dioxide (22-30) mmol/L Anion Gap (5-15) MEQ/L BUN (7-17) mg/dL Creatinine (0.52-1.04) mg/dL Estimated GFR ML/MIN Glucose (74-106) mg/dL Lactic Acid 1.7 (0.4-2.0) Calcium (8.4-10.2) mg/dL Total Bilirubin (0.2-1.3) mg/dL AST (14-36) U/L ALT (0-35) U/L Alkaline Phosphatase (38-126) U/L NT-Pro-B Natriuret Pep (<300) pg/mL Serum Total Protein (6.3-8.2) g/dL Albumin (3.5-5.0) g/dL Urine Color YELLOW (YELLOW) Urine Appearance CLEAR (CLEAR) Urine pH 6.0 (5-6) Ur Specific [place] <=1.005 A (1.005-1.025) POC Urine Protein Conf TRACE A (Negative) Urine Ketones NEGATIVE (NEGATIVE) Urine Nitrite NEGATIVE (NEGATIVE) Urine Bilirubin NEGATIVE (NEGATIVE) Urine Urobilinogen 0.2 (0-1) mg/dL Urine Leukocytes NEGATIVE (NEGATIVE) U Hyaline Cast (Auto) NONE SEEN (0-2) /LPF Urine RBC NEGATIVE (0-5) Renato/ul Urine Microscopic RBC 0-2 (0-5) /HPF Urine Microscopic WBC 0-2 (0-5) /HPF Ur Epithelial Cells None Seen (None Seen) /HPF Urine Bacteria None Seen (None Seen) /HPF Urine Culture Reflexed NO (NO) Urine Glucose NEGATIVE (NEGATIVE) mg/dL Influenza Type A Ag NEGATIVE (NEGATIVE) Influenza Type B Ag NEGATIVE (NEGATIVE) RSV (PCR) POSITIVE (NEGATIVE) SARS-CoV-2 (PCR) NEGATIVE (NEGATIVE) Radiology Exams: Radiology Procedures Category Date Time Status CHEST WITH CONTRAST [CT] Stat Exams 08/11/23 12:02 Completed Multi-Disciplinary Progress Notes: Multi-Disciplinary Progress Notes 08/11/23 16:30 Pharmacy Note by Adriano Ceron Lovenox dose reduced to 30mg per renal dosing policy. Estimated crcl is 24ml/min. Initialized on 08/11/23 16:30 - END OF NOTE Assessment/Plan (1) COPD with exacerbation Current Visit: No Status: Acute Assessment & Plan: -CT chest with no PE, small foci left upper and left lower lobe jhxq-qj-fqv-like opacities favoring bronchiolitis. -RSV positive -Supplemental oxygen with goal spo2 > 92%, 2L at HS CPAP baseline -RT consult -Consider pulm consult if worsening - Duonebs Q4 - Albuterol Q2 PRN - Solumedrol 40mg BID +/- Azithromycin (for anti-inflammatory properties) - Mucinex - Incentive Spirometry - Flutter therapy +/- Flu shot/Prevnar/ Pneumovax shot 08/12: -Continue current treatment, patient does have home oxygen already set up if she needs to be discharged with oxygen Code(s): J44.1 - CHRONIC OBSTRUCTIVE PULMONARY DISEASE W (ACUTE) EXACERBATION (2) RSV bronchiolitis Current Visit: Yes Status: Acute Assessment & Plan: -see COPD exacerbation, supportive care Code(s): J21.0 - ACUTE BRONCHIOLITIS DUE TO RESPIRATORY SYNCYTIAL VIRUS (3) Fever Current Visit: Yes Status: Acute Assessment & Plan: -Most likely secondary to RSV infection -WBC wnl -blood cultures pending -UA negative 08/12: -resolved Code(s): R50.9 - FEVER, UNSPECIFIED (4) Normocytic anemia Current Visit: Yes Status: Acute Assessment & Plan: -chronic, will continue to monitor Code(s): D64.9 - ANEMIA, UNSPECIFIED (5) Chronic kidney disease Current Visit: Yes Status: Chronic Assessment & Plan: -Follow with Dr. Ulrich, baseline creat (1.2-1.4) patient at baseline at 1.25 today -Continue to monitor renal/lytes daily -Avoid nephrotoxic medications Code(s): N18.9 - CHRONIC KIDNEY DISEASE, UNSPECIFIED (6) Elevated brain natriuretic peptide (BNP) level Current Visit: Yes Status: Acute Assessment & Plan: -No h/o CHF -No pulmonary congestion noted on CT -Most likely elevated due to COPD exacerbation/infection Code(s): J44.1 - CHRONIC OBSTRUCTIVE PULMONARY DISEASE W (ACUTE) EXACERBATION (2) RSV bronchiolitis Current Visit: Yes Status: Acute Code(s): J21.0 - ACUTE BRONCHIOLITIS DUE TO RESPIRATORY SYNCYTIAL VIRUS (3) Fever Current Visit: Yes Status: Acute Code(s): R50.9 - FEVER, UNSPECIFIED (4) Normocytic anemia Current Visit: Yes Status: Acute Code(s): D64.9 - ANEMIA, UNSPECIFIED (5) Chronic kidney disease Current Visit: Yes Status: Chronic Code(s): N18.9 - CHRONIC KIDNEY DISEASE, UNSPECIFIED (6) Elevated brain natriuretic peptide (BNP) level Current Visit: Yes Status: Acute Code(s): R79.89 - OTHER SPECIFIED ABNORMAL FINDINGS OF BLOOD CHEMISTRY
[2023-08-12 05:34] LABS: ALBUMIN 4.1 g/dL (3.5-5.0); ANION GAP 13.1 MEQ/L (5-15); BILIRUBIN,TOTAL 0.5 mg/dL (0.2-1.3); Calcium 8.8 mg/dL (8.4-10.2); Creatinine 1 1.15 mg/dL (0.52-1.04); EST GLOMERULAR FILTRATION RATE 47.9 ML/MIN; Potassium 4.1 mmol/L (3.5-5.1); Total Protein 8.9 g/dL (6.3-8.2)
[2023-08-12] MEDS: Mucinex 600MG ER Tabs PO SCH ×2 (09:46→21:05)
[2023-08-12] MEDS: Cozaar 50 MG PO SCH ×2 (09:46→21:05)
[2023-08-12] MEDS: Protonix 40MG Tablet PO SCH (09:46)
[2023-08-12] MEDS: Vitamin B-12 500 MCG PO SCH (09:46)
[2023-08-12] MEDS: THERAGRAN MULTIVITAMIN PO SCH (09:46)
[2023-08-12] MEDS: NORVASC 5 MG PO SCH (09:47)
[2023-08-12] MEDS: Lopressor 50 MG PO SCH ×2 (09:47→21:05)
[2023-08-12] MEDS: Zithromax 500 MG/ 250 ML NaCl Premix 500 MG/250 ML IVPB IV SCH (09:48)
[2023-08-12] MEDS: ENOXAPARIN SODIUM SQ SCH (09:48)
[2023-08-12] MEDS: solu-MEDROL 40 MG, Sterile H2O 10 ml 1 ML IV SCH ×4 (09:48→21:05)
[2023-08-12] MEDS ORDERED: NON-FORMULARY ITEM (Omeprazole [Omeprazole] 40 MG Capsule.Dr) PO SCH (10:00)
[2023-08-12] MEDS ORDERED: NON-FORMULARY ITEM (Mecobalamin [B12 Active] 1,000 MCG Tab.Chew) PO SCH (10:00)
[2023-08-12] MEDS ORDERED: Singulair 10 MG PO SCH ×2 (10:00→22:00)
[2023-08-12] MEDS ORDERED: ENOXAPARIN SODIUM SQ SCH (10:00)
[2023-08-12] MEDS: Tessalon Perles 100 MG PO PRN (15:26)
[2023-08-12] MEDS: NEURONTIN PO SCH (21:05)
[2023-08-13 03:36] VITALS: RESP 16
[2023-08-13 05:11] LABS: Hematocrit 30.3 % (35-47); Hemoglobin 9.6 g/dL (12.0-16.0); Mean Cell Volume 97.4 fL (78-100); Mean Corpuscular Hemoglobin 30.9 pg (26-32); Mean Corpuscular Hgb Concent. 31.7 g/dL (32-36); Mean Platelet Volume 10.3 fL (7.5-11.0); Platelet Count 150 x10^3/uL (150-450); Red Blood Count 3.11 x10^6/uL (4.1-5.4); Red Cell Distribution Width 12.9 % (11.5-14.0); White Blood Count 8.3 x10^3/uL (4.0-10.5)
--- NOTE | 2023-08-13 05:19 | PCM.DS ---
Discharge Summary Date of Admission: 08/11/23 14:23 Date of Discharge: 08/12/23 Admitting Physician: SAE SANTANA MD Primary Care Provider: MACIE MENDEZ MD Allergies Allergies Penicillins Allergy (Mild, Verified 08/11/23 10:36) Rash shakes ibuprofen [From Motrin] Allergy (Unknown, Verified 08/11/23 10:36) Swelling high doses only soy Allergy (Unknown, Verified 08/11/23 10:36) Swelling swell to the point of suffocation aspirin Adverse Reaction (Verified 08/11/23 10:36) Rash pt is on low dose and dose fine. Pt states she brakes out with regular dose asa Hospital Summary - Hospital Course Hospital Course: is a 83 year old female with a pmhx of HTN, CKD (Dr. Ulrich), COPD, histoplasmosis, OA, OP, RA, and GERD who presented to ED 08/11/23 with complaints of a worsening productive cough, wheezing, PND, and shortness of breath for the past two days. Today she states her sputum was pink-tinged. She normally wears 2L of oxygen at night with CPAP at baseline. No sick contacts reported. Denies cp, abdominal pain, FAUST, dizziness, N/V/D.Upon presentation, patient was febrile with temp at 100.6 with spo2 @ 92% on RA. CT of the chest w/contrast is negative for PE. There is a new small foci left upper and left lower lobe phpq-ma-day-like opacities favoring bronchiolitis as well as chronic findings of pulmonary fibrosis/scarring, very large hiatal hernia with intrathoracic stomach, chronic bony findings, and right renal cyst. EKG NS with no ST elevations/deviations. Lab findings remarkable for elevated Ddimer, elevated creat at 1.25 (baseline 1.2-1.4), BNP at 2550, and RSV positive. Patient given DuoNeb treatment, ceftriaxone, azithromycin, and solu-medrol. Patient with COPD admitted with cough and dyspnea. She is positive for RSV. During hospital course patient treated with azithromycin/solumedrol/supportive therapies. Cough and dyspnea have improved. Continue home oxygen. Will discharge with steroids, antibiotics and bronchodilators (patient has at home). Patient agrees with plan and is ready for discharge with close follow up with PCP. Discharge Note New Diagnosis: RSV/bronchiolitis New Medications: zithromax/prednisone Follow Up: PCP Latest Assessment & Plan -CT chest with no PE, small foci left upper and left lower lobe hiwu-eg-[id number]-like opacities favoring bronchiolitis. -RSV positive -Supplemental oxygen with goal spo2 > 92%, 2L at HS CPAP baseline -RT consult -Consider pulm consult if worsening - Duonebs Q4 - Albuterol Q2 PRN - Solumedrol 40mg BID +/- Azithromycin (for anti-inflammatory properties) - Mucinex - Incentive Spirometry - Flutter therapy +/- Flu shot/Prevnar/ Pneumovax shot 08/12: -Continue current treatment, patient does have home oxygen already set up if she needs to be discharged with oxygen Code(s): J44.1 - CHRONIC OBSTRUCTIVE PULMONARY DISEASE W (ACUTE) EXACERBATION (2) RSV bronchiolitis Current Visit: Yes Status: Acute Assessment & Plan: -see COPD exacerbation, supportive care Code(s): J21.0 - ACUTE BRONCHIOLITIS DUE TO RESPIRATORY SYNCYTIAL VIRUS (3) Fever Current Visit: Yes Status: Acute Assessment & Plan: -Most likely secondary to RSV infection -WBC wnl -blood cultures pending -UA negative 08/12: -resolved Code(s): R50.9 - FEVER, UNSPECIFIED (4) Normocytic anemia Current Visit: Yes Status: Acute Assessment & Plan: -chronic, will continue to monitor Code(s): D64.9 - ANEMIA, UNSPECIFIED (5) Chronic kidney disease Current Visit: Yes Status: Chronic Assessment & Plan: -Follow with Dr. Ulrich, baseline creat (1.2-1.4) patient at baseline at 1.25 today -Continue to monitor renal/lytes daily -Avoid nephrotoxic medications Code(s): N18.9 - CHRONIC KIDNEY DISEASE, UNSPECIFIED (6) Elevated brain natriuretic peptide (BNP) level Current Visit: Yes Status: Acute Assessment & Plan: -No h/o CHF -No pulmonary congestion noted on CT -Most likely elevated due to COPD exacerbation/infection I spent 35 minutes [id number] with the patient on the day of discharge perfo rming discharge exam, discussing hospital stay and discharge instructions with patient and caregivers, preparation of discharge records, prescriptions & referral forms and addressing any questions/concerns the patient had as documented above. - Vitals & Intake/Output Vital Signs: Vital Signs Temperature 96.5 F 08/13/23 03:34 Pulse Rate 68 08/13/23 03:34 Respiratory Rate 16 08/13/23 03:34 Blood Pressure 119/64 08/13/23 03:34 O2 Sat by Pulse Oximetry 94 L 08/13/23 03:34 Intake & Output: Intake & Output 08/10/23 08/11/23 08/12/23 08/13/23 11:59 11:59 11:59 11:59 Intake Total 720 1050 Output Total 1850 1200 Balance -1130 -150 Weight 82.3 kg 81.7 kg - Lab Result Diagrams: 08/13/23 04:51 08/13/23 04:51 Lab Results-Last 24 Hrs: Lab Results-Last 24 Hours 08/12/23 08/12/23 08/13/23 Range/Units 05:05 05:05 04:51 WBC 4.1 8.3 (4.0-10.5) x10^3/uL RBC 3.51 L 3.11 L (4.1-5.4) x10^6/uL Hgb 10.7 L 9.6 L (12.0-16.0) g/dL Hct 33.2 L 30.3 L (35-47) % MCV 94.6 97.4 (78-100) fL MCH 30.5 30.9 (26-32) pg MCHC 32.2 31.7 L (32-36) g/dL RDW 12.6 12.9 (11.5-14.0) % Plt Count 150 150 (150-450) x10^3/uL MPV 9.9 10.3 (7.5-11.0) fL Sodium 134 L (137-145) mmol/L Potassium 4.1 (3.5-5.1) mmol/L Chloride 103 (98-107) mmol/L Carbon Dioxide 22 (22-30) mmol/L Anion Gap 13.1 (5-15) MEQ/L BUN 22 H (7-17) mg/dL Creatinine 1.15 H (0.52-1.04) mg/dL Estimated GFR 47.9 ML/MIN Glucose 157 H (74-106) mg/dL Calcium 8.8 (8.4-10.2) mg/dL Total Bilirubin 0.50 (0.2-1.3) mg/dL AST 28 (14-36) U/L ALT 18 (0-35) U/L Alkaline Phosphatase 69 (38-126) U/L Serum Total Protein 8.9 H (6.3-8.2) g/dL Albumin 4.1 (3.5-5.0) g/dL - Radiology Exams Ordered Rad Exams-Entire Visit: Radiology Procedures Category Date Time Status CHEST WITH CONTRAST [CT] Stat Exams 08/11/23 12:02 Completed - Procedures and Test Procedures and Tests throughout Hospitalization: Therapy Orders & Screens 08/11/23 15:50 RT Screen per Nursing Assess ONCE Comment: Protocol Order Physician Instructions: Greater than 3 points order RT Admission Screen Reason For Exam: Triggered on Admission Diagnosis: RSV bronchiolitis, hypoxia shortness of breath Diagnosis: RSV bronchiolitis, hypoxia shortness of breath Pneumonia: No Home O2: Yes: WITH CPAP 2.5 L Asthma: No CHF: No Home CPAP/BIPAP: Yes Total Points: 10 08/11/23 16:01 Respiratory Therapy Consult ONCE Comment: Reason For Exam: Diagnosis: RSV bronchiolitis, hypoxia shortness of breath 08/11/23 16:13 FLUTTER [Flutter Therapy] UD Comment: Diagnosis: RSV bronchiolitis, hypoxia shortness of breath Incentive Spirometry ROUTINE Comment: Diagnosis: RSV bronchiolitis, hypoxia shortness of breath 08/11/23 16:23 Oxygen NASAL CANNULA 2 lpm Comment: Diagnosis: RSV bronchiolitis, hypoxia shortness of breath 08/11/23 21:33 BiPap/CPAP ROUTINE Comment: Diagnosis: RSV bronchiolitis, hypoxia shortness of breath Discharge Exam General Appearance: no apparent distress Neurologic Exam: alert, oriented x 3, cooperative Eye Exam: PERRL Ears, Nose, Throat Exam: normal ENT inspection Neck Exam: normal inspection Respiratory Exam: crackles/rales, wheezing Cardiovascular Exam: regular rate/rhythm, normal heart sounds Gastrointestinal/Abdomen Exam: soft, normal bowel sounds Pelvic Exam: deferred Rectal Exam: deferred Back Exam: normal inspection Extremity Exam: normal inspection Skin Exam: normal color Final Diagnosis/Problem List - Final Discharge Diagnosis/Problem (1) COPD with exacerbation Current Visit: No Status: Acute Code(s): J44.1 - CHRONIC OBSTRUCTIVE PULMONARY DISEASE W (ACUTE) EXACERBATION (2) RSV bronchiolitis Current Visit: Yes Status: Acute Code(s): J21.0 - ACUTE BRONCHIOLITIS DUE TO RESPIRATORY SYNCYTIAL VIRUS (3) Fever Current Visit: Yes Status: Acute Code(s): R50.9 - FEVER, UNSPECIFIED (4) Normocytic anemia Current Visit: Yes Status: Acute Code(s): D64.9 - ANEMIA, UNSPECIFIED (5) Chronic kidney disease Current Visit: Yes Status: Chronic Code(s): N18.9 - CHRONIC KIDNEY DISEASE, UNSPECIFIED (6) Elevated brain natriuretic peptide (BNP) level Current Visit: Yes Status: Acute Code(s): R79.89 - OTHER SPECIFIED ABNORMAL FINDINGS OF BLOOD CHEMISTRY - Discharge Disposition: Home, Self-Care Condition: Stable Prescriptions: New Azithromycin [Azithromycin 250 mg Pack] 250 mg PO UD 5 Days #6 tablet Prednisone 20 mg [Deltasone 20 mg] 20 mg PO BID 5 Days #10 tablet Albuterol/Ipratropium 3ml Neb* [DUONEB 0.5-3 MG/3 ml Neb] 3 ml IH Q6HPRN PRN PRN Reason: Shortness Of Breath/Wheezing PANTOPRAZOLE 40 mg Tablet [Protonix 40MG Tablet] 40 mg PO DAILY 30 Days #30 tablet Continue Iron,Carbonyl [Iron Chews] 65 mg PO UD Multivitamin [Multivitamins] 1 tab PO DAILY Losartan Potassium 50 mg PO BID Metoprolol Tartrate 50 mg [Lopressor 50 MG] 100 mg PO BID Mecobalamin [B12 Active] 1,000 mg PO DAILY Montelukast Sodium 10 mg [Singulair 10 MG] 10 mg PO DAILY Potassium Gluconate [Potassium] 595 mg PO DAILY PRN PRN PRN Reason: EDEMA Gabapentin 300 mg PO HS Furosemide [Lasix] 40 mg PO DAILY PRN PRN PRN Reason: SWELLING Omeprazole 40 mg PO DAILY Docusate Sodium [Colace] 100 mg PO HSPRN PRN PRN Reason: Constipation Amlodipine Besylate 5 mg [Norvasc 5 mg] 10 mg PO DAILY Bisacodyl 5 mg [Dulcolax 5 mg] 10 mg PO DAILY PRN PRN 10 Days #10 tablet PRN Reason: Constipation Linaclotide [Linzess] 72 mcg PO UD Discontinued Prednisone 5 mg [Deltasone 5 mg] 5 mg PO UD PRN PRN Reason: rheumatoid Instructions: Oxygen Therapy, Adult (DC), Respiratory Syncytial Virus, Adult (DC), Pulse Oximetry Follow up with: PRISCILLA ULRICH [CONSULTING PHYSICIAN] - 08/27/23 11:00 am ([place] Office) MACIE MENDEZ MD [Primary Care Provider] - 08/25/23 3:45 pm ([facility]) Forms: Discharge Instructions
[2023-08-13 05:26] LABS: ALBUMIN 3.5 g/dL (3.5-5.0); ANION GAP 11.6 MEQ/L (5-15); BILIRUBIN,TOTAL 0.2 mg/dL (0.2-1.3); Calcium 8.3 mg/dL (8.4-10.2); Creatinine 1 0.99 mg/dL (0.52-1.04); EST GLOMERULAR FILTRATION RATE 57.3 ML/MIN; Potassium 4.5 mmol/L (3.5-5.1); Total Protein 7.7 g/dL (6.3-8.2)
[2023-08-13] MEDS ORDERED: FEOSOL 325 MG PO SCH (10:00)
[2023-08-13] MEDS ORDERED: DELTASONE 20 MG PO SCH (10:00)
[2023-08-13] MEDS: THERAGRAN MULTIVITAMIN PO SCH (10:13)
[2023-08-13] MEDS: Tessalon Perles 100 MG PO PRN (10:13)
[2023-08-13] MEDS: Protonix 40MG Tablet PO SCH (10:13)
[2023-08-13] MEDS: Vitamin B-12 500 MCG PO SCH (10:13)
[2023-08-13] MEDS: Cozaar 50 MG PO SCH (10:13)
[2023-08-13] MEDS: Lopressor 50 MG PO SCH (10:14)
[2023-08-13] MEDS: Mucinex 600MG ER Tabs PO SCH (10:14)
[2023-08-13] MEDS: ENOXAPARIN SODIUM SQ SCH (10:14)
[2023-08-13] MEDS: Zithromax 500 MG/ 250 ML NaCl Premix 500 MG/250 ML IVPB IV SCH (10:14)
[2023-08-13] MEDS: NORVASC 5 MG PO SCH (10:14)
[2023-08-13 11:05] VITALS: BP 120/56; PULSE 89; TEMP 97.6; O2SAT 96
[2023-08-13 15:10] LABS: Albumin 3.3 g/dL (2.9-4.4); Alpha-1-Globulin 0.3 g/dL (0.0-0.4); Alpha-2-Globulin 0.9 g/dL (0.4-1.0); Protein, Total 8.1 g/dL (6.0-8.5)
== END 2023-08-13 13:05 | disposition home or self-care (01) ==
LOC: ED 10:22 → MED SURG 14:23
PROVIDERS: ADMIT Internal Medicine; ATTEND Internal Medicine
DX: J44.1 Chronic obstructive pulmonary disease with (acute) exacerbation (principal); J21.0 Acute bronchiolitis due to respiratory syncytial virus; R50.9 Fever, unspecified; D64.9 Anemia, unspecified; I12.9 Hypertensive chronic kidney disease with stage 1 through stage 4 chronic kidney disease, or unspecified chronic kidney disease; N18.9 Chronic kidney disease, unspecified; R79.89 Other specified abnormal findings of blood chemistry; R60.0 Localized edema; Z79.899 Other long term (current) drug therapy; Z20.828 Contact with and (suspected) exposure to other viral communicable diseases
CPT/HCPCS: 0241U; 36000; 36415; 71260; 80053; 81015; 83521; 83605; 83880; 84165; 85025; 85027; 85379; 87040; 93005; 93041; 93268; 94640; 94667; 94760; 94762; 96365; 96374; 99284; G0378; Q3014; J0456; J0696; J1650; J2920; J2930; A9270-GY

== ENCOUNTER 2024-12-09 21:07 | Observation (INO) | payer MEDICARE ==
--- NOTE | 2024-12-09 21:18 | ERPHSYRPT ---
- History of Present Illness Time Seen by Provider: 12/09/24 21:15 Physician History: 84yo f pmhx htn presents via private vehicle for chest pain. Pt reports the pain is retrosternal in nature, does not radiate to the back, jaw or shoulder. Pt reports the pain started around 8pm (1h [employer]). Pt reports she took a nitro at home that initially helped, reports that this gave her a headache. Pt currently reports some mild chest discomfort. Pt denies any fevers, sweating, nausea. Pt does endorse some chills. Pt does not report any prior hx of ND. Pt does endorse hx of hiatal hernia that frequently causes her epigastric discomfort. Pt endorses some tingling in her left hand that she reports is not normal for her, does report hx of RA which causes her to have achey joints and some sensory skin changes periodically at times, reports this feels different. Timing/Duration: today, sudden Activities at Onset: none Quality: sharpness Location: substernal Chest Pain Radiation: no radiation Severity of Pain-Max: moderate Severity of Pain-Current: mild Modifying Factors: Improves With: nitroglycerin Associated Symptoms: No nausea, No vomiting, No palpitations Prior Chest Pain/Cardiac Workup: no prior chest pain Nitro Today/Relief: 0.4 mg x 1 Aspirin Treatment Today: no aspirin today Allergies/Adverse Reactions: Penicillins Allergy (Mild, Verified 12/09/24 21:56) Rash shakes ibuprofen [From Motrin] Allergy (Unknown, Verified 12/09/24 21:56) Swelling high doses only soy Allergy (Unknown, Verified 12/09/24 21:56) Swelling swell to the point of suffocation aspirin Adverse Reaction (Verified 12/09/24 21:56) Rash pt is on low dose and dose fine. Pt states she brakes out with regular dose asa Home Medications: Iron,Carbonyl [Iron Chews] 65 mg PO UD 09/25/14 [History] Multivitamin [Multivitamins] 1 tab PO DAILY 09/25/14 [History] Losartan Potassium 50 mg PO BID 03/06/15 [History] Metoprolol Tartrate 50 mg [Lopressor 50 MG] 100 mg PO BID 01/17/16 [History] Gabapentin 300 mg PO HS 01/16/22 [History] Mecobalamin [B12 Active] 1,000 mg PO DAILY 01/16/22 [History] Montelukast Sodium 10 mg [Singulair 10 MG] 10 mg PO DAILY 01/16/22 [History] Furosemide [Lasix] 40 mg PO DAILY PRN PRN 09/28/22 [History] Omeprazole 40 mg PO DAILY 09/28/22 [History] Linaclotide [Linzess] 72 mcg PO UD 08/11/23 [History] Hx Tetanus, Diphtheria Vaccination/Date Given: Yes Hx Influenza Vaccination/Date Given: Yes Hx Pneumococcal Vaccination/Date Given: Yes - Review of Systems Constitutional: Chills, No Fever, No Fatigue Respiratory: No Symptoms Cardiac: Chest Pain, Edema, No Palpitations, No Syncope Abdominal/Gastrointestinal: No Symptoms Genitourinary Symptoms: No Symptoms - Past Medical History Pertinent Past Medical History: Yes Neurological History: No Pertinent History ENT History: Cataracts Cardiac History: Hypertension Respiratory History: COPD Endocrine Medical History: No Pertinent History Musculoskeletal History: Fractures, Osteoarthritis, Osteoporosis, Rheumatoid Arthritis, Other GI Medical History: GERD, Hemorrhoids, Hernia, Polyps History: Other Psycho-Social History: No Pertinent History Female Reproductive Disorders: No Pertinent History Other Medical History: RA diagnosis 2014, goes for infusion every [address] Ulrich for "borderline" kidney disease , bladder infections, r hip replacement, partial hysterectomy, double knee replacement. L2 LUMBAR FX. Leaky cardiac valve left side - Past Surgical History Past Surgical History: Yes Neuro Surgical History: No Pertinent History Cardiac: Cardiac Catheterization Respiratory: Lobectomy Gastrointestinal: Appendectomy, Hernia Repair Genitourinary: No Pertinent History Musculoskeletal: Orthopedic Surgery Female Surgical History: Hysterectomy Other Surgical History: ZAHIDA KNEE REPLACEMENTS, knee scopes x4, carpel tunnel x2 R hip replacement november 2020, r upper lobectomy. kyphoplasty January 2023 - Social History Smoking Status: Former smoker How long have you smoked: 1 year Exposure to second hand smoke: No Drug Use: none - Social Determinants of Health Will the patient participate in the screening: Declined to provide - Nursing Vital Signs Nursing Vital Signs: Initial Vital Signs Pulse Rate 105 H 12/09/24 21:07 Respiratory Rate 22 12/09/24 21:07 Blood Pressure 143/79 12/09/24 21:07 O2 Sat by Pulse Oximetry 93 L 12/09/24 21:07 Pain Scale Pain Intensity 0 - Physical Exam General Appearance: no apparent distress, alert Neck Exam: normal inspection, non-tender, supple Respiratory Exam: normal breath sounds, lungs clear, airway intact, No chest tenderness, No respiratory distress, No rhonchi, No wheezing, No stridor Cardiovascular Exam: regular rate/rhythm, normal heart sounds, normal peripheral pulses, capillary refill <2 sec, edema (+2 b/l LE edema) Gastrointestinal/Abdomen Exam: soft, normal bowel sounds, tenderness (minimal TTP in epigastric region), No distention Neurologic Exam: alert, oriented x 3, cooperative Skin Exam: normal color, warm, dry SpO2 Interpretation: normal SpO2: 95 O2 Delivery: Room Air - Course EKG Interpreted by Me: RATE (77), Sinus Rhythm, Left Bundle Branch Block, Non- specific ST Changes, Other (PAC, not suggestive of acute ischemia, QRS progression differs from prior in 2022) Ordered Tests: Active Orders 24 hr Category Date Time Status EKG-ER Only STAT Care 12/09/24 21:18 Active Oxygen-ED Only Nasal Cannula 2 lpm Care 12/09/24 21:34 Active CHEST 1 VIEW (PORTABLE) Stat Exams 12/09/24 21:18 Taken CBC W DIFF Stat Lab 12/09/24 21:23 Completed CMP Stat Lab 12/09/24 21:23 Completed NT PRO BNPII Stat Lab 12/09/24 21:23 Completed PROCALCITONIN Stat Lab 12/09/24 22:08 Completed PROTIME WITH INR Stat Lab 12/09/24 21:23 Completed PTT Stat Lab 12/09/24 21:23 Completed TROPONIN Q4H Lab 12/09/24 21:23 Completed TROPONIN Q4H Lab 12/09/24 23:23 Completed TROPONIN Q4H Lab 12/10/24 05:30 Ordered Medication Summary Discontinued Medications Generic Name Dose Route Start Last Admin Trade Name Freq PRN Reason Stop Dose Admin Morphine Sulfate 1 mg 12/09/24 21:27 12/09/24 21:31 Morphine Sulfate 2 Mg/Ml Inj IV 12/09/24 21:28 1 mg STAT ONE Administration Morphine Sulfate Confirm 12/09/24 21:30 Morphine Sulfate 2 Mg/Ml Inj Administered 12/09/24 21:31 Dose 2 mg .ROUTE .STK-MED ONE Nitroglycerin 0.4 mg 12/09/24 21:18 12/09/24 22:20 Nitroglycerin 0.4 Mg (Ed) 0.4 Mg Tab.Subl SL 12/09/24 21:19 Not Given STAT ONE Lab/Rad Data: Laboratory Result Diagrams 12/09/24 21:23 12/09/24 21:23 Laboratory Results 12/09/24 12/09/24 12/09/24 Range/Units 23:23 22:08 21:23 WBC (3.98-10.04) x10^3/uL RBC (3.93-5.22) x10^6/uL Hgb (11.2-15.7) g/dL Hct (34.1-44.9) % MCV (79.4-94.8) fL MCH (25.6-32.2) pg MCHC (32.2-35.5) g/dL RDW (11.7-14.4) % Plt Count (182-369) x10^3/uL MPV (9.4-12.3) fL Gran % (34.0-71.1) % Immature Gran % (Auto) (0.001-0.429) % Nucleat RBC Rel Count (0.00-0.2) % Eos # (Auto) (0.04-0.36) x10^3/uL Immature Gran # (Auto) (0.001-0.031) x10^3u/L Absolute Lymphs (auto) (1.18-3.74) x10^3/uL Absolute Monos (auto) (0.24-0.86) x10^3/uL Absolute Nucleated RBC (0.00-0.012) x10^3u/L Lymphocytes % (19.3-51.7) % Monocytes % (4.7-12.5) % Eosinophils % (0.7-5.8) % Basophils % (0.1-1.2) % Absolute Granulocytes (1.56-6.13) x10^3/uL Basophils # (0.01-0.08) x10^3/uL PT (9.4-12.5) SECONDS INR (0.8-3.0) APTT (25.1-36.5) SECONDS Sodium (135-145) mmol/L Potassium (3.5-5.1) mmol/L Chloride (98-107) mmol/L Carbon Dioxide (22-30) mmol/L Anion Gap (5-15) MEQ/L BUN (7-17) mg/dL Creatinine (0.52-1.04) mg/dL Estimated GFR ML/MIN Glucose (74-106) mg/dL Calcium (8.4-10.2) mg/dL Total Bilirubin (0.2-1.3) mg/dL AST (14-36) U/L ALT (0-35) U/L Alkaline Phosphatase (38-126) U/L Troponin I < 0.012 < 0.012 (0.000-0.033) ng/mL NT-Pro-B Natriuret Pep 613 (<300) pg/mL Serum Total Protein (6.3-8.2) g/dL Albumin (3.5-5.0) g/dL Procalcitonin 0.041 (0.030-0.080) ng/mL 12/09/24 12/09/24 12/09/24 Range/Units 21:23 21:23 21:23 WBC 7.3 (3.98-10.04) x10^3/uL RBC 3.40 L (3.93-5.22) x10^6/uL Hgb 10.6 L (11.2-15.7) g/dL Hct 31.9 L (34.1-44.9) % MCV 93.8 (79.4-94.8) fL MCH 31.2 (25.6-32.2) pg MCHC 33.2 (32.2-35.5) g/dL RDW 12.2 (11.7-14.4) % Plt Count 184 (182-369) x10^3/uL MPV 9.7 (9.4-12.3) fL Gran % 32.7 L (34.0-71.1) % Immature Gran % (Auto) 0.1 (0.001-0.429) % Nucleat RBC Rel Count 0.0 (0.00-0.2) % Eos # (Auto) 0.29 (0.04-0.36) x10^3/uL Immature Gran # (Auto) 0.01 (0.001-0.031) x10^3u/L Absolute Lymphs (auto) 3.81 H (1.18-3.74) x10^3/uL Absolute Monos (auto) 0.74 (0.24-0.86) x10^3/uL Absolute Nucleated RBC 0.00 (0.00-0.012) x10^3u/L Lymphocytes % 52.3 H (19.3-51.7) % Monocytes % 10.2 (4.7-12.5) % Eosinophils % 4.0 (0.7-5.8) % Basophils % 0.7 (0.1-1.2) % Absolute Granulocytes 2.39 (1.56-6.13) x10^3/uL Basophils # 0.05 (0.01-0.08) x10^3/uL PT 9.9 (9.4-12.5) SECONDS INR 0.90 (0.8-3.0) APTT 24.4 L (25.1-36.5) SECONDS Sodium 141 (135-145) mmol/L Potassium 4.4 (3.5-5.1) mmol/L Chloride 105 (98-107) mmol/L Carbon Dioxide 26 (22-30) mmol/L Anion Gap 15.2 H (5-15) MEQ/L BUN 14 (7-17) mg/dL Creatinine 1.23 H (0.52-1.04) mg/dL Estimated GFR 43.9 ML/MIN Glucose 116 H (74-106) mg/dL Calcium 9.1 (8.4-10.2) mg/dL Total Bilirubin 0.50 (0.2-1.3) mg/dL AST 32 (14-36) U/L ALT 20 (0-35) U/L Alkaline Phosphatase 64 (38-126) U/L Troponin I (0.000-0.033) ng/mL NT-Pro-B Natriuret Pep (<300) pg/mL Serum Total Protein 8.3 H (6.3-8.2) g/dL Albumin 4.2 (3.5-5.0) g/dL Procalcitonin (0.030-0.080) ng/mL - Progress Progress: improved Air Movement: fair Progress Note: 12/09/24 21:44 pt reports ckd - reports she cannot take aspirin will give dose of morphine 1mg for discomfort ekg showing LBBB, ekg does appear different from previous in our system HEART score 5 12/09/24 22:24 initial trop negative chest pain improved w/ morphine, pt resting comfortably 12/09/24 22:26 cxr not suggestive of acute process 12/10/24 00:00 trop negative x 2 plan to admit for obs for completion of chest pain rule out 12/10/24 00:07 I spoke w/ Dr Ramon Campos (hospitalist) who is willing to accept pt for obs Blood Culture(s) Obtained: No Antibiotics given: No Will see patient in: hospital (observation) Counseled pt/family regarding: lab results, diagnosis, need for follow-up, rad results Medical Desision Making - Diagnostic Testing Diagnostic test were ordered, analyzed, and reviewed by me: Yes Radiological Interpretation: Interpreted by me, Reviewed by me - Risk of complications The pt has a high risk of morbidity or mortality based on: Decision regarding hospitilization or escalation of hosp level of care - Departure Departure Disposition: Observation Clinical Impression: Chest pain Qualifiers: Chest pain type: unspecified Qualified Code(s): R07.9 - Chest pain, unspecified Condition: Stable Critical Care Time: No Referrals: MACIE MENDEZ MD [Primary Care Provider, INTERNAL MEDICINE] - Follow up/PCP as directed
[2024-12-09 21:27] LABS: Absolute Neutrophil Ct (ANC) 2.39 x10^3/uL (1.56-6.13); BASOPHIL % 0.7 % (0.1-1.2); Basophil (Absolute #) 0.05 x10^3/uL (0.01-0.08); Eosinophil (Absolute #) 0.29 x10^3/uL (0.04-0.36); Hematocrit 31.9 % (34.1-44.9); Hemoglobin 10.6 g/dL (11.2-15.7); IMMATURE GRAN # 0.01 x10^3u/L (0.001-0.031); IMMATURE GRAN % 0.1 % (0.001-0.429); Lymphocyte (Absolute #) 3.81 x10^3/uL (1.18-3.74); Lymphocytes % 52.3 % (19.3-51.7); Mean Cell Volume 93.8 fL (79.4-94.8); Mean Corpuscular Hemoglobin 31.2 pg (25.6-32.2); Mean Corpuscular Hgb Concent. 33.2 g/dL (32.2-35.5); Mean Platelet Volume 9.7 fL (9.4-12.3); Monocyte (Absolute #) 0.74 x10^3/uL (0.24-0.86); Monocytes % 10.2 % (4.7-12.5); Neutrophil % 32.7 % (34.0-71.1); Platelet Count 184 x10^3/uL (182-369); Red Cell Distribution Width 12.2 % (11.7-14.4); White Blood Count 7.3 x10^3/uL (3.98-10.04)
[2024-12-09] MEDS ORDERED: MORPHINE SULFATE 2 MG INJ ONE (21:30)
[2024-12-09] MEDS: MORPHINE SULFATE 2 MG INJ IV ONE (21:31)
[2024-12-09 21:41] LABS: ALBUMIN 4.2 g/dL (3.5-5.0); ANION GAP 15.2 MEQ/L (5-15); BILIRUBIN,TOTAL 0.5 mg/dL (0.2-1.3); Calcium 9.1 mg/dL (8.4-10.2); Creatinine 1 1.23 mg/dL (0.52-1.04); EST GLOMERULAR FILTRATION RATE 43.9 ML/MIN; Potassium 4.4 mmol/L (3.5-5.1); Total Protein 8.3 g/dL (6.3-8.2)
[2024-12-09 21:42] LABS: INR 0.9 (0.8-3.0); PROTIME 9.9 SECONDS (9.4-12.5); PTT 24.4 SECONDS (25.1-36.5)
[2024-12-09 21:53] LABS: NT PRO BNPII 613 pg/mL (<300); TROPONIN < 0.012 ng/mL (0.000-0.033)
[2024-12-09] MEDS: Nitrostat 0.4 MG (ED) SL ONE (22:20)
[2024-12-10] MEDS ORDERED: DUONEB 0.5-3 MG/3 ml Neb IH PRN (02:11)
[2024-12-10] MEDS ORDERED: FEVERALL 650 MG PR PRN (02:13)
[2024-12-10] MEDS ORDERED: NON-FORMULARY ITEM (Linaclotide [Linzess] 72 MCG Capsule) PO SCH (02:15)
[2024-12-10] MEDS ORDERED: LIPITOR 40MG PO SCH (02:15)
--- NOTE | 2024-12-10 02:26 | PCM.HP ---
History of Present Illness - Chief Complaint Chief Complaint: CP R/O Date: 12/10/24 History of Present Illness: 84 female with medical history of histoplasmosis, HTN, rheumatoid arthritis, abdominal hiatal hernia, frequent GI related issue due to hernia presented to ER with complaint of epigastric and chest pain. On my encounter patient is alert oriented x 4 reports yesterday evening she started having epigastric pain which she thought could be because of her hiatal hernia related issue but later pain had migrated up to left chest which is sharp in nature, continuous pain radiating to the left arm numbness in nature which resolved after given nitroglycerin and morphine in ER. She denies having history of CAD. She is allergic to aspirin. On arrival to ER vitals are stable, troponin less than 0.012, chest x-ray no acute finding. Denies shortness of breath, current chest pain, abdominal pain, nausea, vomiting, fever, chill. - Review of Systems Constitutional: No Symptoms Eyes: No Symptoms Ears, Nose, & Throat: No Symptoms Respiratory: No Symptoms Cardiac: Chest Pain Abdominal/Gastrointestinal: Abdominal Pain Genitourinary Symptoms: No Symptoms Musculoskeletal: No Symptoms Neurological: No Symptoms Medications & Allergies Home Medications: Home Medication List Iron,Carbonyl [Iron Chews] 65 mg PO UD 09/25/14 [History Confirmed 12/10/24] Multivitamin [Multivitamins] 1 tab PO DAILY 09/25/14 [History Confirmed 12/10/24] Metoprolol Tartrate 50 mg [Lopressor 50 MG] 100 mg PO BID 01/17/16 [History Confirmed 12/10/24] Gabapentin 300 mg PO HS 01/16/22 [History Confirmed 12/10/24] Mecobalamin [B12 Active] 1,000 mg PO DAILY 01/16/22 [History Confirmed 12/10/24] Montelukast Sodium 10 mg [Singulair 10 MG] 10 mg PO HS 01/16/22 [History Confirmed 12/10/24] Furosemide [Lasix] 40 mg PO UD 09/28/22 [History Confirmed 12/10/24] Omeprazole 40 mg PO DAILY 09/28/22 [History Confirmed 12/10/24] Linaclotide [Linzess] 140 mg PO UD 08/11/23 [History Confirmed 12/10/24] Albuterol/Ipratropium 3ml Neb* [DUONEB 0.5-3 MG/3 ml Neb] 3 ml IH Q6HPRN PRN 08/13/23 [Rx Confirmed 12/10/24] Losartan Potassium 50 mg [Cozaar 50 MG] 50 mg PO DAILY 12/10/24 [History Confirmed 12/10/24] Potassium Gluconate [Potassium] 99 mg PO UD 12/10/24 [History Confirmed 12/10/24] Allergies/Adverse Reactions: Allergies Allergy/AdvReac Type Severity Reaction Status Date / Time Penicillins Allergy Mild Rash Verified 12/09/24 21:56 ibuprofen [From Motrin] Allergy Unknown Swelling Verified 12/09/24 21:56 soy Allergy Unknown Swelling Verified 12/09/24 21:56 aspirin AdvReac Rash Verified 12/09/24 21:56 - Past Medical History Past Medical History: Yes Neurological History: No Pertinent History ENT History: Cataracts Cardiac History: Hypertension Respiratory History: COPD Endocrine Medical History: No Pertinent History Musculoskelatal History: Fractures, Osteoarthritis, Osteoporosis, Rheumatoid Arthritis, Other GI Medical History: GERD, Hemorrhoids, Hernia, Polyps History: Other Pyscho-Social History: No Pertinent History Reproductive Disorders: No Pertinent History Comment: RA diagnosis 2014, goes for infusion every [address] Ulrich for "borderline" kidney disease , bladder infections, r hip replacement, partial hysterectomy, double knee replacement. L2 LUMBAR FX. Leaky cardiac valve left side - Past Surgical History Past Surgical History: Yes Neuro Surgical History: No Pertinent History Cardiac History: Cardiac Catheterization Respiratory Surgery: Lobectomy GI Surgical History: Appendectomy, Hernia Repair Genitourinary Surgical Hx: No Pertinent History Musculskeletal Surgical Hx: Orthopedic Surgery Female Surgical History: Hysterectomy Other Surgical History: ZAHIDA KNEE REPLACEMENTS, knee scopes x4, carpel tunnel x2 R hip replacement november 2020, r upper lobectomy. kyphoplasty January 2023 - Social History Smoking Status: Former smoker How long have you smoked: 1 year Exposure to second hand smoke: No Alcohol: Occasionally Drug Use: none - Social Determinants of Health Will the patient participate in the screening: Declined to provide - Physical Exam Vital Signs: Vital Signs - 24 hr Temp Pulse Pulse Resp BP BP Pulse Ox 12/10/24 01:30 99 F 78 18 147/65 94 L 12/10/24 00:30 68 22 138/59 93 L 12/10/24 00:08 95 12/10/24 00:00 69 19 142/63 93 L 12/09/24 23:30 68 16 124/54 94 L 12/09/24 23:00 64 17 117/66 94 L 12/09/24 22:30 69 19 128/63 94 L 12/09/24 22:00 72 21 136/65 97 12/09/24 21:30 107 H 23 135/62 96 12/09/24 21:29 98.7 F 72 16 143/79 95 12/09/24 21:24 68 12/09/24 21:07 105 H 22 143/79 93 L General Appearance: no apparent distress Neurologic Exam: alert, oriented x 3, cooperative, director fixed income II-XII nml as tested, normal mood/affect Eye Exam: PERRL/EOMI Respiratory Exam: normal breath sounds Cardiovascular Exam: regular rate/rhythm, normal heart sounds Gastrointestinal/Abdomen Exam: soft, normal bowel sounds, No tenderness Results - Labs Lab/Micro Results: Lab Results-Last 24 Hours 12/09/24 12/09/24 12/09/24 Range/Units 21:23 21:23 21:23 WBC 7.3 (3.98-10.04) x10^3/uL RBC 3.40 L (3.93-5.22) x10^6/uL Hgb 10.6 L (11.2-15.7) g/dL Hct 31.9 L (34.1-44.9) % MCV 93.8 (79.4-94.8) fL MCH 31.2 (25.6-32.2) pg MCHC 33.2 (32.2-35.5) g/dL RDW 12.2 (11.7-14.4) % Plt Count 184 (182-369) x10^3/uL MPV 9.7 (9.4-12.3) fL Gran % 32.7 L (34.0-71.1) % Immature Gran % (Auto) 0.1 (0.001-0.429) % Nucleat RBC Rel Count 0.0 (0.00-0.2) % Eos # (Auto) 0.29 (0.04-0.36) x10^3/uL Immature Gran # (Auto) 0.01 (0.001-0.031) x10^3u/L Absolute Lymphs (auto) 3.81 H (1.18-3.74) x10^3/uL Absolute Monos (auto) 0.74 (0.24-0.86) x10^3/uL Absolute Nucleated RBC 0.00 (0.00-0.012) x10^3u/L Lymphocytes % 52.3 H (19.3-51.7) % Monocytes % 10.2 (4.7-12.5) % Eosinophils % 4.0 (0.7-5.8) % Basophils % 0.7 (0.1-1.2) % Absolute Granulocytes 2.39 (1.56-6.13) x10^3/uL Basophils # 0.05 (0.01-0.08) x10^3/uL PT 9.9 (9.4-12.5) SECONDS INR 0.90 (0.8-3.0) APTT 24.4 L (25.1-36.5) SECONDS Sodium 141 (135-145) mmol/L Potassium 4.4 (3.5-5.1) mmol/L Chloride 105 (98-107) mmol/L Carbon Dioxide 26 (22-30) mmol/L Anion Gap 15.2 H (5-15) MEQ/L BUN 14 (7-17) mg/dL Creatinine 1.23 H (0.52-1.04) mg/dL Estimated GFR 43.9 ML/MIN Glucose 116 H (74-106) mg/dL Calcium 9.1 (8.4-10.2) mg/dL Total Bilirubin 0.50 (0.2-1.3) mg/dL AST 32 (14-36) U/L ALT 20 (0-35) U/L Alkaline Phosphatase 64 (38-126) U/L Troponin I (0.000-0.033) ng/mL NT-Pro-B Natriuret Pep (<300) pg/mL Serum Total Protein 8.3 H (6.3-8.2) g/dL Albumin 4.2 (3.5-5.0) g/dL Procalcitonin (0.030-0.080) ng/mL 12/09/24 12/09/24 12/09/24 Range/Units 21:23 22:08 23:23 WBC (3.98-10.04) x10^3/uL RBC (3.93-5.22) x10^6/uL Hgb (11.2-15.7) g/dL Hct (34.1-44.9) % MCV (79.4-94.8) fL MCH (25.6-32.2) pg MCHC (32.2-35.5) g/dL RDW (11.7-14.4) % Plt Count (182-369) x10^3/uL MPV (9.4-12.3) fL Gran % (34.0-71.1) % Immature Gran % (Auto) (0.001-0.429) % Nucleat RBC Rel Count (0.00-0.2) % Eos # (Auto) (0.04-0.36) x10^3/uL Immature Gran # (Auto) (0.001-0.031) x10^3u/L Absolute Lymphs (auto) (1.18-3.74) x10^3/uL Absolute Monos (auto) (0.24-0.86) x10^3/uL Absolute Nucleated RBC (0.00-0.012) x10^3u/L Lymphocytes % (19.3-51.7) % Monocytes % (4.7-12.5) % Eosinophils % (0.7-5.8) % Basophils % (0.1-1.2) % Absolute Granulocytes (1.56-6.13) x10^3/uL Basophils # (0.01-0.08) x10^3/uL PT (9.4-12.5) SECONDS INR (0.8-3.0) APTT (25.1-36.5) SECONDS Sodium (135-145) mmol/L Potassium (3.5-5.1) mmol/L Chloride (98-107) mmol/L Carbon Dioxide (22-30) mmol/L Anion Gap (5-15) MEQ/L BUN (7-17) mg/dL Creatinine (0.52-1.04) mg/dL Estimated GFR ML/MIN Glucose (74-106) mg/dL Calcium (8.4-10.2) mg/dL Total Bilirubin (0.2-1.3) mg/dL AST (14-36) U/L ALT (0-35) U/L Alkaline Phosphatase (38-126) U/L Troponin I < 0.012 < 0.012 (0.000-0.033) ng/mL NT-Pro-B Natriuret Pep 613 (<300) pg/mL Serum Total Protein (6.3-8.2) g/dL Albumin (3.5-5.0) g/dL Procalcitonin 0.041 (0.030-0.080) ng/mL - Radiology Impressions Radiology Exams & Impressions: Radiology Procedures Category Date Time Status CHEST 1 VIEW (PORTABLE) Stat Exams 12/09/24 21:18 Taken - Other Procedures and Tests Respiratory Therapy 12/10/24 01:28 BiPap/CPAP ROUTINE Oxygen Nasal Cannula 2 lpm Assessment/Plan (1) Chest pain Current Visit: Yes Status: Acute Assessment & Plan: 84 female with medical history of histoplasmosis, HTN, rheumatoid arthritis abdominal hiatal hernia presented to ER with complaint of epigastric and chest pain. Admitted to observation unit likely requiring less than 2 midnight stay for ACS rule out. #Chest pain Atypical pain which concerned could be secondary to epigastric/hiatal hernia related issue. Patient had episode of sharp chest pain which have resolved. Initial troponin negative. No history of CAD. Allergic to aspirin. Started on Plavix 75 mg daily. Initial troponin negative. Continue cardiac monitoring and trend troponin. Started on atorvastatin 40 mg daily. #HTN Continue losartan 50 mg daily, metoprolol titrate 100 mg daily, Lasix 40 mg daily. DVT prophylaxis: Heparin subcu Telemedicine Statement: 1) Service was provided using HIPAA compliant platform utilizing [employer] for audio/visual equipment. 2) Patient location: [facility] ER 3) Provider location: [place] 4) Participants dog control officer: Bedside RN, patient 5) Consent was obtained and the patient was seen with nurse assisting at the bedside. Anticipated length of stay: I anticipate the patient requires hospital level of care for at least < 2 midnights or longer based on the complexity of the patient's medical illness chest pain/ACS rule out which includes the need for ACS workup that cannot be done at a lower level of care Consent: - Patients identity was confirmed. - Medical condition or illness was discussed with the patient/personal field representatives director. - Current proposed treatment for medical condition or illness was explained to patient/personal field representatives director along with the likely benefits, significant risks and complications associated with the treatment. - The patient/personal field representatives director verbally authorized treatment to be provided by audio/video, which may include a limited review of patients current health status, medication or other treatment recommendations, patient education and an opportunity to ask questions about condition and treatment. - I have reviewed all available old records and data - Verbal Consent granted: Yes MIPS Reviewed Home medication, current medication and Inpatient medication with patient Pt was screened for Housing, Food, Utility difficulties, Transportation needs and living conditions I spent total of 76minutes providing care to this patient which includes time for face to face visit via telemedicine, review of medical records, imaging studies and discussion of findings with providers, the patient. Patient is alert oriented x 4 and asked for DNR/DNI. She reports she already had confirmed CODE STATUS prior to arrival to hospital. Rounding physician to resume care at 7 AM. Code(s): R07.9 - CHEST PAIN, UNSPECIFIED (2) Hypertension Current Visit: No Status: Chronic Qualifiers: Code(s): I10 - ESSENTIAL (PRIMARY) HYPERTENSION Telemedicine Encounter - Telemedicine Encounter Telemedicine Encounter: "The entirety of this encounter was performed via Telemedicine" This visit was performed using real-time audio and video connection between my location and thepatients locationwith the assistance of a surrogateat the patients location. Written or verbal consent was obtained from the patient/guardian to perform this visit usings[employer]X Diagnosticstelemedicine technology. Any patient questions regarding the telemedicine interaction were answered.
[2024-12-10] MEDS: PLAVIX Tablet PO SCH (02:43)
[2024-12-10] MEDS ORDERED: TYLENOL 325 MG PO PRN (05:00)
[2024-12-10] MEDS ORDERED: TYLENOL 325 MG ONE (05:18)
[2024-12-10] MEDS: TYLENOL 325 MG PO PRN (05:24)
[2024-12-10 06:07] LABS: Hematocrit 33.4 % (34.1-44.9); Hemoglobin 10.6 g/dL (11.2-15.7); Mean Cell Volume 97.7 fL (79.4-94.8); Mean Corpuscular Hgb Concent. 31.7 g/dL (32.2-35.5); Mean Platelet Volume 10.1 fL (9.4-12.3); Platelet Count 167 x10^3/uL (182-369); Red Blood Count 3.42 x10^6/uL (3.93-5.22); Red Cell Distribution Width 12.4 % (11.7-14.4); White Blood Count 5.3 x10^3/uL (3.98-10.04)
[2024-12-10 06:14] LABS: ANION GAP 13.5 MEQ/L (5-15); Creatinine 1 1.25 mg/dL (0.52-1.04); Potassium 4.2 mmol/L (3.5-5.1)
--- NOTE | 2024-12-10 07:19 | XRAY ---
Indication: Chest pain. Comparison: January 16, 2022 Portable chest demonstrates enlarging very large hiatal hernia with intrathoracic stomach with subsequent bilateral compressive atelectasis. No focal infiltrates, consolidation, or large effusion. Heart borderline enlarged. Bony thorax intact with osteopenia and degenerative changes. No acute findings.
[2024-12-10] MEDS ORDERED: MEDICATION INTERVENTION MC SCH (08:00)
[2024-12-10 09:40] VITALS: O2SAT 94
[2024-12-10] MEDS: HEPARIN 5000 UNITS/0.5 ML (HIGH RISK MED) SQ SCH (09:45)
--- NOTE | 2024-12-10 09:46 | PCM.DS ---
Discharge Summary Date of Admission: 12/10/24 00:46 Date of Discharge: 12/10/24 Admitting Physician: LOBITO DELGADILLO MD Primary Care Provider: MACIE MENDEZ MD Allergies Allergies Penicillins Allergy (Mild, Verified 12/09/24 21:56) Rash shakes ibuprofen [From Motrin] Allergy (Unknown, Verified 12/09/24 21:56) Swelling high doses only soy Allergy (Unknown, Verified 12/09/24 21:56) Swelling swell to the point of suffocation aspirin Adverse Reaction (Verified 12/09/24 21:56) Rash pt is on low dose and dose fine. Pt states she brakes out with regular dose asa Hospital Summary - Hospital Course Hospital Course: An 84-year-old female with a medical history of histoplasmosis, hypertension, rheumatoid arthritis, hiatal hernia, and frequent GI-related symptoms due to the hernia presented to the emergency department with complaints of epigastric and chest pain. During my evaluation, the patient was alert and oriented x4. She reported that the epigastric pain began the evening prior and was initially suspected to be related to her known hiatal hernia. However, the pain later migrated to the left side of her chest, described as sharp and continuous, radiating to the left arm with associated numbness. These symptoms resolved after administration of nitroglycerin and morphine in the ED. She denies any history of coronary artery disease and reports an allergy to aspirin. On arrival, her vital signs were stable. Troponin was <0.012, and chest X-ray showed no acute findings. She denies current chest pain, abdominal pain, shortness of breath, nausea, vomiting, fever, or chills. Today, she reports feeling significantly better. Serial troponins (x3) were negative, and she is requesting discharge. She has an outpatient follow-up scheduled for a barium swallow on Wednesday and plans to follow up with Dr. Alford for cardiology. She states she will call to schedule the appointment herself and denies any further concerns at this time. - Vitals & Intake/Output Vital Signs: Vital Signs Temperature 97.7 F 12/10/24 07:20 Pulse Rate 75 12/10/24 09:38 Respiratory Rate 18 12/10/24 09:38 Blood Pressure 136/62 12/10/24 07:20 O2 Sat by Pulse Oximetry 94 L 12/10/24 09:38 Intake & Output: Intake & Output 12/07/24 12/08/24 12/09/24 12/10/24 11:59 11:59 11:59 11:59 Intake Total 480 Output Total 500 Balance -20 Weight 87 kg - Lab Result Diagrams: 12/10/24 05:48 12/10/24 05:48 Lab Results-Last 24 Hrs: Lab Results-Last 24 Hours 12/09/24 12/09/24 12/09/24 Range/Units 21:23 21:23 21:23 WBC 7.3 (3.98-10.04) x10^3/uL RBC 3.40 L (3.93-5.22) x10^6/uL Hgb 10.6 L (11.2-15.7) g/dL Hct 31.9 L (34.1-44.9) % MCV 93.8 (79.4-94.8) fL MCH 31.2 (25.6-32.2) pg MCHC 33.2 (32.2-35.5) g/dL RDW 12.2 (11.7-14.4) % Plt Count 184 (182-369) x10^3/uL MPV 9.7 (9.4-12.3) fL Gran % 32.7 L (34.0-71.1) % Immature Gran % (Auto) 0.1 (0.001-0.429) % Nucleat RBC Rel Count 0.0 (0.00-0.2) % Eos # (Auto) 0.29 (0.04-0.36) x10^3/uL Immature Gran # (Auto) 0.01 (0.001-0.031) x10^3u/L Absolute Lymphs (auto) 3.81 H (1.18-3.74) x10^3/uL Absolute Monos (auto) 0.74 (0.24-0.86) x10^3/uL Absolute Nucleated RBC 0.00 (0.00-0.012) x10^3u/L Lymphocytes % 52.3 H (19.3-51.7) % Monocytes % 10.2 (4.7-12.5) % Eosinophils % 4.0 (0.7-5.8) % Basophils % 0.7 (0.1-1.2) % Absolute Granulocytes 2.39 (1.56-6.13) x10^3/uL Basophils # 0.05 (0.01-0.08) x10^3/uL PT 9.9 (9.4-12.5) SECONDS INR 0.90 (0.8-3.0) APTT 24.4 L (25.1-36.5) SECONDS Sodium 141 (135-145) mmol/L Potassium 4.4 (3.5-5.1) mmol/L Chloride 105 (98-107) mmol/L Carbon Dioxide 26 (22-30) mmol/L Anion Gap 15.2 H (5-15) MEQ/L BUN 14 (7-17) mg/dL Creatinine 1.23 H (0.52-1.04) mg/dL Estimated GFR 43.9 ML/MIN Glucose 116 H (74-106) mg/dL Calcium 9.1 (8.4-10.2) mg/dL Total Bilirubin 0.50 (0.2-1.3) mg/dL AST 32 (14-36) U/L ALT 20 (0-35) U/L Alkaline Phosphatase 64 (38-126) U/L Troponin I (0.000-0.033) ng/mL NT-Pro-B Natriuret Pep (<300) pg/mL Serum Total Protein 8.3 H (6.3-8.2) g/dL Albumin 4.2 (3.5-5.0) g/dL Procalcitonin (0.030-0.080) ng/mL 12/09/24 12/09/24 12/09/24 Range/Units 21:23 22:08 23:23 WBC (3.98-10.04) x10^3/uL RBC (3.93-5.22) x10^6/uL Hgb (11.2-15.7) g/dL Hct (34.1-44.9) % MCV (79.4-94.8) fL MCH (25.6-32.2) pg MCHC (32.2-35.5) g/dL RDW (11.7-14.4) % Plt Count (182-369) x10^3/uL MPV (9.4-12.3) fL Gran % (34.0-71.1) % Immature Gran % (Auto) (0.001-0.429) % Nucleat RBC Rel Count (0.00-0.2) % Eos # (Auto) (0.04-0.36) x10^3/uL Immature Gran # (Auto) (0.001-0.031) x10^3u/L Absolute Lymphs (auto) (1.18-3.74) x10^3/uL Absolute Monos (auto) (0.24-0.86) x10^3/uL Absolute Nucleated RBC (0.00-0.012) x10^3u/L Lymphocytes % (19.3-51.7) % Monocytes % (4.7-12.5) % Eosinophils % (0.7-5.8) % Basophils % (0.1-1.2) % Absolute Granulocytes (1.56-6.13) x10^3/uL Basophils # (0.01-0.08) x10^3/uL PT (9.4-12.5) SECONDS INR (0.8-3.0) APTT (25.1-36.5) SECONDS Sodium (135-145) mmol/L Potassium (3.5-5.1) mmol/L Chloride (98-107) mmol/L Carbon Dioxide (22-30) mmol/L Anion Gap (5-15) MEQ/L BUN (7-17) mg/dL Creatinine (0.52-1.04) mg/dL Estimated GFR ML/MIN Glucose (74-106) mg/dL Calcium (8.4-10.2) mg/dL Total Bilirubin (0.2-1.3) mg/dL AST (14-36) U/L ALT (0-35) U/L Alkaline Phosphatase (38-126) U/L Troponin I < 0.012 < 0.012 (0.000-0.033) ng/mL NT-Pro-B Natriuret Pep 613 (<300) pg/mL Serum Total Protein (6.3-8.2) g/dL Albumin (3.5-5.0) g/dL Procalcitonin 0.041 (0.030-0.080) ng/mL 12/10/24 12/10/2412/10/25 Range/Units 05:48 05:48 05:48 WBC 5.3 (3.98-10.04) x10^3/uL RBC 3.42 L (3.93-5.22) x10^6/uL Hgb 10.6 L (11.2-15.7) g/dL Hct 33.4 L (34.1-44.9) % MCV 97.7 H (79.4-94.8) fL MCH 31.0 (25.6-32.2) pg MCHC 31.7 L (32.2-35.5) g/dL RDW 12.4 (11.7-14.4) % Plt Count 167 L (182-369) x10^3/uL MPV 10.1 (9.4-12.3) fL Gran % (34.0-71.1) % Immature Gran % (Auto) (0.001-0.429) % Nucleat RBC Rel Count (0.00-0.2) % Eos # (Auto) (0.04-0.36) x10^3/uL Immature Gran # (Auto) (0.001-0.031) x10^3u/L Absolute Lymphs (auto) (1.18-3.74) x10^3/uL Absolute Monos (auto) (0.24-0.86) x10^3/uL Absolute Nucleated RBC (0.00-0.012) x10^3u/L Lymphocytes % (19.3-51.7) % Monocytes % (4.7-12.5) % Eosinophils % (0.7-5.8) % Basophils % (0.1-1.2) % Absolute Granulocytes (1.56-6.13) x10^3/uL Basophils # (0.01-0.08) x10^3/uL PT (9.4-12.5) SECONDS INR (0.8-3.0) APTT (25.1-36.5) SECONDS Sodium 142 (135-145) mmol/L Potassium 4.2 (3.5-5.1) mmol/L Chloride 104 (98-107) mmol/L Carbon Dioxide 28 (22-30) mmol/L Anion Gap 13.5 (5-15) MEQ/L BUN 14 (7-17) mg/dL Creatinine 1.25 H (0.52-1.04) mg/dL Estimated GFR 43.0 ML/MIN Glucose 95 (74-106) mg/dL Calcium 9.0 (8.4-10.2) mg/dL Total Bilirubin (0.2-1.3) mg/dL AST (14-36) U/L ALT (0-35) U/L Alkaline Phosphatase (38-126) U/L Troponin I < 0.012 (0.000-0.033) ng/mL NT-Pro-B Natriuret Pep (<300) pg/mL Serum Total Protein (6.3-8.2) g/dL Albumin (3.5-5.0) g/dL Procalcitonin (0.030-0.080) ng/mL - Radiology Exams Ordered Rad Exams-Entire Visit: Radiology Procedures Category Date Time Status CHEST 1 VIEW (PORTABLE) Stat Exams 12/09/24 21:18 Completed - Procedures and Test Procedures and Tests throughout Hospitalization: Therapy Orders & Screens 12/10/24 01:28 BiPap/CPAP ROUTINE Comment: Diagnosis: chest pain Oxygen Nasal Cannula 2 lpm Comment: Diagnosis: chest pain 12/10/24 08:00 RT Screen per Nursing Assess ONCE Comment: Protocol Order Physician Instructions: Greater than 3 points order RT Admission Screen Reason For Exam: Triggered on Admission Diagnosis: CP R/O Diagnosis: CP R/O Pneumonia: No Home O2: Yes Asthma: No CHF: Yes Home CPAP/BIPAP: Yes Home Nebs/MDI: No Total Points: 13 12/10/24 09:38 Respiratory Therapy Assessment DAILY Comment: Diagnosis: CP R/O Discharge Exam General Appearance: no apparent distress, alert, obese Neurologic Exam: alert, oriented x 3, cooperative, normal mood/affect, nml cerebellar function, sensation nml, No motor deficits Eye Exam: PERRL, EOMI, eyes nml inspection Ears, Nose, Throat Exam: normal ENT inspection, pharynx normal, moist mucous membranes Neck Exam: normal inspection, non-tender, supple, full range of motion Respiratory Exam: normal breath sounds, lungs clear, No respiratory distress Cardiovascular Exam: regular rate/rhythm, normal heart sounds Gastrointestinal/Abdomen Exam: soft, No tenderness, No mass Pelvic Exam: deferred Rectal Exam: deferred Back Exam: normal inspection, normal range of motion, No CVA tenderness, No vertebral tenderness Extremity Exam: normal inspection, normal range of motion Skin Exam: normal color, warm, dry Final Diagnosis/Problem List - Final Discharge Diagnosis/Problem (1) Chest pain Current Visit: Yes Status: Acute Assessment & Plan: - CP resolved - TROPS x3 negative - Tele - EKG - CXR negative for acute concern - Pt feels her sxs may be r/t hital hernia - F/U OP with Dr. Alford - CBC, CMP reviewed Code(s): R07.9 - CHEST PAIN, UNSPECIFIED (2) Hiatal hernia Current Visit: Yes Status: Chronic Assessment & Plan: - F/U for scheduled barium swallow Weds. Code(s): K44.9 - DIAPHRAGMATIC HERNIA WITHOUT OBSTRUCTION OR GANGRENE (3) Obesity (BMI 30-39.9) Current Visit: Yes Status: Chronic Assessment & Plan: - Advised diet and exercise control Code(s): E66.9 - OBESITY, UNSPECIFIED (4) Chronic kidney disease Current Visit: No Status: Chronic Assessment & Plan: - Creat 1.25- at baseline - F/U with Dr. Ulrich as scheduled- nephro Code(s): N18.9 - CHRONIC KIDNEY DISEASE, UNSPECIFIED - Discharge Discharge Date: 12/10/24 Disposition: Home, Self-Care Condition: Stable Prescriptions: Continue Iron,Carbonyl [Iron Chews] 65 mg PO UD Multivitamin [Multivitamins] 1 tab PO DAILY Metoprolol Tartrate 50 mg [Lopressor 50 MG] 100 mg PO BID Mecobalamin [B12 Active] 1,000 mg PO DAILY Montelukast Sodium 10 mg [Singulair 10 MG] 10 mg PO HS Gabapentin 300 mg PO HS Furosemide [Lasix] 40 mg PO UD Omeprazole 40 mg PO DAILY Linaclotide [Linzess] 140 mg PO UD Albuterol/Ipratropium 3ml Neb* [DUONEB 0.5-3 MG/3 ml Neb] 3 ml IH Q6HPRN PRN PRN Reason: Shortness Of Breath/Wheezing Potassium Gluconate [Potassium] 99 mg PO UD Losartan Potassium 50 mg [Cozaar 50 MG] 50 mg PO DAILY Follow up with: MACIE MENDEZ MD [Primary Care Provider, INTERNAL MEDICINE]
[2024-12-10] MEDS ORDERED: NON-FORMULARY ITEM (Multivitamin [Multivitamins] 1 EACH Capsule) PO SCH (10:00)
[2024-12-10] MEDS ORDERED: NON-FORMULARY ITEM (Omeprazole [Omeprazole] 40 MG Capsule.Dr) PO SCH (10:00)
[2024-12-10] MEDS: Lopressor 50 MG PO SCH (11:05)
[2024-12-10] MEDS: Protonix 40MG Tablet PO SCH (11:05)
[2024-12-10] MEDS: THERAGRAN MULTIVITAMIN PO SCH (11:06)
[2024-12-10] MEDS: Cozaar 50 MG PO SCH (11:06)
[2024-12-10] MEDS: Lasix 40 MG PO SCH (11:07)
[2024-12-10 12:03] VITALS: BP 126/58; PULSE 74; RESP 16; TEMP 98.4
[2024-12-10] MEDS ORDERED: Neurontin PO SCH (22:00)
[2024-12-10] MEDS ORDERED: Singulair 10 MG PO SCH (22:00)
[2024-12-11] MEDS ORDERED: IRON CARBONYL 15 MG PO SCH (10:00)
[2024-12-11] MEDS ORDERED: FEOSOL 325 MG PO SCH (10:00)
== END 2024-12-10 13:30 | disposition home or self-care (01) ==
LOC: ED 21:07 → MED SURG 12-10 00:46
PROVIDERS: ADMIT Internal Medicine; ATTEND Internal Medicine
DX: R07.9 Chest pain, unspecified (principal); K44.9 Diaphragmatic hernia without obstruction or gangrene; R60.0 Localized edema; M06.9 Rheumatoid arthritis, unspecified; R10.13 Epigastric pain; E66.9 Obesity, unspecified; I12.9 Hypertensive chronic kidney disease with stage 1 through stage 4 chronic kidney disease, or unspecified chronic kidney disease; N18.9 Chronic kidney disease, unspecified; Z79.899 Other long term (current) drug therapy
CPT/HCPCS: 36415; 71045; 80048; 80053; 83880; 84145; 84484; 85025; 85027; 85610; 85730; 93005; 93268; 94660; 94760; 96374; 99285; J2270; Q3014; A9270-GY; G0378